=== PATIENT | male | born 1990 | race Caucasian/White ===

== ENCOUNTER 2017-12-25 19:47 | Inpatient (IN) | payer OTHER ==
[~2017-12-25] VITALS: Ht 177.8 cm; Wt 100.7 kg
--- NOTE | 2017-12-25 19:59 | NUR ---
BB AMBULANCE FROM [facility]; CP, FEVER X 1 DAY. NO SOB OR PAIN NOTED. VSS WITH TEMP 103. PT IS VENT/TRACH WITH RT MADE AWARE EN ROUTE. WILL CONTINUE TO MONITOR FOR ANY CHANGES. FAMILY AT BEDSIDE
--- NOTE | 2017-12-25 20:04 | NUR ---
LISA YOUNG AT BEDSIDE SANDRA
--- NOTE | 2017-12-25 20:19 | NUR ---
EKG AT BEDSIDE
[2017-12-25 20:23] LABS: BASOPHILS # (AUTO) 0.4 /CMM (0.0-0.2); EOSINOPHILS % (AUTO) 0.2 % (0.0-6.0); HEMATOCRIT 26 % (39-51); HEMOGLOBIN 8.8 g/dL (13.5-17.5); LYMPHOCYTES # (AUTO) 0.7 /CMM (0.8-4.8); MEAN CORPUSCULAR HGB CONC 34 g/dl (31.0-36.0); MEAN CORPUSCULAR VOLUME 91 fL (80-96); MONOCYTES # (AUTO) 0.6 /CMM (0.1-1.30); MONOCYTES % (AUTO) 6.3 % (2.0-12.0); NEUTROPHILS # (AUTO) 7.8 /CMM (1.8-8.9); NEUTROPHILS % (AUTO) 82.5 % (43.0-81.0); PLATELET COUNT (AUTO) 257 /CMM (150-450); RDW COEFFICIENT OF VARIATION 13.3 (11.5-15.0); RED BLOOD CELL COUNT(AUTO) 2.83 MIL/uL (4.5-6.0); WHITE BLOOD COUNT (AUTO) 9.5 K/uL (4.3-11.0)
[2017-12-25] MEDS ORDERED: IV NS 0.9% 1,000 ML BAG IV ONE (20:30)
[2017-12-25] MEDS ORDERED: ACETAMINOPHEN ES 500 MG TABLET GT ONE (20:30)
--- NOTE | 2017-12-25 20:34 | NUR ---
RT PT RECEIVED VIA TRANSPORT TEAM ON [facility] VENT. PT PLACED ON HOSPITAL VENT WITH NOTED SETTING GIVEN BY TRANSPORT RT. PT TOLERATING SETTING WELL. NO SOB OR REPS DISTRESS NOTED AT THIS TIME. SERVICE LINE BUS CLEANER DONE. AMBU BAG AT [facility]. TRACH PATENT AND SECURE. ALARMS SET AND AUDIBLE. VENT TO RED OUTLET. WILL CONTINUE TO MONITOR PT FOR ANY CHANGES. Addendum: 12/25/17 at 2036 by VERONICA BRANDON RT Amended: Links added.
[2017-12-25 20:35] LABS: INR 1.24 (0.85-1.15)
[2017-12-25] MEDS ORDERED: ACETAMINOPHEN ES 500 MG TABLET ONE (20:37)
[2017-12-25 20:40] LABS: ALANINE AMINOTRANSFERASE 90 U/L (12-78); ALBUMIN 1.5 g/dL (3.4-5.0); ALKALINE PHOSPHATASE 113 U/L (46-116); ASPARTATE AMINOTRANSFERASE 52 U/L (15-37); BILIRUBIN,DIRECT 0.1 mg/dL (0.0-0.2); BILIRUBIN,TOTAL 0.1 mg/dL (0.2-1.0); CALCIUM, SERUM 8.5 mg/dL (8.5-10.1); CARBON DIOXIDE 36 mmol/L (21-32); CHLORIDE 98 mmol/L (98-107); CREATININE 0.3 mg/dL (0.6-1.3); GLUCOSE 130 mg/dL (74-106); POTASSIUM 3.9 mmol/L (3.5-5.1); SODIUM SERUM 135 mmol/L (136-145); TOTAL PROTEIN, SERUM 6.7 g/dL (6.4-8.2); UREA NITROGEN, BLOOD 17 mg/dL (7-18)
[2017-12-25 20:46] LABS: TROPONIN I < 0.017 ng/mL (0.00-0.056)
--- NOTE | 2017-12-25 20:55 | NUR ---
BIN WORKER AT BEDSIDE
[2017-12-25 21:12] LABS: APPEARANCE,URINE Slightly Cloudy (CLEAR); BILIRUBIN,URINE Negative (NEGATIVE); BLOOD, URINE Small Ery/uL (NEGATIVE); COLOR,URINE Other (YELLOW); KETONES,URINE Negative (NEGATIVE); LEUKOCYTE ESTERASE ,URINE Small (NEGATIVE); NITRITE, URINE Negative (NEGATIVE); PH,URINE 8.5 (5.0-8.0); PROTEIN,URINE 100 mg/dl (NEGATIVE); UGLUCOSE Negative (NEGATIVE); UROBILINOGEN,URINE 0.2 EU/dL (0.2)
[2017-12-25 21:16] LABS: BACTERIA,URINE Many /HPF (None Seen); SQUAMOUS EPITHELIAL CELL,UR Few /HPF (None Seen); URINE AMORPHOUS URATE Moderate /HPF (None Seen); WBC,URINE TOO NUMEROUS TO COUN /HPF (0-3)
[2017-12-25] MEDS ORDERED: VANCOMYCIN 1 GM VIAL ONE (21:26)
[2017-12-25] MEDS ORDERED: CEFEPIME 1 GM VIAL ONE (21:26)
--- NOTE | 2017-12-25 21:26 | NUR ---
CALLED [facility] FOR PANEL CALL, DR KEEGAN CARROLL WAS PAGED.
[2017-12-25] MEDS ORDERED: VANCOMYCIN 1 GM in IV D5W 250 ML IV ONE (21:30)
[2017-12-25] MEDS ORDERED: CEFEPIME 1 GM in IV D5W 50 ML IV ONE (21:30)
--- NOTE | 2017-12-25 22:37 | NUR ---
PATIENT IS ASSIGNED TO TELE BED RM# [id number] IN THE TIAN
--- NOTE | 2017-12-25 22:43 | NUR ---
CALLING REPORT TO TIAN NURSE.
--- NOTE | 2017-12-25 22:45 | NUR ---
NURSE TO CALL BACK FOR REPORT.
[2017-12-25 22:58] VITALS: BP 113/69
--- NOTE | 2017-12-25 22:58 | NUR ---
REPORT GIVEN TO ROMULO PARR - TIAN.
[2017-12-25] MEDS ORDERED: ALBU2.5V13 NEB (23:02)
[2017-12-25] MEDS ORDERED: DOCU-141 GT (23:02)
[2017-12-25] MEDS ORDERED: MAGN400O21 PO (23:16)
[2017-12-25] MEDS ORDERED: MIRT15TA PO (23:16)
[2017-12-25] MEDS ORDERED: LACT1CAP61 PO (23:16)
[2017-12-25] MEDS ORDERED: MULT1TAB73 GT (23:16)
[2017-12-25] MEDS ORDERED: TRAM50TA2 GT (23:16)
[2017-12-25] MEDS ORDERED: GABA-532 PO (23:16)
[2017-12-25] MEDS ORDERED: HYDR-552 PO (23:16)
[2017-12-25] MEDS ORDERED: LEVE500T9 PO (23:16)
[2017-12-25] MEDS ORDERED: ACET-868 GT (23:16)
[2017-12-25] MEDS ORDERED: IBUP-1953 PO (23:16)
[2017-12-25 23:27] VITALS: BP 127/79
--- NOTE | 2017-12-25 23:49 | NUR ---
RN NOTE RECEIVED REPORT FROM [facility], PATIENT WAS TRANSFERED FROM ER VIA GURNEY, MOTHER IS BY BEDSIDE, MULTIPLE WOUNDS, PICTURES TAKEN AND PLACED IN THE CHART, NO RESPIRATORY DISTRESS NOTED, VITAL SIGNS TAKEN, TEMPERATURE, TYLENOL WAS GIVEN IN THE ER, COLD BATH PROVIDED, TOLERATED WELL, SINUS TACHY HR 106, PATIENT CAME WITH GILBERT CATHETER FROM THE FACILITY, GILBERT IS INTACT, ON MECHANICAL VENTILATOR, TOLERATES SETTING WELL, ALL SAFETY MEASURES TAKEN, CALL LIGHT WITHIN REACG, ALL BELONGINGS WITHIN REACH, BED IN THE LOWEST POSITION, WILL CONTINUE TO MONITOR PATIENT
[2017-12-26] VITALS (7 sets, daily range): BP systolic 104–113; BP diastolic 64–78
[2017-12-26] MEDS ORDERED: Z GUARD REMEDY 2 OZ OINT TP PRN
[2017-12-26] MEDS ORDERED: ONDANSETRON HCL/PF 4 MG/2 ML VIAL IVP PRN
[2017-12-26] MEDS ORDERED: IBUPROFEN 400 MG TABLET PO PRN
[2017-12-26] MEDS ORDERED: MORPHINE SULFATE INJ 2 MG/ML DISP.SYRIN IV PRN
[2017-12-26] MEDS: IV NS 0.9% 1,000 ML IV PRN ×2 (01:32→20:24)
--- NOTE | 2017-12-26 01:42 | NUR ---
RN NOTE PATIENT IS ALERT/ORIENTED X 3 SAID THAT HE USED TO EAT REGULAR DIET AND FIBERSOURCE GT- FEEDING AT THE [facility], CLARIFIED WITH KEEGAN CARROLL DNP AND KEEGAN CARROLL APPROVED TO PUT AN ORDER FOR REGULAR DIET AND FIBERSOURCE AT 65 ML/HR
[2017-12-26] MEDS: FIBERSOURCE HN 1,000 ML BOTTLE GT PRN ×2 (01:56→23:32)
[2017-12-26] MEDS ORDERED: FIBERSOURCE HN 1,000 ML BOTTLE GT PRN (02:00)
[2017-12-26] MEDS: IPRATROPIUM NEB FS 0.5 MG/2.5 ML AMPUL.NEB NEB SCH ×6 (04:21→23:25)
[2017-12-26] MEDS ORDERED: VANCOMYCIN 1 GM VIAL ONE (05:06)
[2017-12-26] MEDS ORDERED: MEROPENEM 1 G VIAL IV ONE (05:07)
[2017-12-26] MEDS: MEROPENEM 1 G in IV NS 0.9% 100 ML IV SCH ×3 (05:26→20:22)
[2017-12-26] MEDS ORDERED: VANCOMYCIN 1 GM in IV D5W 250 ML IV ONE (06:00)
--- NOTE | 2017-12-26 06:29 | NUR ---
RN NOTE PATIENT IS STABLE, NO RESPIRATORY DISTRESS NOTED, TOLERATED MECHANICAL VENTILATOR SETTING WELL, AFEBRILE, ALL SAFETY MEASURES TAKEN, MOTHER IS BY BEDSIDE
[2017-12-26 06:40] LABS: BASOPHILS % (AUTO) 0.3 % (0.0-2.0); EOSINOPHILS % (AUTO) 0.4 % (0.0-6.0); HEMATOCRIT 27 % (39-51); HEMOGLOBIN 8.7 g/dL (13.5-17.5); LYMPHOCYTES # (AUTO) 1.1 /CMM (0.8-4.8); LYMPHOCYTES % (AUTO) 9.7 % (20.0-44.0); MEAN CORPUSCULAR HGB CONC 33 g/dl (31.0-36.0); MEAN CORPUSCULAR VOLUME 94 fL (80-96); MONOCYTES # (AUTO) 1.1 /CMM (0.1-1.30); MONOCYTES % (AUTO) 9.6 % (2.0-12.0); NEUTROPHILS # (AUTO) 8.8 /CMM (1.8-8.9); PLATELET COUNT (AUTO) 223 /CMM (150-450); RDW COEFFICIENT OF VARIATION 14.3 (11.5-15.0); RED BLOOD CELL COUNT(AUTO) 2.83 MIL/uL (4.5-6.0); WHITE BLOOD COUNT (AUTO) 10.9 K/uL (4.3-11.0)
[2017-12-26] MEDS ORDERED: FEE PK DOSING 1 MIN EA MC ONE (07:05)
[2017-12-26 07:12] LABS: THYROID STIMULATING HORMONE 2.666 uIU/mL (0.358-3.74)
[2017-12-26 07:13] LABS: ALBUMIN 1.5 g/dL (3.4-5.0); BILIRUBIN,TOTAL 0.2 mg/dL (0.2-1.0); CALCIUM, SERUM 7.9 mg/dL (8.5-10.1); CREATININE 0.2 mg/dL (0.6-1.3); PHOSPHORUS 2.6 mg/dL (2.5-4.9); POTASSIUM 3.1 mmol/L (3.5-5.1); TOTAL PROTEIN, SERUM 6.4 g/dL (6.4-8.2)
[2017-12-26] MEDS: ALBUTEROL FS 2.5 MG/0.5 ML VIAL.NEB NEB SCH ×4 (07:47→19:26)
--- NOTE | 2017-12-26 07:47 | NUR ---
ECONOMICS DEPARTMENT CHAIR NOTE PATIENT IN BED , ALL NEEDS ATTENDED RT AT BEDSIDE , FAMILY AT BEDSIDE , WITH TRACH TO VENT SETTING ORDERED, AMBU BAG AT HOB AT ALL TIME, ALERT ORIENTED X3 , WITH G TUBE FEEDING ORDERED KEEP HOB ELEVATED AT ALL TIME ON ,IVF ORDERED RESPIRATION UNLABORED , WILL CONT TO MONITOR CLOSELY
[2017-12-26] MEDS: LEVETIRACETAM (250 MG) 250 MG TABLET PO SCH ×2 (08:44→20:22)
[2017-12-26] MEDS: GABAPENTIN 100 MG CAPSULE PO SCH ×3 (08:44→16:22)
[2017-12-26] MEDS: ACETAMINOPHEN 325 MG TABLET PO PRN ×2 (08:44→23:32)
[2017-12-26] MEDS: TRAMADOL HCL 50 MG TABLET PO SCH ×2 (08:47→16:22)
--- NOTE | 2017-12-26 09:00 | NUR ---
BONE CHAR KILN OPERATOR NOTE T 100.2 TYLENOL VIA G TUBE GIVEN, REFUND TO HAVE BREAKFAST WILL F\U , REFUSED TO HAVE COOLING MEASURE AT THIS TIME ,WILL CONT TO MONITOR
[2017-12-26] MEDS: Magnesium 1GM/D5W 100ML PREMIX 100 ML IV SCH ×4 (09:32→12:37)
--- NOTE | 2017-12-26 09:38 | NUR ---
DYE HOUSE HELPER NOTE SPOKE WITH DR CAM LEVY AT BEDSIDE ,AWARE RADHA T T100.2 AND MAG LEVEL 1.0 WITH NEW ORDER 4 G OF MAG GIVEN WILL F\U
--- NOTE | 2017-12-26 10:00 | NUR ---
BLACK TOP ROLLER NOTE REFUSED REPOSITION , OFFERED X2 AND EXPANDED OF BENEFITS OF REPOSITION ,STILL REFUSING WILL MONITOR CLOSELY
[2017-12-26] MEDS: POTASSIUM CHLORIDE 20 MEQ TAB.PRT.SR PO SCH ×2 (11:25→12:37)
--- NOTE | 2017-12-26 12:10 | NUR ---
J2EE DEVELOPER NOTE OFFERED APPLY ICE PACK FOR COOLING MEASURE STILL REFUSED , ALSO REFUSED REPOSITION , EXPLAINED OF IMPORTANCE OF REPOSITION , BUT STILL STRONGLY REFUSED ,WILL CONT TO ENCOURAGING Addendum: 12/26/17 at 1311 by LÁZARO VIERA RN STILL REFUSING REPOSITION IN BED ,OFFERED X3 AND EXPLAINED OF BENEFITS OR REPOSITION, MOTHER AT BEDSIDE STILL REFUSING STATED PATIENT VERY TIRED DID NOT SLEEP ALL NIGHT , PATIENT ON ISOLEX AIR LOSS BED ,WILL CONT TO MONITOR . ANGEL WOUND NURSE AWARE
--- NOTE | 2017-12-26 12:30 | NUR ---
MELTING FURNACE SKIMMER NOTE SPOKE WITH ANGEL WOUND NURSE STATED THAT WOUND NURSE RN WILL COME TO SEE PATIENT
--- NOTE | 2017-12-26 14:22 | NUR ---
SATURATOR OPERATOR NOTE SPOKE WITH MAGNOLIA BRENNAN RN PRODUCT SAFETY ASSOCIATE NOTIFUED THAT T 100.2 TYLENOL WAS H GIVEN , ALSO C\O CONSTIPATION ,AND OK TO PLACE DVT PUMP, WILL F\U AND MAG 1.0 MAG 4 GRAM WAS GIVEN BY ORDER DR LEVY
[2017-12-26] MEDS: VANCOMYCIN 0.75 GM in IV D5W 250 ML IV SCH ×2 (14:26→21:27)
[2017-12-26] MEDS ORDERED: BISACODYL SUPP (10 MG) 10 MG/SUPP.RECT SUPP.RECT RC ONE (14:30)
--- NOTE | 2017-12-26 15:21 | NUR ---
MOTOR TUNE UP SPECIALIST NOTE DULCOLAX SUP RECTALLY PLACED ORDERED KEEP CLEAN DRY , ALL NEEDS ATTENDED , WILL CONT TO MONITOR CLOSELY
[2017-12-26] MEDS: ACETAMINOPHEN 650 MG/20.3 ML UDC GT PRN (16:23)
[2017-12-26] MEDS: LACTOBACILLUS RHAMNOSUS GG 1 EACH CAP.SPRINK GT SCH (16:23)
--- NOTE | 2017-12-26 16:41 | NUR ---
MAIL TRUCK DRIVER NOTE T 100.2 TYLENOL VIA G TUBE GIVEN ,COOLING MEASURE PROVIDED ,WILL CONT TO MONITOR CLOSELY
[2017-12-26] MEDS ORDERED: DOCUSATE SODIUM 100 MG CAPSULE PO SCH (17:00)
[2017-12-26] MEDS: MIRTAZAPINE 15 MG TABLET PO SCH (17:43)
--- NOTE | 2017-12-26 17:58 | NUR ---
PHOTO TECH NOTE CALLED TO US TECH FOR ABDOMINAL US X2 ,LEFT A MESSAGE ABOUT ABDOMINAL US .PLACED ON NPO AT THIS TIME, WILL AWAIT FOR RETURN X CALL
--- NOTE | 2017-12-26 18:15 | NUR ---
MOTION PICTURE CAMERA LENS TECHNICIAN NOTE US TECH AT BEDSIDE, DOING ABDOMINAL US , WILL F\U
--- NOTE | 2017-12-26 18:52 | NUR ---
BARREL REPAIRER NOTE DVT PUMP APPLIED ORDERED, US OF ABDOMEN DONE, RESUMED G TUBE FEEDING
--- NOTE | 2017-12-26 19:00 | NUR ---
ENDOSCOPY SUPPORT SPECIALIST NOTE PENELOPE RN GUNNERY/ORDNANCE OFFICER ID SEEN PATIENT AWARE THAT T 100.O, BLOOD CX AND URINE CX TAKEN YESTERDAY WILL F\U
--- NOTE | 2017-12-26 19:30 | NUR ---
RN INITIAL NOTE RECEIVED PATIENT IN BED AWAKE, A/O X3 ABLE TO VERBALIZE ALL NEEDS, FAMILY AT BEDSIDE. TRACH MIDLINE AND INTACT, ON MECHANICAL VENTILATOR TO VENT SETTING ORDERED, AMBU BAG AT HOB AT ALL TIMES. GT PATENT AND INTACT WITH TUBE FEEDING ORDERED. WILL KEEP HOB ELEVATED AT ALL TIMES. IV PATENT AND INTACT, FLUSHED WITH NS, NOTED WITH GOOD BLOOD RETURN. CALL LIGHT LEFT WITHIN EASY REACH, BED IN LOWEST AND LOCKED POSITION. WILL CONTINUE TO CLOSELY MONITOR.
--- NOTE | 2017-12-26 20:00 | NUR ---
RN NOTES PATIENT REFUSES TO BE TURNED AND REPOSITIONED. EXPLAINED RISKS AND CONSEQUENCES TO PATIENT AND PATIENT'S MOTHER, BOTH VERBALIZE UNDERSTANDING, STILL REFUSE TO TURN AND REPOSITION. WILL CONTINUE TO MONITOR
[2017-12-27] VITALS: BP 111/72
[2017-12-27] MEDS: ACETAMINOPHEN 650 MG/20.3 ML UDC GT PRN ×2 (00:15→11:35)
[2017-12-27] MEDS: IPRATROPIUM NEB FS 0.5 MG/2.5 ML AMPUL.NEB NEB SCH ×6 (03:09→23:55)
[2017-12-27 04:00] VITALS: BP 116/76
[2017-12-27] MEDS: MEROPENEM 1 G in IV NS 0.9% 100 ML IV SCH ×3 (05:04→20:42)
[2017-12-27] MEDS ORDERED: MORPHINE SULFATE INJ 4 MG/ML DISP.SYRIN ONE (06:01)
[2017-12-27 06:36] LABS: BASOPHILS % (AUTO) 0.2 % (0.0-2.0); EOSINOPHILS % (AUTO) 2.9 % (0.0-6.0); HEMATOCRIT 27 % (39-51); HEMOGLOBIN 9.2 g/dL (13.5-17.5); MEAN CORPUSCULAR HGB CONC 34 g/dl (31.0-36.0); MEAN CORPUSCULAR VOLUME 91 fL (80-96); MONOCYTES # (AUTO) 0.5 /CMM (0.1-1.30); MONOCYTES % (AUTO) 5.2 % (2.0-12.0); NEUTROPHILS # (AUTO) 7.1 /CMM (1.8-8.9); NEUTROPHILS % (AUTO) 80.7 % (43.0-81.0); PLATELET COUNT (AUTO) 235 /CMM (150-450); RDW COEFFICIENT OF VARIATION 14.4 (11.5-15.0); RED BLOOD CELL COUNT(AUTO) 2.95 MIL/uL (4.5-6.0); WHITE BLOOD COUNT (AUTO) 8.8 K/uL (4.3-11.0)
[2017-12-27 06:58] LABS: CALCIUM, SERUM 8.3 mg/dL (8.5-10.1); CREATININE 0.3 mg/dL (0.6-1.3); POTASSIUM 2.9 mmol/L (3.5-5.1)
--- NOTE | 2017-12-27 07:00 | NUR ---
RN CLOSING NOTES PATIENT BATHED, WOUND CULTURE OBTAINED, TOLERATED WELL DESPITE VERBALIZING "HAVING DIFFICULTY BREATHING." SPO2 REMAINED >96% THROUGHOUT BED BATH AND WOUND CARE. WILL ENDORSE THE PATIENT TO THE AM SHIFT NURSE FOR KEREN
--- NOTE | 2017-12-27 07:35 | NUR ---
ANGLEDOZER OPERATOR NOTE: RECEIVED PATIENT IN BED, AWAKE, ALERT, AND ABLE TO MOUTH WORDS. VENT-TRACH DEPENDENT SATURATING 100%. DENIED ANY PAIN. PATIENT REFUSED TO BE TURNED AND EXPRESSED THAT HE CAN NOT BREATH, BUT SPO2 MONITOR SHOWED 100%. HOB ELEVATED. GT CLAMPED AT THIS TIME AND PER PM NURSE THE PATIENT REQUESTED TO HAVE THE GT FEEDING STOPPED AT 0600. AWAITING FOR THE WOUND CARE NURSE FOR EVALUATION. ON FORENSIC ACCOUNTANT, SR HR= 85. BED ALARM AND LOCKED AT ALL TIMES. CALL LIGHT WITHIN REACH. MOTHER PRESENT AT THE BEDSIDE.
[2017-12-27 08:00] VITALS: BP 114/72
[2017-12-27] MEDS: ALBUTEROL FS 2.5 MG/0.5 ML VIAL.NEB NEB SCH ×4 (08:12→20:06)
--- NOTE | 2017-12-27 08:13 | NUR ---
WOUND CARE CONSULT: PT PRESENTS WITH MULTIPLE WOUNDS PRESENT ON ADMISSION INCLUDING STAGE 4 ULCER TO SACRUM WITH PURULENT DRAINAGE, STAGE 4 ULCER TO RT CALF, UNSTAGEABLE ULCER TO LEFT CALF, DTI INTACT TO RT HEEL, SCARRING TO LEFT HEEL AND LEFT ELBOW, UNSTAGEABLE ULCER TO RT ELBOW, LEFT LOWER LEG DISTAL ULCER, &PURPLE INTACT SKIN TO RT ANTERIOR LOWER LEG. ALL SKIN PROTECTION AND WOUND CARE RECOMMENDATIONS MADE AND DISCUSSED WITH NURSING STAFF. PT ON NICHO ISOFLEX LOW AIRLOSS BED. SURGICAL CONSULT RECOMMENDED. WILL SEE PRN. CURRENT LEXA SCORE IS 10. MD IN AGREEMENT WITH PLAN OF CARE. Addendum: 12/27/17 at 0816 by ANGEL GLEASON WNDNU Amended: Links added.
[2017-12-27] MEDS ORDERED: HYDROGEL DRESSING 90 GM TUBE TP PRN (08:30)
[2017-12-27] MEDS: VANCOMYCIN 1 GM in IV D5W 250 ML IV SCH ×2 (08:52→16:33)
[2017-12-27] MEDS: LACTOBACILLUS RHAMNOSUS GG 1 EACH CAP.SPRINK GT SCH ×2 (08:53→16:33)
[2017-12-27] MEDS: DOCUSATE SODIUM LIQ 100 MG/10 ML UDC GT SCH ×2 (08:53→16:33)
[2017-12-27] MEDS: LEVETIRACETAM SOL (5 ML) 100 MG/ML UDC GT SCH ×2 (08:53→20:40)
[2017-12-27] MEDS: TRAMADOL HCL 50 MG TABLET GT SCH ×2 (08:54→16:34)
[2017-12-27] MEDS: GABAPENTIN 100 MG CAPSULE GT SCH ×3 (09:00→16:33)
[2017-12-27] MEDS ORDERED: HYDROGEL DRESSING 90 GM TUBE TP SCH (09:00)
[2017-12-27] MEDS ORDERED: DAKINS QUARTER STRENGTH (0.125%) 480 ML BOTTLE TOP SCH (09:00)
[2017-12-27] MEDS: Magnesium 1GM/D5W 100ML PREMIX 100 ML IV SCH ×4 (10:10→14:36)
[2017-12-27] MEDS: POTASSIUM CHLORIDE 20 MEQ POWDER PACKET GT SCH ×3 (11:51→13:44)
[2017-12-27 12:00] VITALS: BP 111/72
--- NOTE | 2017-12-27 12:30 | NUR ---
CENTRIFUGE SEPARATOR OPERATOR NOTE: RECHECKED PT'S TEMP= 99.7F. REFUSED COOLING MEASURES. CURRENTLY ON IV ANTIBIOTICS.
[2017-12-27] MEDS: CADEXOMER IODINE 40 GM TUBE TP SCH (13:44)
--- NOTE | 2017-12-27 15:45 | NUR ---
MENTAL HEALTH NURSE PRACTITIONER NOTE: CARMINA MERIDA INFORMED ABOUT THE URINE CULTURE RESULT AND THE PATIENT'S TEMP OF 100.5F. UNABLE TO ADMINISTER TYLENOL PRN DUE TO THE LAST ADMINISTRATION OF 4HR AGO. OFFERED COOLING MEASURES, BUT PATIENT REFUSED AND STATED "I FEEL OKAY, I DON'T FEEL THAT I HAVE A FEVER." PAINTING INSTRUCTOR W/ NO NEW ORDER. WILL CONTINUE TO MONITOR.
--- NOTE | 2017-12-27 15:55 | NUR ---
CAR WASH SUPERVISOR NOTE: CALLED AND PAGED MAGNOLIA MALIK NP RE: THE URINE CULTURE RESULT. AWAITING FOR CALL BACK.
[2017-12-27 16:00] VITALS: BP 102/67
--- NOTE | 2017-12-27 16:00 | NUR ---
TRIPLE AIR VALVE TESTER NOTE: PATIENT REFUUSED TO BE TURNED AND REPOSITIONED Q2HR AND IS AWARE OF IT. MAGNOLIA MALIK NP INFORMED ABOUT IT TOO.
--- NOTE | 2017-12-27 17:21 | NUR ---
PATIENT RECEIVED TRACH ON MECHANICAL VENTILATION. SP02 > 92%. SUCTION DONE, MODERATE THICK WHITE/YELLOW SECRETIONS NOTED. TRACH SECURED AND PATENT. CONTINUOUS PULSE OX AT BEDSIDE. ALARMS ON AND AUDIBLE. VENT PLUGGED INTO RED OUTLET. NO SOB NOTED. MONITORED CLOSELY T/O SHIFT. Addendum: 12/27/17 at 1721 by TEO CHADWICK RT Amended: Links added.
[2017-12-27] MEDS: MIRTAZAPINE 15 MG TABLET PO SCH (18:01)
--- NOTE | 2017-12-27 19:15 | NUR ---
HOSPITAL PLAN ADMINISTRATOR NOTE: PATIENT IS ON STABLE CONDITION. VENT-TRACH DEPENDENT SATURATING 100%. DENIED ANY PAIN AT THIS TIME. GT SITE INTACT AND PATENT. (R) WRIST IV LINE INFUSING W/ NS@75ML/HR. GT REMAINED ON CLAMPED AND WILL BE EVALUATED BY THE SPEECH THERAPIST BY TOMORROW. MAGNOLIA MALIK, CARMINA AWARE THAT THE MEAL INTAKE FOR BREAKFAST, LUNCH AND DINNER WAS 75-100%. NO EPISODE OF GAGGING. JED LOPEZ, SIGNED THE INFORMED CONSENT FOR THE WOUND DEBRIDEMENT. REPORT GIVEN TO PM SHIFT NURSE FOR CONTINUITY OF CARE.
[2017-12-27] MEDS: IV NS 0.9% 1,000 ML IV PRN (19:35)
[2017-12-27 20:00] VITALS: BP 99/65
[2017-12-27] MEDS: DAKINS QUARTER STRENGTH (0.125%) 480 ML BOTTLE TOP SCH (20:40)
[2017-12-27] MEDS: IBUPROFEN 400 MG TABLET GT PRN (20:40)
[2017-12-28] VITALS: BP 108/68
[2017-12-28] MEDS: VANCOMYCIN 1 GM in IV D5W 250 ML IV SCH ×3 (01:24→16:57)
[2017-12-28] MEDS: IPRATROPIUM NEB FS 0.5 MG/2.5 ML AMPUL.NEB NEB SCH ×5 (03:57→19:50)
[2017-12-28 04:00] VITALS: BP 114/74
[2017-12-28] MEDS: MEROPENEM 1 G in IV NS 0.9% 100 ML IV SCH ×2 (04:57→12:22)
[2017-12-28 06:27] LABS: BASOPHILS % (AUTO) 0.3 % (0.0-2.0); EOSINOPHILS % (AUTO) 3.3 % (0.0-6.0); HEMATOCRIT 24 % (39-51); HEMOGLOBIN 8.1 g/dL (13.5-17.5); LYMPHOCYTES # (AUTO) 1.7 /CMM (0.8-4.8); LYMPHOCYTES % (AUTO) 22.6 % (20.0-44.0); MEAN CORPUSCULAR HGB CONC 34 g/dl (31.0-36.0); MEAN CORPUSCULAR VOLUME 91 fL (80-96); MONOCYTES # (AUTO) 0.4 /CMM (0.1-1.30); MONOCYTES % (AUTO) 5.6 % (2.0-12.0); NEUTROPHILS # (AUTO) 5.3 /CMM (1.8-8.9); NEUTROPHILS % (AUTO) 68.2 % (43.0-81.0); PLATELET COUNT (AUTO) 241 /CMM (150-450); RED BLOOD CELL COUNT(AUTO) 2.64 MIL/uL (4.5-6.0); WHITE BLOOD COUNT (AUTO) 7.7 K/uL (4.3-11.0)
--- NOTE | 2017-12-28 06:32 | NUR ---
TELE-1/MANAGER HOSPITAL PT DECLINING AM CARE AND WOUND TREATMENT AT THIS TIME. WILL ENDORSE TO AM SHIFT.
[2017-12-28 06:36] LABS: CALCIUM, SERUM 7.9 mg/dL (8.5-10.1); CREATININE 0.3 mg/dL (0.6-1.3); MAGNESIUM 1.5 mg/dL (1.8-2.4); POTASSIUM 3.4 mmol/L (3.5-5.1)
--- NOTE | 2017-12-28 07:28 | NUR ---
RN NOTES RECEIVED PT FROM CERTIFIED PEST CONTROL TECHNICIAN, VENT/TRACH DEPENDENT, A&0X3, ABLE TO MOUTH OUT WORDS MAKE NEEDS KNOWN. SR ON THE TELE LINA HR 64. GILBERT DRAINING TO GRAVITY. RWRIST IV SITE INTACT WITH IVF AT 75ML/HR. MOM AT BEDSIDE. BED LOCKED AND IN LOWEST POSITION, CALL LIGHT WITHIN REACH, SIDE RAILS UPX3, WILL CONT TO LINA.
[2017-12-28] MEDS: ALBUTEROL FS 2.5 MG/0.5 ML VIAL.NEB NEB SCH ×4 (07:38→19:50)
[2017-12-28 08:00] VITALS: BP 125/87
[2017-12-28] MEDS: DOCUSATE SODIUM LIQ 100 MG/10 ML UDC GT SCH ×2 (08:08→16:58)
[2017-12-28] MEDS: GABAPENTIN 100 MG CAPSULE GT SCH ×3 (08:09→16:58)
[2017-12-28] MEDS: LACTOBACILLUS RHAMNOSUS GG 1 EACH CAP.SPRINK GT SCH ×2 (08:09→16:58)
[2017-12-28] MEDS: LEVETIRACETAM SOL (5 ML) 100 MG/ML UDC GT SCH ×2 (08:09→20:40)
[2017-12-28] MEDS: TRAMADOL HCL 50 MG TABLET GT SCH ×2 (08:12→16:57)
[2017-12-28] MEDS: DAKINS QUARTER STRENGTH (0.125%) 480 ML BOTTLE TOP SCH ×2 (08:12→20:41)
[2017-12-28] MEDS: CADEXOMER IODINE 40 GM TUBE TP SCH (08:13)
[2017-12-28] MEDS ORDERED: SILVER NITRATE APPLICATOR 1 EA BOX TP ONE (10:00)
[2017-12-28] MEDS ORDERED: LIDOCAINE 1%-EPI 1:100,000 20 ML VIAL TP ONE (10:00)
[2017-12-28] MEDS ORDERED: POTASSIUM CHLORIDE 20 MEQ POWDER PACKET GT ONE (11:00)
[2017-12-28] MEDS: Magnesium 1GM/D5W 100ML PREMIX 100 ML IV SCH ×2 (11:31→13:34)
[2017-12-28 12:00] VITALS: BP 110/75
[2017-12-28] MEDS: MORPHINE SULFATE INJ 4 MG/ML DISP.SYRIN IV PRN (15:54)
[2017-12-28 16:00] VITALS: BP 113/76
[2017-12-28] MEDS: MIRTAZAPINE 15 MG TABLET PO SCH (17:00)
--- NOTE | 2017-12-28 18:59 | NUR ---
RN NOTES PT REMAINED IN STABLE CONDITION THROUGHOUT THE SHIFT, ALL NEEDS MET. WILL ENDORSE TO ONCOMING SHIFT.
[2017-12-28 20:00] VITALS: BP 112/73
[2017-12-28] MEDS: ACETAMINOPHEN 650 MG/20.3 ML UDC GT PRN (20:40)
[2017-12-28] MEDS: IV NS 0.9% 1,000 ML IV PRN (20:40)
[2017-12-28] MEDS: COLISTIMETHATE SODIUM 75 MG in IV NS 0.9% 50 ML IV SCH (21:18)
[2017-12-29] VITALS: BP 113/73
[2017-12-29] MEDS: IPRATROPIUM NEB FS 0.5 MG/2.5 ML AMPUL.NEB NEB SCH ×7 (00:12→23:33)
[2017-12-29] MEDS: VANCOMYCIN 1 GM in IV D5W 250 ML IV SCH ×3 (01:22→19:01)
[2017-12-29] MEDS: ACETAMINOPHEN 650 MG/20.3 ML UDC GT PRN ×2 (02:39→21:05)
[2017-12-29 04:00] VITALS: BP 110/63
[2017-12-29] MEDS: MORPHINE SULFATE INJ 4 MG/ML DISP.SYRIN IV PRN ×5 (05:42→23:00)
[2017-12-29 06:28] LABS: CALCIUM, SERUM 8.5 mg/dL (8.5-10.1); CREATININE 0.2 mg/dL (0.6-1.3); MAGNESIUM 1.7 mg/dL (1.8-2.4); POTASSIUM 3.5 mmol/L (3.5-5.1)
--- NOTE | 2017-12-29 06:44 | NUR ---
TELE-1/BUSINESS ANALYST SALES OPERATIONS PT DECLINING AM CARE AND WOUND TREATMENT AT THIS TIME. WILL ENDORSE TO AM SHIFT.
--- NOTE | 2017-12-29 07:00 | NUR ---
RN INITIAL NOTES RECEIVED PT IN BED RESTING EYES CLOSED , VENT/TRACH DEPENDENT, A&0X3, ABLE TO MOUTH OUT WORDS MAKE NEEDS KNOWN. SR ON THE TELE LINA HR 74. GILBERT DRAINING TO GRAVITY YELLOW URINE . R WRIST 20 G IV SITE INTACT BLOOD RETURN HOWEVER IV MAY NEED TO BE REPLACED WITH IVF AT 75ML/HR. PATIENTS MOM AT BEDSIDE. BED LOCKED AND IN LOWEST POSITION, CALL LIGHT WITHIN REACH, SIDE RAILS UPX3, RN WILL CONT TO LINA.
[2017-12-29 08:00] VITALS: BP 119/74
[2017-12-29] MEDS: ALBUTEROL FS 2.5 MG/0.5 ML VIAL.NEB NEB SCH ×4 (08:08→19:42)
--- NOTE | 2017-12-29 08:16 | NUR ---
CUFF PARTIALLY DEFLATED TO ALLOW PT TO EAT. MOTHER AT BEDSIDE FEEDING PT. VENT ALARMS SET AND AUDIBLE. VENT PLUGGED INTO RED OUTLET. ROMULO SPEAR.
[2017-12-29] MEDS: COLISTIMETHATE SODIUM 75 MG in IV NS 0.9% 50 ML IV SCH ×2 (08:43→20:56)
[2017-12-29] MEDS: LACTOBACILLUS RHAMNOSUS GG 1 EACH CAP.SPRINK GT SCH ×2 (08:44→17:01)
[2017-12-29] MEDS: DOCUSATE SODIUM LIQ 100 MG/10 ML UDC GT SCH ×2 (08:44→17:00)
[2017-12-29] MEDS: LEVETIRACETAM SOL (5 ML) 100 MG/ML UDC GT SCH ×2 (08:44→20:07)
[2017-12-29] MEDS: TRAMADOL HCL 50 MG TABLET GT SCH ×2 (08:45→17:00)
[2017-12-29] MEDS: GABAPENTIN 100 MG CAPSULE GT SCH ×3 (08:45→17:01)
[2017-12-29] MEDS: DAKINS QUARTER STRENGTH (0.125%) 480 ML BOTTLE TOP SCH ×2 (08:45→20:59)
[2017-12-29] MEDS: CADEXOMER IODINE 40 GM TUBE TP SCH (08:46)
--- NOTE | 2017-12-29 10:30 | NUR ---
RN NOTE RN ATTEMPT 2 X FOR IV INSERTION WITHOUT SUCCESS, RN NOTIFIED CHARGE NURSE SOON WHO ALLSO ATTEMPTED 2X WITHOUT SUCCESS.
[2017-12-29] MEDS: Magnesium 1GM/D5W 100ML PREMIX 100 ML IV SCH ×2 (11:45→13:14)
[2017-12-29 12:00] VITALS: BP 105/73
--- NOTE | 2017-12-29 12:00 | NUR ---
RN NOTE INFUSION HELD DUE TO POSSIBILITY OF IV INFILTRATION, CHARGE NURSE NOTIFIED
[2017-12-29 14:04] LABS: ALBUMIN 1.5 g/dL (3.4-5.0); BILIRUBIN,DIRECT 0.1 mg/dL (0.0-0.2); BILIRUBIN,TOTAL 0.2 mg/dL (0.2-1.0); TOTAL PROTEIN, SERUM 6.6 g/dL (6.4-8.2)
[2017-12-29 16:00] VITALS: BP_SYST 109; BP_SYST 110; BP_DIAS 68; BP_DIAS 84
--- NOTE | 2017-12-29 16:45 | NUR ---
RN NOTE RN CONTACTED ASTRONAUT MISSION SPECIALIST MICHAEL TO ATTEMPT IV PLACEMENT- WITH THE VEIN FINDER MACHINE ASTRONAUT MISSION SPECIALIST UNSUCCESSFUL X 3 ATTEMPTS. PT REQUEST THAT ANOTHER ATTEMPT IS MADE TOMORROW. IV FLUIDS REMAIN OFF DUE TO POSSIBILITY OF INFILTRATION PATIENT AND FAMILY STILL INSIST ON RN GIVEN PRN PAIN MEDICATION VIA RIGHT WRIST 20 G IV
[2017-12-29] MEDS: MIRTAZAPINE 15 MG TABLET PO SCH (18:58)
[2017-12-29] MEDS: IV NS 0.9% 1,000 ML IV PRN (19:48)
--- NOTE | 2017-12-29 19:49 | NUR ---
RN CLOSING NOTES PT REMAINED IN STABLE CONDITION THROUGHOUT THE SHIFT, ALL NEEDS MET.PATIENT HAS HAD IV CONCERNS IN REGARDS TO THE NEED FOR A PICC LINE OR MIDLINE CHARGE NURSE NOTIFIED REQUEST PER RN. PATIENT AND FAMILY EDUCATED ON THE NEED/ POSSIBILITY PICC LINE , PATIENT REQUEST THE THIS IS PLACE TOMORROW. PATIENT IS ABLE TO MAKE NEEDS KNOWN GIRLFRIEND IS AT BEDSIDE CURRENTLY AND HAS NO COMPLAINTS , PATIENT IS CURRENTLY RECEIVING VANCOMYCIN. NEW IV NS HUNG ALONG WITH NEW TUBING. RN ENDORSED TO ONCOMING SHIFT OF PATIENT COMPLAINTS OF NECK PAIN AND REQUEST FOR PRN MORPHINE Q 4HRS. CONTINUATION OF CARE ENDORSE TO PM RN .
--- NOTE | 2017-12-29 19:55 | NUR ---
BILINGUAL RECEPTIONIST: RECEIVED VENT DEPENDENT TO TRACH PT, A/O X4 VIA MOUTHING OF WORDS. VENT SETTINGS ORDERED AND TOLERATING WELL WT NO ACUTE DISTRESS. NO C/O PAIN AT THIS TIME AND WILL ADMINISTER PAIN MED NEEDED. SR ON TELE MONITOR. AFEBRILE. CHARGE NURSE ABLE TO PLACE ADDITIONAL IV ACCESS ON LEFT FOREARM, NO NEED FOR PICC AT THIS TIME. RIGHT ARM SWELLING NOTED WILL OFFLOAD AT ALL TIMES. GT CLAMPED. F/C PATENT AND INTACT DRAINING YELLOW URINE TO GRAVITY. CONTACT PRECAUTIONS OBSERVED. HOB AT 35 DEGREES. SAFETY PRECAUTIONS NOTED. WILL CONTINUE TO MONITOR.
[2017-12-29 20:00] VITALS: BP 102/67
[2017-12-30] VITALS: BP_SYST 126; BP_SYST 99; BP_DIAS 47; BP_DIAS 68
--- NOTE | 2017-12-30 00:45 | NUR ---
CHANNEL MACHINE OPERATOR: PT REFUSED Q2H REPOSITIONING DESPITE EXPLANATION OF RISKS AND BENEFITS. HE SAID HE'S COMFORTABLE THE WAY HE IS. AT BEDSIDE MADE AWARE.
[2017-12-30] MEDS: VANCOMYCIN 1 GM in IV D5W 250 ML IV SCH ×2 (01:59→08:12)
[2017-12-30] MEDS: IPRATROPIUM NEB FS 0.5 MG/2.5 ML AMPUL.NEB NEB SCH ×6 (03:15→23:06)
[2017-12-30 04:00] VITALS: BP 108/66
[2017-12-30] MEDS: MORPHINE SULFATE INJ 4 MG/ML DISP.SYRIN IV PRN ×4 (05:25→18:38)
--- NOTE | 2017-12-30 06:00 | NUR ---
BABY FORMULA MIXER: VS WITHIN PATIENT'S BASELINE. PAIN MEDS GIVEN FOR NECK PAIN AND WT GOOD EFFECT. REMAINED NON-COMPLIANT WT Q2H REPOSITIONING AND REFUSED BED BATH. INFORMED AT BEDSIDE TO ENCOURAGE PT TO BE REPOSITIONED AND CLEANED SOON TO PREVENT FURTHER SKIN BREAKDOWN AND VERBALIZED UNDERSTANDING. SAFETY PRECAUTION NOTED AT ALL TIMES.
[2017-12-30 06:25] LABS: BASOPHILS % (AUTO) 0.1 % (0.0-2.0); HEMATOCRIT 26 % (39-51); HEMOGLOBIN 8.4 g/dL (13.5-17.5); LYMPHOCYTES # (AUTO) 1.7 /CMM (0.8-4.8); MEAN CORPUSCULAR HGB CONC 33 g/dl (31.0-36.0); MEAN CORPUSCULAR VOLUME 93 fL (80-96); MONOCYTES # (AUTO) 0.3 /CMM (0.1-1.30); NEUTROPHILS # (AUTO) 11.5 /CMM (1.8-8.9); NEUTROPHILS % (AUTO) 83.9 % (43.0-81.0); PLATELET COUNT (AUTO) 303 /CMM (150-450); RED BLOOD CELL COUNT(AUTO) 2.76 MIL/uL (4.5-6.0); WHITE BLOOD COUNT (AUTO) 13.7 K/uL (4.3-11.0)
[2017-12-30 06:41] LABS: CALCIUM, SERUM 7.8 mg/dL (8.5-10.1); CREATININE 0.2 mg/dL (0.6-1.3); MAGNESIUM 1.5 mg/dL (1.8-2.4)
[2017-12-30] MEDS: ALBUTEROL FS 2.5 MG/0.5 ML VIAL.NEB NEB SCH ×4 (07:29→19:43)
--- NOTE | 2017-12-30 07:30 | NUR ---
DAIRY FROZEN MANAGER INITIAL NOTES RECEIVED PATIENT AWAKE IN BED, A0X3, ABLE TO MOUTH WORDS AND MAKE NEEDS KNOWN, ON VENT SETTINGS ORDERED, TOLERATING WELL NO DISTRESS NOTED, 98% O2 SAT, ON TELE MONITORING SR 90s, FC TO GRAVITY, CLEAR YELLOW URINE NOTED, GT CLAMPED, FLUSHED AND PATENT, IV CLEAN AND PATENT INFUSING NS @ 75 ML/HR, PATIENT HAS SMALL FEVER OF 100.1 AND PAIN IN HIS NECK, WILL GIVE TYLENOL AND SCHEDULED PAIN MEDICATION FOR 0900, AT BEDSIDE, BED IN LOW AND LOCKED POSITION, CALL LIGHT WITHIN REACH, WILL CONTINUE TO MONITOR.
[2017-12-30] MEDS: ACETAMINOPHEN 650 MG/20.3 ML UDC GT PRN (07:33)
[2017-12-30 08:00] VITALS: BP 108/65
[2017-12-30] MEDS: DOCUSATE SODIUM LIQ 100 MG/10 ML UDC GT SCH ×2 (08:12→16:43)
[2017-12-30] MEDS: LACTOBACILLUS RHAMNOSUS GG 1 EACH CAP.SPRINK GT SCH ×2 (08:12→16:43)
[2017-12-30] MEDS: GABAPENTIN 100 MG CAPSULE GT SCH ×3 (08:12→16:43)
[2017-12-30] MEDS: LEVETIRACETAM SOL (5 ML) 100 MG/ML UDC GT SCH ×2 (08:12→20:46)
[2017-12-30] MEDS: TRAMADOL HCL 50 MG TABLET GT SCH ×2 (08:13→16:43)
[2017-12-30] MEDS: DAKINS QUARTER STRENGTH (0.125%) 480 ML BOTTLE TOP SCH ×2 (08:13→20:47)
[2017-12-30] MEDS: Magnesium 1GM/D5W 100ML PREMIX 100 ML IV SCH ×2 (09:08→11:05)
[2017-12-30] MEDS: COLISTIMETHATE SODIUM 75 MG in IV NS 0.9% 50 ML IV SCH ×2 (09:09→20:46)
[2017-12-30 12:00] VITALS: BP 111/71
[2017-12-30 16:00] VITALS: BP 98/56
[2017-12-30] MEDS: IV NS 0.9% 1,000 ML IV PRN (16:45)
[2017-12-30] MEDS: MIRTAZAPINE 15 MG TABLET PO SCH (17:06)
--- NOTE | 2017-12-30 18:46 | NUR ---
HAT BODY SORTER END NOTES PATIENT RESTING IN BED, NO SIGNS OF DISTRESS, ALL NEEDS ATTENDED TO, PAIN MEDICATIONS GIVEN NEEDED, PATIENT HAS REFUSED TURNING DESPITE SEVERAL ATTEMPTS IN TEACHING IN BOTH CROATIAN AND MONEGASQUE, PATIENT ALLOWED FOR BED BATH AND WOUND CARE OF ALL WOUNDS, CONTINUES TO REFUSE G-TUBE FEEDINGS, WHEELMAN HELENA AWARE, WILL ENDORSE TO SUPERVISOR POWDERED METAL FOR CONTINUITY OF CARE.
--- NOTE | 2017-12-30 19:34 | NUR ---
AIR EXPORT AGENT NOTES RECEIVED PT ON BED, A/0X3. ON [facility] VENT SETTING SATURATING WELL. ON TELE MONITOR SR 84. IV ACCESS ON LW NS @ 75CC/HR. HEAD OF BED ELEVATED. SIDE RAILS UP. CALL LIGHT WITHIN REACH. WILL CONTINUE TO MONITOR PT CLOSELY.
[2017-12-30 20:00] VITALS: BP 108/69
[2017-12-30] MEDS: LINEZOLID 600 MG TABLET PO SCH (20:46)
--- NOTE | 2017-12-30 22:21 | NUR ---
CELL OPERATOR NOTES PATIENT REFUSED TURNING EVERY 2 HOURS, STATING THAT HE IS COMFORTABLE WITH HIS POSITION. EXPLAINED THE BENEFITS OF REPOSITIONING . PATIENT MOTHER MADE AWARE THAT PATIENT IS REFUSING REPOSITIONING Q2H AND BED BATH. PATIENT REFUSED PICTURE TAKEN ON HIS SACRAL. PICTURE TAKEN ON THE EXTREMITIES.
[2017-12-31] VITALS (7 sets, daily range): BP systolic 103–133; BP diastolic 60–77
--- NOTE | 2017-12-31 02:58 | NUR ---
FACTORY MACHINE COMPUTER OPERATOR NOTES PATIENT STILL REFUSING REPOSITIONING Q2H. EXPLAINED THE BENEFITS OF REPOSITIONING.
[2017-12-31] MEDS: IPRATROPIUM NEB FS 0.5 MG/2.5 ML AMPUL.NEB NEB SCH ×5 (03:10→19:46)
[2017-12-31] MEDS: MORPHINE SULFATE INJ 4 MG/ML DISP.SYRIN IV PRN ×3 (04:12→20:28)
--- NOTE | 2017-12-31 06:18 | NUR ---
PIPE STRESS ENGINEER NOTES NO ACUTE CHANGES NOTED DURING THE SHIFT. PROVIDED COMFORT AND SAFETY. PATIENT REFUSED TO BE REPOSITION Q2H AND WOUND CARE. EXPLAINED THE RISK OF IT. WILL ENDORSE TO THE AM NURSE FOR KEREN.
[2017-12-31 06:38] LABS: BASOPHILS % (AUTO) 0.4 % (0.0-2.0); EOSINOPHILS % (AUTO) 1.3 % (0.0-6.0); HEMATOCRIT 26 % (39-51); HEMOGLOBIN 8.6 g/dL (13.5-17.5); LYMPHOCYTES # (AUTO) 1.6 /CMM (0.8-4.8); LYMPHOCYTES % (AUTO) 13.3 % (20.0-44.0); MEAN CORPUSCULAR HGB CONC 33 g/dl (31.0-36.0); MEAN CORPUSCULAR VOLUME 91 fL (80-96); MONOCYTES # (AUTO) 0.5 /CMM (0.1-1.30); MONOCYTES % (AUTO) 4.2 % (2.0-12.0); NEUTROPHILS # (AUTO) 9.8 /CMM (1.8-8.9); NEUTROPHILS % (AUTO) 80.8 % (43.0-81.0); PLATELET COUNT (AUTO) 456 /CMM (150-450); RDW COEFFICIENT OF VARIATION 13.8 (11.5-15.0); RED BLOOD CELL COUNT(AUTO) 2.83 MIL/uL (4.5-6.0); WHITE BLOOD COUNT (AUTO) 12.1 K/uL (4.3-11.0)
[2017-12-31 06:46] LABS: CALCIUM, SERUM 8.7 mg/dL (8.5-10.1); CREATININE 0.2 mg/dL (0.6-1.3); MAGNESIUM 1.5 mg/dL (1.8-2.4); POTASSIUM 3.5 mmol/L (3.5-5.1)
[2017-12-31] MEDS: ALBUTEROL FS 2.5 MG/0.5 ML VIAL.NEB NEB SCH ×4 (07:38→19:46)
--- NOTE | 2017-12-31 07:38 | NUR ---
CHILD CARE EDUCATION COORDINATOR NOTES RECEIVED PATIENT SLEEPING IN BED, ON VENT SETTINGS ORDERED, TOLERATING WELL NO DISTRESS NOTED, 98% O2 SAT, ON TELE MONITORING SR 60s, FC TO GRAVITY, CLEAR YELLOW URINE NOTED, GT CLAMPED, FLUSHED AND PATENT, IV CLEAN AND PATENT INFUSING NS @ 75 ML/HR, PATIENT 0900, BED IN LOW AND LOCKED POSITION, CALL LIGHT WITHIN REACH, WILL CONTINUE TO MONITOR.0WILL CONT TO MONITOR CLOSELY Addendum: 12/31/17 at 0754 by LÁZARO VIERA RN PATIENT WITH TRACH TO VENT SETTING ORDERED AMBU BAG AT HOB
[2017-12-31] MEDS: DOCUSATE SODIUM LIQ 100 MG/10 ML UDC GT SCH ×2 (08:57→16:41)
[2017-12-31] MEDS: TRAMADOL HCL 50 MG TABLET GT SCH ×2 (08:57→16:41)
[2017-12-31] MEDS: LEVETIRACETAM SOL (5 ML) 100 MG/ML UDC GT SCH ×2 (08:57→20:14)
[2017-12-31] MEDS: COLISTIMETHATE SODIUM 75 MG in IV NS 0.9% 50 ML IV SCH ×2 (08:58→20:14)
[2017-12-31] MEDS: LINEZOLID 600 MG TABLET PO SCH ×2 (08:59→20:14)
[2017-12-31] MEDS: LACTOBACILLUS RHAMNOSUS GG 1 EACH CAP.SPRINK GT SCH ×2 (08:59→16:41)
[2017-12-31] MEDS: DAKINS QUARTER STRENGTH (0.125%) 480 ML BOTTLE TOP SCH ×2 (08:59→20:15)
[2017-12-31] MEDS: GABAPENTIN 100 MG CAPSULE GT SCH ×3 (08:59→16:40)
--- NOTE | 2017-12-31 09:00 | NUR ---
GARBAGE DEPOT WORKER NOTE NOTED PATIENT IS DIAPHORETIC T 99.7 .KEEP CLEAN DRY , WILL MONITOR CLOSELY , REFUSED TO HAVE BREAKFAST EXPLAINED OF IMPORTANCE TO EAT STILL REFUGED
[2017-12-31] MEDS: IV NS 0.9% 1,000 ML IV PRN (09:08)
--- NOTE | 2017-12-31 10:32 | NUR ---
television tube inspector note patient refused to do reposition, offered x2 still refused , will cont to encourage
--- NOTE | 2017-12-31 11:18 | NUR ---
UNEMPLOYMENT CLAIMS ADJUDICATOR NOTE OFFERED TO START G TUBE FEEDING BUT PATIENT STRONGLY REFUSED, EXPLAINED OF BENEFITS IF G TUBE FEEDING STILL REFUSING DESPITE OF EXPLANATION, WILL INFORM DOCTOR
[2017-12-31] MEDS: Magnesium 1GM/D5W 100ML PREMIX 100 ML IV SCH ×2 (11:56→13:01)
--- NOTE | 2017-12-31 13:20 | NUR ---
CYLINDER VALVE REPAIRER NOTE REFUSE TO HAVE LUNCH DESPITE ALL EXPLANATION TO EAT , WILL CONT TO ENCOURAGING TO EAT
--- NOTE | 2017-12-31 15:19 | NUR ---
TELE RNNNOTE TRYED TO DO SACRAL TX BUT PATIENT UNABLE TO STAY ON SIDE , STATED THAT CANT BREATH , INCREASED 100 % OF 02 BUT STILL CANT HANDLE TO STAY ON SIDE FOR TX ,TX NOT COMPLETED WILL MONITOR CLOSELY RT CALLED BREATHING TX DONE
--- NOTE | 2017-12-31 16:27 | NUR ---
WAREHOUSE FOREMAN NOTE CALLED TO MAGNOLIA MALIK RN ACTUARY NOTIFIED THAT BP 103/64 HR 128 -130 ALSO NOTIFIED THAT PATIENT REFUSING TO HAVE REPOSITION Q 2HOUR AT RISK FOR FURTHER SKIN BREAKDOWN , AND G TUBE FEEDING ALSO REFUSING WELL PO FOOD , ALSO NOTIFIED THAT PATIENT UNABLE TO HANDLE TO STAY ON SIDE DURING SACRAL TX EASILY GET DESATURATED SAT 88-85%_ AND C\O CANT BREATH DESPITE 100% OF O2 WAS GIVEN ,ORDERED BOLUS 250 NS TIME ONE ,ORDER CARRIED OUT Addendum: 12/31/17 at 1654 by LÁZARO VIERA RN MAGNOLIA SEBASTIAN NP AWARE THAT PATIENT MAG TODAY WAS 1.5 AND ALBUMIN 1.5 PREALBUMIN 12.2 AWARE THAT EARLIER WAS DIAPHORETICS NO NEW ORDER AT THIS TIME, WILL CONT TO MONITOR CLOSELY
[2017-12-31] MEDS ORDERED: IV NS 0.9% 250 ML IV ONE (16:30)
--- NOTE | 2017-12-31 17:05 | NUR ---
REGULATORY AUDITOR NOTE AFTER BOLUS GIVEN 250 ML OF NS ,BP NOW 122/60 HR 105 ,WILL MONITOR CLOSELY
[2017-12-31] MEDS: MIRTAZAPINE 15 MG TABLET PO SCH (17:08)
--- NOTE | 2017-12-31 17:47 | NUR ---
POWER CRANE OPERATOR NOTE FREQUENT TRACH AND ORAL SUCTION F DONE , ALL NEEDS ATTENDED ,NOT IN ACUTE DISTRESS AT THIS TIME
--- NOTE | 2017-12-31 18:00 | NUR ---
ELECTION WATCHER NOTE PATIENT STILL REFUSING TO DO REPOSITION , STATED I AM A OK, EXPLAINED OF BENEFITS OR REPOSITION STILL REFUSE ,WILL CONT TO ENCOURAGE TO TURN PATIENT
--- NOTE | 2017-12-31 18:16 | NUR ---
WORSTED WINDER NOTE HAVING LUNCH , ABLE TO EAT 50% OF DIET , ALL NEEDS ATTENDED
--- NOTE | 2017-12-31 19:15 | NUR ---
LAND EXAMINER INITIAL NOTE RECEIVED PATIENT RESTING SUPINE IN BED WITH HOB ELEVATED, AOX3, ABLE TO MOUTH WORDS, TRACH TO MECHANICAL VENT ON SETTINGS ORDERED, CONTACT PRECAUTIONS OBSERVED, TELE SR 90, F/C DRAINING TO GRAVITY YELLOW URINE, GT CLAMPED PATIENT REFUSED FEEDING WHEN ASKED, REINFORCED NEED, NEEDS REINFORCEMENT, PT STATES ATE DINNER, SKIN IS CLEAN AND DRY, WOUNDS ARE COVERED, AND DRY. LEFT WRIST #22G WITH NS AT 75ML/HR. SAFETY MAINTAINED AT ALL TIMES BED IN LOW LOCKED POSITION, WILL CONTINUE TO MONITOR FOR ANY CHANGES IN CONDITION.
[2017-12-31] MEDS: ACETAMINOPHEN 650 MG/20.3 ML UDC GT PRN (22:07)
--- NOTE | 2017-12-31 22:12 | NUR ---
STOCK PULLER NOTE PT T 100.3 GIVEN TYLENOL 650MG VIA GT. WILL CONTINUE TO MONITOR.
--- NOTE | 2017-12-31 23:38 | NUR ---
PRODUCE WRAPPER NOTES CALL TO JAKUB HOWARD NP FOR PRN ORDER OF MOM DUE TO CONSTIPATION. NEW ORDERS ADDED.
[2017-12-31] MEDS: MAGNESIUM HYDROXIDE 30 ML UDC PO PRN (23:56)
[2017-12-31] MEDS: IBUPROFEN 400 MG TABLET GT PRN (23:57)
--- NOTE | 2017-12-31 23:58 | NUR ---
SOLE RUFFER NOTE PATIENT T 101.8 GIVEN PRN MOTRIN 400MG VIA GT, WILL CONTINUE TO MONITOR, COOLING MEASURES IN PLACE.
[2018-01-01] VITALS: BP 103/60
[2018-01-01] MEDS: IPRATROPIUM NEB FS 0.5 MG/2.5 ML AMPUL.NEB NEB SCH ×7 (00:18→23:36)
[2018-01-01] MEDS: MORPHINE SULFATE INJ 4 MG/ML DISP.SYRIN IV PRN ×5 (00:44→21:01)
[2018-01-01] MEDS: IV NS 0.9% 1,000 ML IV PRN ×2 (02:41→20:19)
[2018-01-01 04:00] VITALS: BP 107/70
--- NOTE | 2018-01-01 05:14 | NUR ---
PT SILVIA'D ON MECHANICAL VENT. TREATMENTS GIVEN T/O SHIFT AND NO ADVERSE REACTION NOTED. PT SUCTIONED T/O SHIFT. PT TRACH PATENT AND SECURE. AMBU BAG AT BEDSIDE. VENT PLUGGED INTO RED OUTLET. ALARMS ARE ON AND AUDIBLE. Addendum: 01/01/18 at 0515 by KEN WRIGHT RT Amended: Links added.
[2018-01-01 06:27] LABS: BASOPHILS % (AUTO) 0.5 % (0.0-2.0); EOSINOPHILS % (AUTO) 1.6 % (0.0-6.0); HEMATOCRIT 26 % (39-51); HEMOGLOBIN 8.7 g/dL (13.5-17.5); LYMPHOCYTES # (AUTO) 1.8 /CMM (0.8-4.8); LYMPHOCYTES % (AUTO) 18.9 % (20.0-44.0); MEAN CORPUSCULAR HGB CONC 34 g/dl (31.0-36.0); MEAN CORPUSCULAR VOLUME 91 fL (80-96); MONOCYTES # (AUTO) 0.6 /CMM (0.1-1.30); MONOCYTES % (AUTO) 6.8 % (2.0-12.0); NEUTROPHILS # (AUTO) 6.9 /CMM (1.8-8.9); NEUTROPHILS % (AUTO) 72.2 % (43.0-81.0); PLATELET COUNT (AUTO) 482 /CMM (150-450); RDW COEFFICIENT OF VARIATION 13.9 (11.5-15.0); RED BLOOD CELL COUNT(AUTO) 2.84 MIL/uL (4.5-6.0); WHITE BLOOD COUNT (AUTO) 9.5 K/uL (4.3-11.0)
[2018-01-01 06:37] LABS: CREATININE 0.2 mg/dL (0.6-1.3); MAGNESIUM 1.6 mg/dL (1.8-2.4); POTASSIUM 3.4 mmol/L (3.5-5.1)
--- NOTE | 2018-01-01 06:56 | NUR ---
NEWSPAPER MANAGER CLOSING NOTE PATIENT IS RESTING COMFORTABLY IN BED, IN NO ACUTE DISTRESS, WILL ENDORSE TO AM NURSE FOR CONTINUITY OF CARE.
--- NOTE | 2018-01-01 07:00 | NUR ---
RN NOTE RECEIVED PATIENT ON BED, AOX3, ABLE TO MOUTH WORDS,VENT/ TRACH DEPENDENT , TOLERATING CURRENT VENT SETTING WELL, NO DISTRESS NOTED, ON TELE SR, HR IN 80'S , CONTACT PRECAUTIONS OBSERVED, F/C DRAINING TO GRAVITY WITH YELLOW URINE, GT CLAMPED , PT REFUSED TF AT THIS TIME, SKIN IS CLEAN AND DRY, WOUNDS ARE COVERED, AND DRY. L WRIST IV SITE G 22 AND R WRIST IV SITE G 20 CDI, NS AT 75ML/HR RUNNING VIA L WRIST IV SITED, SAFETY MAINTAINED AT ALL TIMES, BED LOCKED AND IN L WRIST POSITION , WILL CONTINUE TO MONITOR PT CLSOELY.
[2018-01-01] MEDS: ALBUTEROL FS 2.5 MG/0.5 ML VIAL.NEB NEB SCH ×4 (07:15→20:46)
[2018-01-01 08:00] VITALS: BP 128/81
[2018-01-01] MEDS: LEVETIRACETAM SOL (5 ML) 100 MG/ML UDC GT SCH ×2 (08:57→20:18)
[2018-01-01] MEDS: TRAMADOL HCL 50 MG TABLET GT SCH ×2 (08:57→17:15)
[2018-01-01] MEDS: COLISTIMETHATE SODIUM 75 MG in IV NS 0.9% 50 ML IV SCH ×2 (08:57→20:19)
[2018-01-01] MEDS: LINEZOLID 600 MG TABLET PO SCH ×2 (08:58→20:18)
[2018-01-01] MEDS: GABAPENTIN 100 MG CAPSULE GT SCH ×3 (08:58→17:14)
[2018-01-01] MEDS: LACTOBACILLUS RHAMNOSUS GG 1 EACH CAP.SPRINK GT SCH ×2 (08:58→17:14)
[2018-01-01] MEDS: DOCUSATE SODIUM LIQ 100 MG/10 ML UDC GT SCH ×2 (08:58→17:15)
[2018-01-01] MEDS: IBUPROFEN 400 MG TABLET GT PRN (08:58)
[2018-01-01] MEDS: DAKINS QUARTER STRENGTH (0.125%) 480 ML BOTTLE TOP SCH ×2 (08:59→20:19)
--- NOTE | 2018-01-01 10:00 | NUR ---
RN NOTES PT REFUSED BREAKFAST AND REFUSED TO HAVE TF STARTED, PT EDUCATED REGARDING HOW IMPORTANT IT IS TO FOLLOW THE PLAN OF CARE AND THE RISKS OF NOT HAVING ENOUGH INTAKE , BUT PT STILL REFUSED TO EAT . PT ALSO REFUSED TO BE TURNE SIDE TO SIDE , PT STATED WANTS TO STAY ON HIS BACK AT ALL TIMES .
[2018-01-01] MEDS: Magnesium 1GM/D5W 100ML PREMIX 100 ML IV SCH ×2 (10:16→11:37)
[2018-01-01] MEDS: MAGNESIUM HYDROXIDE 30 ML UDC PO PRN (10:16)
[2018-01-01] MEDS ORDERED: POTASSIUM CHLORIDE 20 MEQ POWDER PACKET NG SCH (10:30)
[2018-01-01 12:00] VITALS: BP 105/70
[2018-01-01 16:00] VITALS: BP_SYST 92; BP_SYST 98; BP_DIAS 58; BP_DIAS 59
[2018-01-01] MEDS: MIRTAZAPINE 15 MG TABLET PO SCH (17:14)
--- NOTE | 2018-01-01 17:42 | NUR ---
NO VENT CHANGES MADE. Addendum: 01/01/18 at 1742 by BLADIMIR GREWAL RT Amended: Links added.
--- NOTE | 2018-01-01 18:23 | NUR ---
RN NOTES FACE SHEET FACED TO [facility] FOR PSCHY EVAL.
--- NOTE | 2018-01-01 18:38 | NUR ---
RN NOTES SUPPORTIVE FAMILY AT THE BEDSIDE , PT REMAINS THE SAME, TOLERATING CURRENT VENT SETTING WELL, STILL REFUSING TO TURN, SR UPx3, CALL LIGHT WITHIN EASY REACH, WILL ENDOSE TO TUBE BACKER NURSE FOR KEREN
--- NOTE | 2018-01-01 19:35 | NUR ---
HAMMER ADJUSTER INITIAL NOTE REPORT WAS RECEIVED. PT IS IN BED RESTING, ABLE TO MOUTH WORDS ON VENT/TRACH. ON TELE MONITOR SHOWING SR 88. G-TUBE IS CLAMPED. PT IS REFUSING FEEDING, ON A REGULAR DIET. IV ACCESS IS INTACT AND PATENT WITH NS AT 74 ML/HR. GILBERT CATH IS INTACT AND DRAINING. ENDORSED TO ME THAT PT HAS BEEN REFUSING REPOSITIONING AND WOUND CARE, WILL ATTEMPT AGAIN DURING MY SHIFT. BED IS IN LOW AND LOCKED POSITION, CALL LIGHT WITHIN REACH. WILL CONTINUE TO MONITOR PT
[2018-01-01 20:00] VITALS: BP_SYST 115; BP_SYST 97; BP_DIAS 54; BP_DIAS 72
[2018-01-01] MEDS: METRONIDAZOLE 500 MG TABLET PO SCH (20:18)
[2018-01-01] MEDS: ACETAMINOPHEN 650 MG/20.3 ML UDC GT PRN (20:54)
[2018-01-02] VITALS: BP_SYST 111; BP_SYST 90; BP_DIAS 51; BP_DIAS 64
--- NOTE | 2018-01-02 00:04 | NUR ---
DESIGN ENGINEERING SPECIALIST NOTE PT IN STABLE CONDITION, CONTINUE TO REFUSE REPOSITIONING, AND WOUND CARE. ENDORSED TO CHESTER ZHANG KEREN.
[2018-01-02] MEDS: MORPHINE SULFATE INJ 4 MG/ML DISP.SYRIN IV PRN ×5 (02:05→21:50)
[2018-01-02] MEDS: IPRATROPIUM NEB FS 0.5 MG/2.5 ML AMPUL.NEB NEB SCH ×6 (03:43→23:40)
[2018-01-02 04:00] VITALS: BP 105/64
[2018-01-02] MEDS: METRONIDAZOLE 500 MG TABLET PO SCH ×3 (05:16→20:02)
--- NOTE | 2018-01-02 06:25 | NUR ---
LAND SURVEYOR NOTE PATIENT STABLE. CONTINUES TO REFUSE WOUND CARE. ADMINISTERED 2MG MORPHINE IV FOR 8/10 PAIN. WILL ENDORSE TO DAY SHIFT FOR KEREN.
[2018-01-02 07:04] LABS: CALCIUM, SERUM 8.7 mg/dL (8.5-10.1); CREATININE 0.3 mg/dL (0.6-1.3); MAGNESIUM 1.7 mg/dL (1.8-2.4); POTASSIUM 3.8 mmol/L (3.5-5.1)
--- NOTE | 2018-01-02 07:05 | NUR ---
RN NOTE RECEIVED PT ON BED, A/Ox3, MOUTH WORDS , ABLE TO MAKE NEEDS KNOWN, VENT/ TRACH DEPENDENT, ON TELE SR HR IN 90'S , GILBERT DRAINING TO GRAVITY , GT CLAMPED AT THIS TIME, PT REFUSES TF , ON REGULAR DIET , L WRIST IV SITE G 22 AND R WRIST IV SITE G 20 CDI, IVF NS AT 75CC/HR RUNNING VIA L WRIST IV , SR UP x3, BED LOCKED AND IN LOWEST POSITION , CALL LIGHT WITHIN REACH. WILL CONTINUE TO MONITOR PT.
[2018-01-02] MEDS: ALBUTEROL FS 2.5 MG/0.5 ML VIAL.NEB NEB SCH ×4 (07:40→19:17)
[2018-01-02 07:49] LABS: BASOPHILS % (AUTO) 0.4 % (0.0-2.0); HEMATOCRIT 25 % (39-51); HEMOGLOBIN 8.4 g/dL (13.5-17.5); LYMPHOCYTES % (AUTO) 9.8 % (20.0-44.0); MEAN CORPUSCULAR HGB CONC 33 g/dl (31.0-36.0); MEAN CORPUSCULAR VOLUME 92 fL (80-96); MONOCYTES # (AUTO) 0.6 /CMM (0.1-1.30); MONOCYTES % (AUTO) 5.3 % (2.0-12.0); NEUTROPHILS # (AUTO) 8.7 /CMM (1.8-8.9); NEUTROPHILS % (AUTO) 82.5 % (43.0-81.0); PLATELET COUNT (AUTO) 479 /CMM (150-450); RDW COEFFICIENT OF VARIATION 13.8 (11.5-15.0); RED BLOOD CELL COUNT(AUTO) 2.74 MIL/uL (4.5-6.0); WHITE BLOOD COUNT (AUTO) 10.5 K/uL (4.3-11.0)
[2018-01-02 08:00] VITALS: BP 111/75
[2018-01-02] MEDS: LINEZOLID 600 MG TABLET PO SCH ×2 (08:40→20:02)
[2018-01-02] MEDS: LACTOBACILLUS RHAMNOSUS GG 1 EACH CAP.SPRINK GT SCH ×2 (08:40→17:04)
[2018-01-02] MEDS: TRAMADOL HCL 50 MG TABLET GT SCH ×2 (08:40→17:04)
[2018-01-02] MEDS: DOCUSATE SODIUM LIQ 100 MG/10 ML UDC GT SCH ×2 (08:40→17:04)
[2018-01-02] MEDS: GABAPENTIN 100 MG CAPSULE GT SCH ×3 (08:40→17:04)
[2018-01-02] MEDS: LEVETIRACETAM SOL (5 ML) 100 MG/ML UDC GT SCH ×2 (08:40→20:02)
[2018-01-02] MEDS: IV NS 0.9% 1,000 ML IV PRN (09:37)
[2018-01-02] MEDS: DAKINS QUARTER STRENGTH (0.125%) 480 ML BOTTLE TOP SCH ×2 (09:38→20:11)
[2018-01-02] MEDS: COLISTIMETHATE SODIUM 75 MG in IV NS 0.9% 50 ML IV SCH ×2 (11:33→20:02)
[2018-01-02] MEDS: Magnesium 1GM/D5W 100ML PREMIX 100 ML IV SCH ×2 (11:33→12:52)
[2018-01-02 12:00] VITALS: BP 122/79
--- NOTE | 2018-01-02 12:00 | NUR ---
RN NOTES PT REFUSED TO TURNED, SUPPORTIVE FAMILY AT THE BEDSIDE, CONTINUE TO MONITOR .
[2018-01-02 16:00] VITALS: BP 104/58
[2018-01-02] MEDS: MIRTAZAPINE 15 MG TABLET PO SCH (17:04)
--- NOTE | 2018-01-02 18:34 | NUR ---
RN NOTES VSS STABLE, TOLERATING CURRENT VENT SETTING WELL ,NS AT 75CC.HR RUNNING VIA L WRIST IV SITE , SR UP x3, CALL LIGHT WITHIN EASY REACH, BED LOCKED AND IN LOWEST POSITION , WILL ENDORSE TO TECH ED TEACHER NURSE FOR KEREN.
[2018-01-02 20:00] VITALS: BP 97/54
[2018-01-02] MEDS: ACETAMINOPHEN 650 MG/20.3 ML UDC GT PRN (20:02)
[2018-01-02] MEDS ORDERED: MORPHINE SULFATE INJ 4 MG/ML DISP.SYRIN ONE (21:40)
--- NOTE | 2018-01-02 23:13 | NUR ---
SOFTWARE SYSTEMS ARCHITECT NOTES GAVE REPORT AND PATIENT TO MARK RN
[2018-01-02] MEDS: MAGNESIUM HYDROXIDE 30 ML UDC PO PRN (23:25)
--- NOTE | 2018-01-02 23:39 | NUR ---
DEGREASING SOLUTION RECLAIMER NOTES RECEIVED PT IN BED LERT, AWAKE, RESPONSIVE. TRACH PATENT , NO RESPIRATORY DISTRESS N9TED. VENT DEPENDENT DENIES ANY PAIN OR DISCOMFORT T THIS TIME IV SITE LT WRIST,INTACT, PATENT. CALL LIGHT WITHIN REACH. KEPT CLEANI AND COMFORTABLE .ATTENDED ALL NEEDS, WILL CONTINUE TO MONITOR ACCORDINGLY.
[2018-01-03] VITALS: BP 98/64
[2018-01-03] MEDS: IV NS 0.9% 1,000 ML IV PRN (01:46)
[2018-01-03] MEDS: ACETAMINOPHEN 325 MG TABLET PO PRN (03:30)
[2018-01-03] MEDS: IPRATROPIUM NEB FS 0.5 MG/2.5 ML AMPUL.NEB NEB SCH ×4 (03:40→16:30)
[2018-01-03 04:00] VITALS: BP 130/63
--- NOTE | 2018-01-03 04:00 | NUR ---
ACADEMIC INTERN NOTE PT DID NOT HAVE BMX4 DAYS MOM 30ML GIVEN , NOT EFFECTIVE, PT REQUESTING SUPPOSITORY, PAGED DR GAN, AWAITING TO CALL BACK. WILL CONTINUE TO MONITOR.
[2018-01-03 04:06] VITALS: BP 130/63
[2018-01-03] MEDS ORDERED: MORPHINE SULFATE INJ 4 MG/ML DISP.SYRIN ONE (04:59)
[2018-01-03] MEDS: MORPHINE SULFATE INJ 4 MG/ML DISP.SYRIN IV PRN (05:04)
[2018-01-03] MEDS: METRONIDAZOLE 500 MG TABLET PO SCH ×2 (06:02→12:39)
--- NOTE | 2018-01-03 06:07 | NUR ---
TOWER DIRECTOR NOTE DR GAN CALLED BACK WITH NEW ORDER FOR BISACODYL 10MG SUPP PRN ORDER NOTED AND CARRIED OUT. MEDICATION ADMINISTERED ORDERED.WILL CONTINUE TO MONITOR.
[2018-01-03] MEDS ORDERED: BISACODYL SUPP (10 MG) 10 MG/SUPP.RECT SUPP.RECT RC PRN (06:30)
--- NOTE | 2018-01-03 06:55 | NUR ---
SHINGLE TRIMMER CLOSING NOTES PT IN BED ALERT, AWAKE, VERBALLY RESPONSIVE, VENT DEPENDENT. TRACH PATENT, NO RESPIRATORY DISTRESS NOTED. GT IN PLACE, 2 ML RESIDUAL NOTED. DENIES ANY PAIN OR DISCOMFORT AT THIS TIME. F/C IN PLACE DRAINING YELLOW COLOR URINE. KEPT CLEAN AND COMFORTABLE, ATTENDED ALL NEEDS. WILL ENDORSE TO DAY SHIFT FOR CONTINUITY OF CARE.
[2018-01-03] MEDS: ALBUTEROL FS 2.5 MG/0.5 ML VIAL.NEB NEB SCH ×3 (07:35→16:30)
--- NOTE | 2018-01-03 07:50 | NUR ---
RN NOTE RECEIVED PATIENT IN BED AWAKE WATCHING TV. HE IS ABLE TO MOUTH WORDS, CURRENTLY ON VENT/TRACH WITH APPROPRIATE SETTINGS. ON RESTAURANT SUPERVISOR ON SR HR OF 96. GT SITE INTACT AND PATENT WITH NO RESIDUALS NOTED. PATIENT ABLE TO TOLERATED REGULAR FOOD. IV ACCESS IS INTACT AND PATENT WITH NO S/SX OF INFILTRATION NOTED. F/C INTACT AND PATENT WITH ADEQUATE FLOW OF URINE. BED IS IN LOW AND LOCKED POSITION, PLACED CALL LIGHT WITHIN REACH. WILL CONTINUE TO MONITOR WITH CONTINUITY OF CARE.
[2018-01-03 08:00] VITALS: BP_SYST 102; BP_SYST 117; BP_DIAS 56; BP_DIAS 58
[2018-01-03] MEDS: LACTOBACILLUS RHAMNOSUS GG 1 EACH CAP.SPRINK GT SCH (08:09)
[2018-01-03] MEDS: COLISTIMETHATE SODIUM 75 MG in IV NS 0.9% 50 ML IV SCH (08:09)
[2018-01-03] MEDS: ACETAMINOPHEN 650 MG/20.3 ML UDC GT PRN (08:09)
[2018-01-03] MEDS: LEVETIRACETAM SOL (5 ML) 100 MG/ML UDC GT SCH (08:09)
[2018-01-03] MEDS: GABAPENTIN 100 MG CAPSULE GT SCH ×2 (08:10→12:39)
[2018-01-03] MEDS: LINEZOLID 600 MG TABLET PO SCH (08:10)
[2018-01-03] MEDS: TRAMADOL HCL 50 MG TABLET GT SCH (08:10)
[2018-01-03] MEDS: DOCUSATE SODIUM LIQ 100 MG/10 ML UDC GT SCH (08:10)
[2018-01-03] MEDS: DAKINS QUARTER STRENGTH (0.125%) 480 ML BOTTLE TOP SCH (08:13)
[2018-01-03 09:32] LABS: CALCIUM, SERUM 7.3 mg/dL (8.5-10.1); CREATININE 0.3 mg/dL (0.6-1.3); MAGNESIUM 1.7 mg/dL (1.8-2.4); POTASSIUM 3.4 mmol/L (3.5-5.1)
[2018-01-03] MEDS: FENTANYL PF 100MCG/2ML AMPUL IV PRN ×2 (10:28→16:16)
[2018-01-03 12:00] VITALS: BP 90/56
--- NOTE | 2018-01-03 14:11 | NUR ---
RN NOTE PATIENT WILL BE DISCHARGE TO [facility] VIA AMBULANCE AT 1600. DR KEEGAN CARROLL INSERTED A MIDLINE ON PATIENT TO CONTINUE IV ANTIBIOTIC THERAPY AT THE FACILITY. REPORT WAS GIVEN TO VINCE AT [facility].
[2018-01-03 16:00] VITALS: BP 108/70
--- NOTE | 2018-01-03 16:20 | NUR ---
RN NOTE 27 YEAR OLD MALE DISCHARGED TO [facility] IN STABLE CONDITION. COMPLIANT WITH MEDICATIONS, COOPERATIVE WITH TREATMENT PLANS. MEDICAL TREATMENT PLANS DEFERRED FOR CONTINUAL MONITORING. LEFT UPPER ARM MIDLINE WAS INSERTED AND IN INTACT AND PATENT. REMOVED RIGHT HAND IV SITE WITH NO S/SX OF BLEEDING, CATHETER INTACT. EDUCATED PATIENT ABOUT AFTER CARE PLAN AND COPIES PROVIDED. RETURNED PERSONAL BELONGINGS TO PATIENT AND SIGNIFICANT OTHER. MEDICATIONS WAS RECONCILED, REPORT GIVEN TO VINCE/SAMIR AT THE [facility]. PATIENT SIGNIFICANT OTHER SIGNED DISCHARGE PAPERWORK. WOUND PICTURES TAKEN AND DOCUMENTED IN CHART. PATIENT LEFT THE UNIT AT 1620 VIA AMBULANCE.
--- NOTE | 2018-01-03 16:33 | NUR ---
RT NOTE PATIENT DISCHARGED, NO TX GIVEN. NO SOB NOTED T/O SHIFT. TRACH SECURED AND PATENT AT ALL TIMES. MONITORED CLOSELY.
--- NOTE | 2018-01-03 16:37 | NUR ---
PATIENT RECEIVED TRACHED ON MECHANICAL VENTILATION. AMBU BAG @ HOB. SUCTION DONE T/O SHIFT, MODERATE THICK WHITE YELLOW SECRETIONS NOTED. ALARMS ON AND AUDIBLE. VENT PLUGGED INTO RED OUTLET. NO SOB NOTED T/O SHIFT. MONITORED CLOSELY. PATIENT DISCHARGED @ 1630. Addendum: 01/03/18 at 1639 by TEO CHADWICK RT Amended: Links added.
[2018-01-04] MEDS ORDERED: ONDANSETRON HCL/PF 4 MG/2 ML VIAL ONE (09:10)
[2018-01-19] MEDS ORDERED: LIDO30AD10 TP (11:23)
[2018-01-23] MEDS ORDERED: OXYC5CAP18 PO (13:20)
[2018-01-23] MEDS ORDERED: VANC750F2 IV (13:20)
[2018-03-27] MEDS ORDERED: IPRA3AMP23 IH ×2 (11:44)
== END 2018-01-03 16:56 | DRG 710 ==
LOC: ER 19:56 → TELE1 22:52
PROVIDERS: ADMIT Nurse Practitioner Acute Care; ATTEND Nurse Practitioner Acute Care
DX: A41.9 Sepsis, unspecified organism (principal); J18.9 Pneumonia, unspecified organism; G82.50 Quadriplegia, unspecified; E43 Unspecified severe protein-calorie malnutrition; L89.154 Pressure ulcer of sacral region, stage 4; L89.014 Pressure ulcer of right elbow, stage 4; L89.314 Pressure ulcer of right buttock, stage 4; L89.894 Pressure ulcer of other site, stage 4; Z99.11 Dependence on respirator [ventilator] status; J96.11 Chronic respiratory failure with hypoxia; F32.2 Major depressive disorder, single episode, severe without psychotic features; Z93.0 Tracheostomy status; R13.10 Dysphagia, unspecified; N39.0 Urinary tract infection, site not specified; D63.8 Anemia in other chronic diseases classified elsewhere; F32.9 Major depressive disorder, single episode, unspecified; G40.909 Epilepsy, unspecified, not intractable, without status epilepticus; W34.00XS Accidental discharge from unspecified firearms or gun, sequela; Z93.1 Gastrostomy status; E87.1 Hypo-osmolality and hyponatremia; K59.00 Constipation, unspecified; N49.2 Inflammatory disorders of scrotum; E83.42 Hypomagnesemia; E87.6 Hypokalemia; B95.62 Methicillin resistant Staphylococcus aureus infection as the cause of diseases classified elsewhere; B96.1 Klebsiella pneumoniae [K. pneumoniae] as the cause of diseases classified elsewhere; B96.5 Pseudomonas (aeruginosa) (mallei) (pseudomallei) as the cause of diseases classified elsewhere; B96.89 Other specified bacterial agents as the cause of diseases classified elsewhere; K76.0 Fatty (change of) liver, not elsewhere classified; G89.29 Other chronic pain
CPT/HCPCS: 31720; 36415; 71045-TC; 76700-TC; 76870-TC; 80048-TC; 80053-TC; 80061-TC; 80076-TC; 80202-TC; 81000-TC; 83605-TC; 83735-TC; 84100-TC; 84134-TC; 84443-TC; 84484-TC; 85025-TC; 85730-TC; 87040-TC; 87070-TC; 87081-TC; 87086-TC; 87186-TC; 92526; 92611-TC; 94002-TC; 94003-TC; 94760-TC; 99082-TC; A4216; A4606; A4623; A6248; A6253; A6402; A6403; A7526; J0692; J0770; J1953; J2185; J2270; J2405; J3010; J3370; J3475; J3490; J7030; J7040; J7050; J7060; Z7610

== ENCOUNTER 2018-01-15 21:15 | Inpatient (IN) | payer OTHER ==
[~2018-01-15] VITALS: Ht 177.8 cm; Wt 69.4 kg
[~2018-01-15 21:15] MED LIST: ACET-868 GT; ALBU2.5V13 NEB; DOCU-141 GT; GABA-532 PO; HYDR-552 PO; IBUP-1953 PO; LACT1CAP61 PO; LEVE500T9 PO; MAGN400O21 PO; MIRT15TA PO; MULT1TAB73 GT; TRAM50TA2 GT
--- NOTE | 2018-01-15 21:30 | NUR ---
PT BBPA FROM SNF D/T "LOW H&H; 6.3 & 21.2"" . PT IS AAOX3. PT IS TRACHED AND VENTED. VENT SETTING ARE FOLLOWS: AC 14, 500, 40%, PEEP 5. PT NOTED TO HAVE IV ACCESS ON VAISHNAVI AND PATENT. G-TUBE IN PLACE. SKIN BREAKDOWNS NOTED ON THE ISABEL, BUTTOCKS/SACRAL AREA, AND BILATERAL FEET. RESP EVEN AND UNLABORED. SKIN WARM AND DRY TO TOUCH. NO S/S OF DISTRESS NOTED IN PT. PT SAFETY AND COMFORT MEASURES IN PLACE. AWAITING MD FOR EVAL.
--- NOTE | 2018-01-15 21:40 | NUR ---
PT REC'D TRACHED [place] 8 VIA [facility] VENT SETTINGS GIVEN FROM TRANSPORT RT. NO RESP DISTRESS NOTED. PT REFUSED SX. VENT PLUGGED INTO RED OUTLET. ALARMS ARE SET AND AUDIBLE. AMBU BAG BEDSIDE. WILL CONTINUE TO MONITOR. Addendum: 01/15/18 at 2219 by PUNEET GROVES RT Amended: Links added.
[2018-01-15 21:50] LABS: BASOPHILS # (AUTO) 0.1 /CMM (0.0-0.2); BASOPHILS % (AUTO) 0.4 % (0.0-2.0); EOSINOPHILS % (AUTO) 1.9 % (0.0-6.0); HEMATOCRIT 22 % (39-51); HEMOGLOBIN 7.3 g/dL (13.5-17.5); LYMPHOCYTES # (AUTO) 1.2 /CMM (0.8-4.8); LYMPHOCYTES % (AUTO) 8.5 % (20.0-44.0); MEAN CORPUSCULAR HGB CONC 33 g/dl (31.0-36.0); MEAN CORPUSCULAR VOLUME 88 fL (80-96); MONOCYTES # (AUTO) 0.7 /CMM (0.1-1.30); NEUTROPHILS # (AUTO) 12.3 /CMM (1.8-8.9); NEUTROPHILS % (AUTO) 84.2 % (43.0-81.0); PLATELET COUNT (AUTO) 439 /CMM (150-450); RDW COEFFICIENT OF VARIATION 14.6 (11.5-15.0); RED BLOOD CELL COUNT(AUTO) 2.49 MIL/uL (4.5-6.0); WHITE BLOOD COUNT (AUTO) 14.6 K/uL (4.3-11.0)
[2018-01-15] MEDS ORDERED: IV NS 0.9% 1,000 ML BAG IV ONE ×2 (22:00)
[2018-01-15] MEDS ORDERED: ONDANSETRON HCL/PF 4 MG/2 ML VIAL ONE (22:08)
[2018-01-15] MEDS ORDERED: MORPHINE SULFATE INJ 4 MG/ML DISP.SYRIN ONE (22:08)
[2018-01-15 22:09] LABS: INR 1.14 (0.87-1.13)
[2018-01-15 22:22] LABS: CALCIUM, SERUM 8.4 mg/dL (8.5-10.1); CREATININE 0.4 mg/dL (0.6-1.3); POTASSIUM 4.1 mmol/L (3.5-5.1)
[2018-01-15 22:28] LABS: BILIRUBIN,DIRECT 0.1 mg/dL (0.0-0.2); BILIRUBIN,TOTAL 0.2 mg/dL (0.2-1.0); TOTAL PROTEIN, SERUM 6.5 g/dL (6.4-8.2)
[2018-01-15 22:30] LABS: ALBUMIN 1.4 g/dL (3.4-5.0)
[2018-01-15] MEDS ORDERED: MORPHINE SULFATE INJ 2 MG/ML DISP.SYRIN IV ONE (22:30)
[2018-01-15] MEDS ORDERED: ONDANSETRON HCL/PF 4 MG/2 ML VIAL IV ONE (22:30)
[2018-01-16] VITALS (8 sets, daily range): BP systolic 83–118; BP diastolic 48–73
--- NOTE | 2018-01-16 00:50 | NUR ---
REPORT GIVEN TO TIAN WALTER FOR KEREN
--- NOTE | 2018-01-16 00:56 | NUR ---
Patient is resting comfortably in bed with eyes closed. Easily aroused. VSS
[2018-01-16] MEDS ORDERED: CEFEPIME 2 GM in IV D5W 100 ML IV SCH (01:00)
[2018-01-16] MEDS ORDERED: MAG HYDROX/AL HYDROX/SIMETH 30 ML UDC PO PRN (01:00)
[2018-01-16] MEDS ORDERED: ONDANSETRON HCL/PF 4 MG/2 ML VIAL IVP PRN (01:00)
[2018-01-16] MEDS ORDERED: ZOLPIDEM TARTRATE 5 MG TABLET PO PRN (01:00)
--- NOTE | 2018-01-16 01:07 | NUR ---
TIAN 103
[2018-01-16] MEDS ORDERED: VANCOMYCIN 1 GM in IV NS 0.9% 250 ML IV ONE (02:00)
--- NOTE | 2018-01-16 02:00 | NUR ---
RN TIAN ADMISSION NOTES, RECEIVED 27 YEAR OLD MALE FROM ER DEPARTMENT, ON MECHANICAL VENTILATOR, NO SOB/ACUTE DISTRESS AT THIS TIME, ABLE TO MOUHT WORDS AND LET NEEDS KNOWN, UNDER THE MEDICAL CARE OF DR GONZALEZ, WITH ADMITTING DX OF PNA, ANEMIA, H/O EPILEPSIA,GT IN PLACE, PARAPLEGIC, SACRAL WOUND AND BLE WOUNDS, VAISHNAVI MIDLINE INTACT AND PATENT, WILL ADMINISTER MEDICATION ORDER AND CONTINUE MONITORING CLOSELY.
[2018-01-16] MEDS ORDERED: VANCOMYCIN 1 GM VIAL ONE (02:50)
[2018-01-16] MEDS ORDERED: CEFEPIME 1 GM VIAL ONE (02:54)
[2018-01-16] MEDS: IV NS 0.9% 1,000 ML IV PRN ×2 (03:08→13:30)
[2018-01-16] MEDS: HYDROCODONE/APAP 5/325MG 1 EACH TABLET PO PRN ×4 (03:13→20:12)
[2018-01-16 03:14] LABS: APPEARANCE,URINE CLEAR (CLEAR); BILIRUBIN,URINE NEGATIVE (NEGATIVE); BLOOD, URINE NEGATIVE Ery/uL (NEGATIVE); COLOR,URINE OTHER (YELLOW); KETONES,URINE NEGATIVE (NEGATIVE); LEUKOCYTE ESTERASE ,URINE 1+ (NEGATIVE); NITRITE, URINE POSITIVE (NEGATIVE); PROTEIN,URINE NEGATIVE (NEGATIVE); UGLUCOSE NEGATIVE (NEGATIVE); UROBILINOGEN,URINE 0.2 EU/dL (0.2)
[2018-01-16 03:41] LABS: CALCIUM OXALATE CRYSTALS,UR Few /HPF (None Seen); RBC,URINE NONE SEEN /HPF (0-2); SQUAMOUS EPITHELIAL CELL,UR Rare /HPF (None Seen); WBC,URINE 0-2 /HPF (0-3)
[2018-01-16 03:42] LABS: BACTERIA,URINE Few /HPF (None Seen)
[2018-01-16] MEDS: PANTOPRAZOLE 40 MG VIAL IV SCH ×2 (04:31→08:18)
[2018-01-16] MEDS: ACETAMINOPHEN 325 MG TABLET PO PRN ×2 (05:19→21:01)
--- NOTE | 2018-01-16 06:40 | NUR ---
RN CLOSING NOTES, PATIENT SLEEPING IN BED, BUT EASILY AROUSABLE, ON MECHANICAL VENTILATOR, NO SOB/ACUTE DISTRESS NOTED AT THIS TIME, AND NO SIGNIFICANT CHANGE OF CONDITION DURING THIS SHIFT, ALL NEEDS PROVIDED, DRY AND CLEAN, ABD WELL REPOSITIONED, CALL LIGHT W/I REACH, WILL ENDORSE CONTINUITY OF CARE TO ONCOMING NURSE.
--- NOTE | 2018-01-16 07:10 | NUR ---
RN INITIAL NOTES: Rec'd pt asleep on bed, easily arousable, mouths words, c/o severe shoulder/neck pain 10/10, A/O x3. On MV via trach, sating at 100%. On telemonitor, SR w/ HR 64. Has VAISHNAVI midline, PL, patent & intact w/ NS x 125 cc/hr infusing well. Has FC patent & intact draining to yellowish urine output. Has GT, clamped at this time. Provided comfort & safety measures. Bed kept low & in locked pos. Call light placed w/in reach. Will continue to monitor and attend pt needs.
--- NOTE | 2018-01-16 07:43 | NUR ---
Received male garcia pt on mechanical vent. Pt garcia is secure. Vent is plugged into a red outlet, alarms are set and audible, and BVM is at bedside. Addendum: 01/16/18 at 0745 by MADAN HA RT Amended: Links added.
--- NOTE | 2018-01-16 08:00 | NUR ---
RN NOTES: Pt refused to be turned & repositioned. Risk & benefits explained but still strongly refused despite PRN medications given prior to doing ADLs.
[2018-01-16] MEDS: Z GUARD REMEDY 2 OZ OINT TP PRN (08:18)
[2018-01-16] MEDS ORDERED: FEE PK DOSING 1 MIN EA MC ONE (10:12)
[2018-01-16] MEDS: CEFEPIME 2 GM in IV D5W 100 ML IV SCH ×2 (10:12→18:06)
--- NOTE | 2018-01-16 10:30 | NUR ---
RN NOTES: Notified CARMINA Vega re: wound consult. Per GEOTHERMAL POWERPLANT MECHANIC, she will put the orders. GEOTHERMAL POWERPLANT MECHANIC aware re: pt's refusal to be turned.
[2018-01-16] MEDS: VANCOMYCIN 1 GM in IV D5W 250 ML IV SCH ×2 (10:48→18:45)
[2018-01-16] MEDS: ENSURE ENLIVE CHOC 237 ML CAN PO SCH ×2 (12:00→16:05)
--- NOTE | 2018-01-16 13:00 | NUR ---
RN NOTES: Pt seen & examined by CARMINA Abdi w/ orders made & carried out.
[2018-01-16] MEDS: HYDROGEL DRESSING 90 GM TUBE TP SCH (14:59)
--- NOTE | 2018-01-16 15:35 | NUR ---
Patient is trach/vent dependent, he resides at [facility] [phone]. Totally dependent with adl's. Current plan is to dc back to SNF/[facility] once discharge. Addendum: 01/16/18 at 1536 by TAMELA ARELLANO RN Amended: Links added.
[2018-01-16] MEDS: ACETYLCYSTEINE 10% SOLN 400 MG/4 ML VIAL NEB SCH ×2 (15:45→23:30)
[2018-01-16] MEDS: GABAPENTIN 100 MG CAPSULE PO SCH (16:02)
[2018-01-16] MEDS: TRAMADOL HCL 50 MG TABLET PO SCH (16:02)
[2018-01-16] MEDS: DOCUSATE SODIUM 100 MG CAPSULE PO SCH (16:03)
--- NOTE | 2018-01-16 16:30 | NUR ---
RN NOTES: Offered bed bath & wound care as well as putting KCI mattress. Pt strongly refused despite of pain medication given. Mother at bedside. Risk & benefits explained.
[2018-01-16] MEDS: MIRTAZAPINE 15 MG TABLET PO SCH (18:06)
[2018-01-16] MEDS: FENTANYL PF 100MCG/2ML AMPUL IV PRN (18:07)
--- NOTE | 2018-01-16 19:00 | NUR ---
RN CLOSING NOTES: No acute changes noted w/in shift. Pt still c/o pain despite of pain medications given. Pt tolerated MV setting via trach, no SOB. Sputum specimen collected as ordered. On telemonitor, remains SR. VAISHNAVI midline, PL, kept patent & intact w/ NS x 125 cc/hr infusing well. FC kept patent & intact draining to yellowish urine output. GT flushing well for meds. Pt refused to have wound care and bed bath. Mother is aware. Pt kept well rested. Bed kept low & in locked pos. Call light placed w/in reach. Endorsed to PM RN for KEREN.
--- NOTE | 2018-01-16 19:20 | NUR ---
TIAN RN OPENING NOTES RECEIVED REPORT FROM DAYNA Chavarria RN. PATIENT A/A/O X3, ABLE TO MAKE NEEDS KNOWN BY MOUTHING WORDS. BREATHING EVEN & UNLABORED W/ TRACH INTACT & VENT SETTINGS AC 14, TV 500, FIO2 40%, PEEP 5. DENIES SOB OR DIFFICULTY BREATHING. ON TELE W/ SINUS RHYTHM, HR 92. LEFT UPPER ARM MIDLINE INTACT & PATENT W/ DRESSING CDI & IVF NS @ 125 ML/HR. G-TUBE FLUSHING WELL, CLAMPED @ THIS TIME & USED FOR MEDS ONLY. FOELY CATH DRAINING YELLOW URINE. C/O GENERALIZED PAIN OF 7 OUT OF 10 PAIN SCALE. PAIN MED TO BE GIVEN. SAFETY MEASURES MAINTAINED W/ SIDE RAILS UP, BED LOCKED & IN LOWEST POSITION & CALL LIGHT WITHIN REACH. WILL CONTINUE TO MONITOR. FAMILY @ BEDSIDE.
[2018-01-16] MEDS: LEVETIRACETAM SOL (5 ML) 100 MG/ML UDC PO SCH (20:59)
--- NOTE | 2018-01-16 21:30 | NUR ---
TIAN RN NOTES PATIENT C/O BEING IN A LOT OF PAIN DESPITE SEVERAL PAIN MEDS GIVEN & REQUESTING FOR MORPHINE. PER PATIENT, MORPHINE WORKS FOR HIM. MOTHER ALSO INSISTS. EPIC PAINTER MAINTENANCE PAGED & SPOKE TO SREE GUERRERO NP & RECEIVED NEW ORDER FOR MORPHINE 2MG IV ONCE. NEW ORDER CARRIED OUT.
[2018-01-16] MEDS ORDERED: MORPHINE SULFATE INJ 4 MG/ML DISP.SYRIN IV ONE (22:00)
[2018-01-17] VITALS (7 sets, daily range): BP systolic 111–145; BP diastolic 53–73
--- NOTE | 2018-01-17 01:16 | NUR ---
TIAN RN NOTES PATIENT CONTINUES TO REFUSE PATIENT CARE AND TURNING & REPOSITIONING D/T PAIN. WILL OFFER AGAIN.
[2018-01-17] MEDS: CEFEPIME 2 GM in IV D5W 100 ML IV SCH ×3 (02:33→18:15)
[2018-01-17] MEDS: IV NS 0.9% 1,000 ML IV PRN ×2 (02:33→15:29)
[2018-01-17] MEDS: HYDROGEL DRESSING 90 GM TUBE TP SCH ×2 (02:41→15:29)
[2018-01-17] MEDS: VANCOMYCIN 1 GM in IV D5W 250 ML IV SCH ×2 (03:42→11:00)
--- NOTE | 2018-01-17 06:42 | NUR ---
TIAN RN NOTES PATIENT KEPT REFUSING TO BE TURNED & REPOSITIONED THROUGHOUT SHIFT D/T PAIN. BATH ALSO OFFERED X2 AND CONTINUED TO REFUSE. Addendum: 01/17/18 at 0648 by ILENE HATCH RN UNABLE TO PUT KCL MATTRESS BECAUSE OF PATIENT'S ONGOING REFUSAL. RISKS & BENEFITS EXPLAINED.
[2018-01-17 06:46] LABS: BASOPHILS % (AUTO) 0.4 % (0.0-2.0); EOSINOPHILS % (AUTO) 2.6 % (0.0-6.0); HEMATOCRIT 22 % (39-51); HEMOGLOBIN 7.3 g/dL (13.5-17.5); LYMPHOCYTES # (AUTO) 1.2 /CMM (0.8-4.8); LYMPHOCYTES % (AUTO) 9.3 % (20.0-44.0); MEAN CORPUSCULAR HGB CONC 34 g/dl (31.0-36.0); MEAN CORPUSCULAR VOLUME 88 fL (80-96); MONOCYTES # (AUTO) 0.6 /CMM (0.1-1.30); MONOCYTES % (AUTO) 4.5 % (2.0-12.0); NEUTROPHILS # (AUTO) 10.7 /CMM (1.8-8.9); NEUTROPHILS % (AUTO) 83.2 % (43.0-81.0); PLATELET COUNT (AUTO) 444 /CMM (150-450); RDW COEFFICIENT OF VARIATION 14.5 (11.5-15.0); RED BLOOD CELL COUNT(AUTO) 2.49 MIL/uL (4.5-6.0); WHITE BLOOD COUNT (AUTO) 12.9 K/uL (4.3-11.0)
--- NOTE | 2018-01-17 07:10 | NUR ---
RN INITIAL NOTES: Rec'd pt asleep on bed, easily arousable, mouths words, c/o severe shoulder/neck pain 10/10, A/O x3. On MV via trach, sating at 100%. On telemonitor, SR. Has VAISHNAVI midline, PL, patent & intact w/ NS x 125 cc/hr infusing well. Has FC patent & intact draining to yellowish urine output. Has GT, clamped at this time for meds only. Provided comfort & safety measures. Bed kept low & in locked pos. Call light placed w/in reach. Will continue to monitor and attend pt needs.
[2018-01-17 07:15] LABS: BILIRUBIN,TOTAL 0.2 mg/dL (0.2-1.0); CALCIUM, SERUM 8.4 mg/dL (8.5-10.1); CREATININE 0.4 mg/dL (0.6-1.3); MAGNESIUM 1.7 mg/dL (1.8-2.4); POTASSIUM 3.4 mmol/L (3.5-5.1); PREALBUMIN 15.3 MG/DL (18.0-35.7); TOTAL PROTEIN, SERUM 6.4 g/dL (6.4-8.2)
--- NOTE | 2018-01-17 07:48 | NUR ---
WOUND CARE CONSULT WOUND CARE RECEIVED CONSULT FOR MULTIPLE WOUNDS. WOUND CARE WILL DEFER CONSULT AND ALL TREATMENT PLANS TO SURGICAL TEAM WHO ARE CURRENTLY FOLLOWING. PATIENT WITH LEXA AT 8, ALL PRESSURE ULCER PREVENTION MEASURES NOTED TO BE IN PLACE AT THIS TIME.
[2018-01-17 07:53] LABS: ALBUMIN 1.4 g/dL (3.4-5.0)
[2018-01-17] MEDS: ACETYLCYSTEINE 10% SOLN 400 MG/4 ML VIAL NEB SCH ×3 (08:32→23:53)
[2018-01-17] MEDS: LEVETIRACETAM SOL (5 ML) 100 MG/ML UDC PO SCH ×2 (08:38→20:20)
[2018-01-17] MEDS: MULTIVITAMINS,THERAGRAN 1 UDTAB TABLET PO SCH (08:38)
[2018-01-17] MEDS: LACTOBACILLUS RHAMNOSUS GG 1 EACH CAP.SPRINK PO SCH (08:38)
[2018-01-17] MEDS: PANTOPRAZOLE 40 MG VIAL IV SCH (08:39)
[2018-01-17] MEDS: DOCUSATE SODIUM 100 MG CAPSULE PO SCH ×2 (08:39→17:21)
[2018-01-17] MEDS: TRAMADOL HCL 50 MG TABLET PO SCH ×2 (08:39→17:20)
[2018-01-17] MEDS: GABAPENTIN 100 MG CAPSULE PO SCH ×3 (08:39→17:19)
[2018-01-17] MEDS: Z GUARD REMEDY 2 OZ OINT TP PRN (08:40)
[2018-01-17] MEDS: ENSURE ENLIVE CHOC 237 ML CAN PO SCH ×3 (08:41→17:22)
[2018-01-17] MEDS: FENTANYL PF 100MCG/2ML AMPUL IV PRN ×3 (10:37→20:23)
--- NOTE | 2018-01-17 11:00 | NUR ---
RN NOTES: Pt was seen & examined by Dr. Ryan (wound MD), did BLE wound debridement at bedside. Consent secured prior to procedure, signed by pt's mother at bedside.
[2018-01-17] MEDS ORDERED: POTASSIUM CHLORIDE 20 MEQ TAB.PRT.SR PO ONE (12:00)
[2018-01-17] MEDS: Magnesium 1GM/D5W 100ML PREMIX 100 ML IV SCH ×2 (12:13→13:12)
[2018-01-17] MEDS: HYDROCODONE/APAP 5/325MG 1 EACH TABLET PO PRN ×3 (12:13→23:07)
[2018-01-17] MEDS: MIRTAZAPINE 15 MG TABLET PO SCH (17:19)
--- NOTE | 2018-01-17 18:44 | NUR ---
RN CLOSING NOTES: No acute changes noted w/in shift. Pt still c/o pain despite of pain medications given. Pt tolerated MV setting via trach, no SOB. On telemonitor, remains SR. VAISHNAVI midline, PL, kept patent & intact w/ NS x 125 cc/hr infusing well. FC kept patent & intact draining to yellowish urine output. GT flushing well for meds. Mother is at bedside. Pt kept well rested. Needs attended. Bed kept low & in locked pos. Call light placed w/in reach. Endorsed to PM RN for KEREN.
[2018-01-17] MEDS: VANCOMYCIN HCL 0.75 GM in IV D5W 250 ML IV SCH (20:22)
[2018-01-17] MEDS ORDERED: VANCOMYCIN 1 GM in IV D5W 250 ML IV SCH (21:00)
[2018-01-18] VITALS (7 sets, daily range): BP systolic 110–131; BP diastolic 58–76
[2018-01-18] MEDS: FENTANYL PF 100MCG/2ML AMPUL IV PRN ×5 (01:55→22:50)
[2018-01-18] MEDS: ACETAMINOPHEN 325 MG TABLET PO PRN (02:00)
[2018-01-18] MEDS: IV NS 0.9% 1,000 ML IV PRN ×2 (02:04→14:12)
[2018-01-18] MEDS ORDERED: ACETYLCYSTEINE 10% SOLN 400 MG/4 ML VIAL NEB SCH (02:30)
--- NOTE | 2018-01-18 02:35 | NUR ---
RN NOTE UPON ASSESSMENT PATIENT COMPLAINED OF CHEST DISCOMFORT/PRESSURE THAT DOES NOT RADIATE, SO2 94%, ON MECHANICAL VENTILATOR, VITAL SIGNS 143/78, PULSE 93, RESPIRATIONS 21, SO2 94%, TEMPERATURE 98.7F, IMMEDIATELY NOTIFIED DOCTOR RODNEY MARQUEZ, NEW ORDER OF CHEST X-RAY, TROPONIN I, BREATHING TREATMENT GIVEN AND CARRIED OUT, MOTHER IS BY BEDSIDE, PATIENT IS AWAKE, ALERT/ORIENTED, CHARGE NURSE IS AWARE
[2018-01-18 02:58] LABS: BASOPHILS # (AUTO) 0.1 /CMM (0.0-0.2); BASOPHILS % (AUTO) 0.8 % (0.0-2.0); EOSINOPHILS % (AUTO) 3.2 % (0.0-6.0); HEMATOCRIT 22 % (39-51); HEMOGLOBIN 7.4 g/dL (13.5-17.5); LYMPHOCYTES # (AUTO) 1.4 /CMM (0.8-4.8); LYMPHOCYTES % (AUTO) 11.3 % (20.0-44.0); MEAN CORPUSCULAR HGB CONC 34 g/dl (31.0-36.0); MEAN CORPUSCULAR VOLUME 87 fL (80-96); MONOCYTES # (AUTO) 0.5 /CMM (0.1-1.30); MONOCYTES % (AUTO) 4.2 % (2.0-12.0); NEUTROPHILS # (AUTO) 10.4 /CMM (1.8-8.9); NEUTROPHILS % (AUTO) 80.5 % (43.0-81.0); PLATELET COUNT (AUTO) 502 /CMM (150-450); RDW COEFFICIENT OF VARIATION 13.7 (11.5-15.0); RED BLOOD CELL COUNT(AUTO) 2.47 MIL/uL (4.5-6.0); WHITE BLOOD COUNT (AUTO) 12.8 K/uL (4.3-11.0)
[2018-01-18 03:21] LABS: CALCIUM, SERUM 8.2 mg/dL (8.5-10.1); CREATININE 0.3 mg/dL (0.6-1.3); MAGNESIUM 1.9 mg/dL (1.8-2.4); PHOSPHORUS 4.1 mg/dL (2.5-4.9); POTASSIUM 3.5 mmol/L (3.5-5.1)
[2018-01-18] MEDS: HYDROGEL DRESSING 90 GM TUBE TP SCH ×2 (03:44→14:13)
[2018-01-18] MEDS: CEFEPIME 2 GM in IV D5W 100 ML IV SCH ×3 (03:44→18:21)
[2018-01-18] MEDS: ACETYLCYSTEINE 10% SOLN 400 MG/4 ML VIAL NEB SCH ×3 (07:52→23:24)
[2018-01-18] MEDS: ENSURE ENLIVE CHOC 237 ML CAN PO SCH ×3 (08:00→17:12)
[2018-01-18] MEDS: VANCOMYCIN HCL 0.75 GM in IV D5W 250 ML IV SCH ×2 (08:25→21:07)
[2018-01-18] MEDS: MULTIVITAMINS,THERAGRAN 1 UDTAB TABLET PO SCH (08:25)
[2018-01-18] MEDS: DOCUSATE SODIUM 100 MG CAPSULE PO SCH ×2 (08:25→17:10)
[2018-01-18] MEDS: PANTOPRAZOLE 40 MG VIAL IV SCH (08:25)
[2018-01-18] MEDS: LACTOBACILLUS RHAMNOSUS GG 1 EACH CAP.SPRINK PO SCH (08:25)
[2018-01-18] MEDS: GABAPENTIN 100 MG CAPSULE PO SCH ×3 (08:25→17:10)
[2018-01-18] MEDS: LEVETIRACETAM SOL (5 ML) 100 MG/ML UDC PO SCH ×2 (08:29→21:08)
[2018-01-18] MEDS: TRAMADOL HCL 50 MG TABLET PO SCH ×2 (08:29→17:10)
[2018-01-18] MEDS: SOD FERRIC GLUC 125 MG in IV NS 0.9% 100 ML IV SCH (15:27)
[2018-01-18] MEDS: MIRTAZAPINE 15 MG TABLET PO SCH (17:11)
[2018-01-18 18:47] LABS: OCCULT BLOOD STOOL NEGATIVE (NEGATIVE)
--- NOTE | 2018-01-18 20:00 | NUR ---
RN INITIAL NOTES: Rec'd pt awake on bed, mouths words. Mother at bedside. On MV via trach, sating at 100%. On telemonitor, SR. Has VAISHNAVI midline, PL, patent & intact w/ NS x 125 cc/hr infusing well. Has FC patent & intact draining to yellowish urine output. Has GT, clamped at this time for meds only. Provided comfort & safety measures. Bed kept low & in locked pos. Call light placed w/in reach. Will continue to monitor and attend pt needs.
[2018-01-18] MEDS: LIDOCAINE 5% (PATCH) 1 EA PATCH TP SCH (21:07)
[2018-01-18] MEDS: HYDROCODONE/APAP 5/325MG 1 EACH TABLET PO PRN (21:08)
[2018-01-19] VITALS: BP 108/52
[2018-01-19] MEDS: IV NS 0.9% 1,000 ML IV PRN ×2 (02:51→17:03)
[2018-01-19] MEDS: HYDROGEL DRESSING 90 GM TUBE TP SCH ×2 (02:52→14:46)
[2018-01-19] MEDS: CEFEPIME 2 GM in IV D5W 100 ML IV SCH ×3 (02:52→20:26)
[2018-01-19 04:00] VITALS: BP 132/69
--- NOTE | 2018-01-19 06:05 | NUR ---
RN CLOSING NOTES: No acute changes noted w/in shift. Pt tolerated MV setting via trach, no SOB. On telemonitor, remains SR. VAISHNAVI midline, PL, kept patent & intact w/ NS x 125 cc/hr infusing well. FC kept patent & intact draining to yellowish urine output. GT flushing well for meds. Mother is at bedside. Pt kept well rested. Needs attended. Bed kept low & in locked pos. Call light placed w/in reach. Endorsed to AM RN for KEREN.
[2018-01-19] MEDS: ACETYLCYSTEINE 10% SOLN 400 MG/4 ML VIAL NEB SCH ×3 (07:19→23:30)
--- NOTE | 2018-01-19 07:30 | NUR ---
RN INITIAL NOTES: Received in bed. eyes closed. no distress noted. o2 sat 100% via trache. mom at bedside. will continue to monitor.
[2018-01-19 08:00] VITALS: BP 129/72
[2018-01-19 08:04] VITALS: BP 129/72
[2018-01-19 08:29] LABS: CALCIUM, SERUM 8.8 mg/dL (8.5-10.1); CREATININE 0.4 mg/dL (0.6-1.3); MAGNESIUM 1.9 mg/dL (1.8-2.4); PHOSPHORUS 3.5 mg/dL (2.5-4.9); POTASSIUM 3.4 mmol/L (3.5-5.1)
[2018-01-19 08:39] LABS: BASOPHILS % (AUTO) 0.1 % (0.0-2.0); EOSINOPHILS % (AUTO) 3.3 % (0.0-6.0); HEMATOCRIT 22 % (39-51); HEMOGLOBIN 7.5 g/dL (13.5-17.5); LYMPHOCYTES # (AUTO) 1.5 /CMM (0.8-4.8); LYMPHOCYTES % (AUTO) 14.2 % (20.0-44.0); MEAN CORPUSCULAR HGB CONC 35 g/dl (31.0-36.0); MEAN CORPUSCULAR VOLUME 87 fL (80-96); MONOCYTES # (AUTO) 0.6 /CMM (0.1-1.30); MONOCYTES % (AUTO) 5.4 % (2.0-12.0); NEUTROPHILS # (AUTO) 8.1 /CMM (1.8-8.9); PLATELET COUNT (AUTO) 548 /CMM (150-450); RDW COEFFICIENT OF VARIATION 13.7 (11.5-15.0); RED BLOOD CELL COUNT(AUTO) 2.49 MIL/uL (4.5-6.0); WHITE BLOOD COUNT (AUTO) 10.5 K/uL (4.3-11.0)
[2018-01-19] MEDS: ENSURE ENLIVE CHOC 237 ML CAN PO SCH ×3 (09:29→16:55)
[2018-01-19] MEDS: PANTOPRAZOLE 40 MG VIAL IV SCH (09:29)
[2018-01-19] MEDS: DOCUSATE SODIUM 100 MG CAPSULE PO SCH ×2 (09:29→16:54)
[2018-01-19] MEDS: TRAMADOL HCL 50 MG TABLET PO SCH ×2 (09:30→16:55)
[2018-01-19] MEDS: MULTIVITAMINS,THERAGRAN 1 UDTAB TABLET PO SCH (09:30)
[2018-01-19] MEDS: VANCOMYCIN HCL 0.75 GM in IV D5W 250 ML IV SCH (09:30)
[2018-01-19] MEDS: LEVETIRACETAM SOL (5 ML) 100 MG/ML UDC PO SCH ×2 (09:30→20:26)
[2018-01-19] MEDS: LACTOBACILLUS RHAMNOSUS GG 1 EACH CAP.SPRINK PO SCH (09:30)
[2018-01-19] MEDS: GABAPENTIN 100 MG CAPSULE PO SCH ×3 (09:30→16:54)
[2018-01-19] MEDS ORDERED: POTASSIUM CHLORIDE 20 MEQ TAB.PRT.SR PO SCH (10:30)
[2018-01-19] MEDS ORDERED: LIDO30AD10 TP (11:23)
[2018-01-19 12:00] VITALS: BP 131/69
--- NOTE | 2018-01-19 12:30 | NUR ---
RN NOTES: Pt skipped breakfast. encouraged to eat lunch. GT clamped and used for meds only. [place] cath draining well. No resp distress noted. mom at bedside. bed low and locked. call light within reached. will cont to monitor.
[2018-01-19] MEDS: FENTANYL PF 100MCG/2ML AMPUL IV PRN ×2 (13:53→17:59)
[2018-01-19] MEDS: SOD FERRIC GLUC 125 MG in IV NS 0.9% 100 ML IV SCH (14:45)
[2018-01-19] MEDS: HYDROCODONE/APAP 5/325MG 1 EACH TABLET PO PRN ×2 (15:49→21:30)
[2018-01-19] MEDS: MIRTAZAPINE 15 MG TABLET PO SCH (16:58)
--- NOTE | 2018-01-19 17:43 | NUR ---
RT NOTE Received trach pt on mechanical vent. Pt trach is secure. Vent is plugged into a red outlet, alarms are set and audible, and BVM is at bedside.
--- NOTE | 2018-01-19 18:30 | NUR ---
RN CLOSING NOTES: Sacral and R elbow wound dressing changed. pt crying with dressing changes due to pain. Mom stated that pt had been having bilateral shoulder pains and nothing had been done yet. Pain medications not effective. Informed night RN to f/u with MD for c/o merrill shoulder pain.
[2018-01-19 20:00] VITALS: BP 126/70
[2018-01-19] MEDS: LIDOCAINE 5% (PATCH) 1 EA PATCH TP SCH (20:26)
[2018-01-19] MEDS ORDERED: HYDROMORPHONE INJ 2 MG/ML DISP.SYRIN IV ONE (20:30)
[2018-01-20] VITALS: BP_SYST 115; BP_SYST 126; BP_DIAS 61; BP_DIAS 70
[2018-01-20] MEDS: FENTANYL PF 100MCG/2ML AMPUL IV PRN ×6 (01:22→23:30)
[2018-01-20] MEDS: HYDROGEL DRESSING 90 GM TUBE TP SCH ×2 (01:24→14:03)
[2018-01-20] MEDS: IV NS 0.9% 1,000 ML IV PRN ×3 (01:30→19:09)
[2018-01-20] MEDS: CEFEPIME 2 GM in IV D5W 100 ML IV SCH ×3 (02:02→19:05)
[2018-01-20] MEDS: HYDROCODONE/APAP 5/325MG 1 EACH TABLET PO PRN ×5 (02:29→20:47)
[2018-01-20 04:00] VITALS: BP 126/70
[2018-01-20 06:29] LABS: BASOPHILS % (AUTO) 0.4 % (0.0-2.0); EOSINOPHILS % (AUTO) 2.9 % (0.0-6.0); HEMATOCRIT 23 % (39-51); HEMOGLOBIN 7.7 g/dL (13.5-17.5); LYMPHOCYTES # (AUTO) 1.5 /CMM (0.8-4.8); LYMPHOCYTES % (AUTO) 12.6 % (20.0-44.0); MEAN CORPUSCULAR HGB CONC 33 g/dl (31.0-36.0); MEAN CORPUSCULAR VOLUME 88 fL (80-96); MONOCYTES # (AUTO) 0.5 /CMM (0.1-1.30); MONOCYTES % (AUTO) 4.2 % (2.0-12.0); NEUTROPHILS # (AUTO) 9.4 /CMM (1.8-8.9); NEUTROPHILS % (AUTO) 79.9 % (43.0-81.0); PLATELET COUNT (AUTO) 557 /CMM (150-450); RDW COEFFICIENT OF VARIATION 14.3 (11.5-15.0); RED BLOOD CELL COUNT(AUTO) 2.63 MIL/uL (4.5-6.0); WHITE BLOOD COUNT (AUTO) 11.8 K/uL (4.3-11.0)
--- NOTE | 2018-01-20 06:29 | NUR ---
RN CLOSING NOTES: No acute changes noted w/in shift. Pt tolerated MV setting via trach, no SOB. On telemonitor, remains SR. VAISHNAVI midline, PL, kept patent & intact w/ NS x 125 cc/hr infusing well. FC kept patent & intact draining to yellowish urine output. GT flushing well for meds. Mother is at bedside. Pt c/o for pain. pain meds given as ordered. Needs attended. Bed kept low & in locked pos. Call light placed w/in reach. Endorsed to AM RN for KEREN.
[2018-01-20 06:32] LABS: CALCIUM, SERUM 8.7 mg/dL (8.5-10.1); CREATININE 0.4 mg/dL (0.6-1.3); MAGNESIUM 1.8 mg/dL (1.8-2.4); PHOSPHORUS 3.6 mg/dL (2.5-4.9); POTASSIUM 3.6 mmol/L (3.5-5.1)
--- NOTE | 2018-01-20 07:30 | NUR ---
RN NOTE RECEIVED PATIENT IN BED. ALERT AND ORIENTED X 2-3, HE IS ABLE TO MOUTH HIS WORDS. ON VENT/TRACH SETTING ORDERED AND SATURATING WELL. NO DISTRESS NOTED AT THIS TIME. ON SENIOR GAME ADVISOR SINUS RYTHYM HR OF 76. LEFT UPPER MIDLINE SITE INTACT AND PATENT. HEAD OF BED ELEVATED FOR COMFORT. F/C INTACT AND PATENT WITH ADEQUATE FLOW OF URINE. GT SITE INTACT AND PATENT AND CLAMPED AT THIS TIME, NO TUBE FEEDING RUNNING, IT IS USED FOR MEDICATIONS ONLY. PROVIDED COMFORT AND SAFETY MEASURES. BED LOW AND LOCKED POSITION. PLACED CALL LIGHT WITHIN REACH. WILL CONTINUE TO MONITOR AND ATTEND PATIENTS NEEDS.
[2018-01-20] MEDS: ACETYLCYSTEINE 10% SOLN 400 MG/4 ML VIAL NEB SCH ×2 (07:42→16:06)
[2018-01-20] MEDS: ACETAMINOPHEN 325 MG TABLET PO PRN (07:45)
--- NOTE | 2018-01-20 07:47 | NUR ---
RT PATIENT REC'D TRACHED ON [facility] VENT WITH NOTED SETTINGS PABLO WELL. VENT ALARMS CHECKED + AUDIBLE. CUFF PRESSURE CHECKED INVESTIGATOR FRAUD. PATIENT AIRWAY WAS SUCTIONED WITH SMALL AMT OF PALE SEMITHICK SECRETIONS. PATIENT AWAKE + ALERT AND IN NO DISTRESS OR SOB AT THIS TIME. AMBU BAG AT HOB. CONT CURRENT PLAN OF RESP CARE. Addendum: 01/20/18 at 0749 by MRYA FELTON RT Amended: Links added.
[2018-01-20 08:00] VITALS: BP 134/72
[2018-01-20] MEDS: TRAMADOL HCL 50 MG TABLET PO SCH ×2 (08:45→17:02)
[2018-01-20] MEDS: LACTOBACILLUS RHAMNOSUS GG 1 EACH CAP.SPRINK PO SCH (08:46)
[2018-01-20] MEDS: GABAPENTIN 100 MG CAPSULE PO SCH ×3 (08:46→17:02)
[2018-01-20] MEDS: LEVETIRACETAM SOL (5 ML) 100 MG/ML UDC PO SCH ×2 (08:46→20:47)
[2018-01-20] MEDS: MULTIVITAMINS,THERAGRAN 1 UDTAB TABLET PO SCH (08:46)
[2018-01-20] MEDS: PANTOPRAZOLE 40 MG VIAL IV SCH (08:46)
[2018-01-20] MEDS: DOCUSATE SODIUM 100 MG CAPSULE PO SCH ×2 (08:46→17:02)
[2018-01-20] MEDS: ENSURE ENLIVE CHOC 237 ML CAN PO SCH ×3 (08:47→17:05)
[2018-01-20 12:00] VITALS: BP 138/79
--- NOTE | 2018-01-20 13:20 | NUR ---
RN NOTE TOOK PATIENT TO CT SCAN WITH RT AND TRANSPORTER, PATIENT REMAINED STABLE, PATIENT REFUSED TO BE REPOSITIONED EXPLAINED RISK AND BENEFITS, PATIENT STATED TO COME BACK.
--- NOTE | 2018-01-20 14:00 | NUR ---
RN NOTE PATIENT REFUSED TO HAVE WOUND DRESSINGS CHANGED ORDERED. PATIENT STATED HE IS IN TOO MUCH PAIN AND TO COME BACK IN IN 2 HOURS.
[2018-01-20] MEDS: SOD FERRIC GLUC 125 MG in IV NS 0.9% 100 ML IV SCH (15:12)
[2018-01-20 16:00] VITALS: BP 136/75
--- NOTE | 2018-01-20 16:00 | NUR ---
RN NOTE PATIENT REFUSED TO HAVE WOUND DRESSINGS CHANGED. OFFERED PATIENT 3 TIMES AT BEDSIDE WITH MOTHER'S PRESENCE AND PATIENT STILL REFUSED. PATIENT AND MOTHER STATED WILL PREFER TO HAVE DRESSINGS CHANGES AT NIGHT. EXPLAINED RISKS AND BENEFITS OF HAVING DRESSINGS CHANGED EVERY SHIFT AND STILL REFUSED. ALL PRN PAIN MEDICATION GIVEN DURING SHIFT. WILL ENDORSE TO NEXT SHIFT OF REFUSAL.
[2018-01-20] MEDS: MIRTAZAPINE 15 MG TABLET PO SCH (17:01)
--- NOTE | 2018-01-20 19:02 | NUR ---
RN NOTE PATIENT REMAINED STABLE THROUGHOUT SHIFT. NO ACUTE CHANGES OR DISTRESS NOTED. WILL ENDORSE TO NEXT SHIFT TO CONTINUE CONTINUITY OF CARE
[2018-01-20 20:00] VITALS: BP 126/68
[2018-01-20] MEDS: LIDOCAINE 5% (PATCH) 1 EA PATCH TP SCH (20:48)
[2018-01-20] MEDS ORDERED: VANCOMYCIN 1,500 MG in IV D5W 250 ML IV ONE (21:00)
[2018-01-20] MEDS ORDERED: VANCOMYCIN 1 GM VIAL ONE (21:13)
[2018-01-21] VITALS: BP 113/71
--- NOTE | 2018-01-21 02:00 | NUR ---
RN NOTES PT REFUSED BATH AND DRESSING CHANGE. PT EDUCATED ON THE IMPORTANCE OF DRESSING CHANGE.
[2018-01-21] MEDS: HYDROGEL DRESSING 90 GM TUBE TP SCH ×2 (02:15→13:41)
[2018-01-21] MEDS: CEFEPIME 2 GM in IV D5W 100 ML IV SCH ×3 (02:15→22:38)
[2018-01-21] MEDS: HYDROCODONE/APAP 5/325MG 1 EACH TABLET PO PRN ×3 (02:16→13:29)
[2018-01-21 04:00] VITALS: BP 112/75
[2018-01-21] MEDS: FENTANYL PF 100MCG/2ML AMPUL IV PRN ×4 (06:01→20:08)
[2018-01-21 06:36] LABS: BASOPHILS % (AUTO) 0.3 % (0.0-2.0); EOSINOPHILS % (AUTO) 3.8 % (0.0-6.0); HEMATOCRIT 23 % (39-51); HEMOGLOBIN 7.4 g/dL (13.5-17.5); LYMPHOCYTES # (AUTO) 1.4 /CMM (0.8-4.8); MEAN CORPUSCULAR HGB CONC 33 g/dl (31.0-36.0); MEAN CORPUSCULAR VOLUME 88 fL (80-96); MONOCYTES # (AUTO) 0.4 /CMM (0.1-1.30); MONOCYTES % (AUTO) 4.3 % (2.0-12.0); NEUTROPHILS # (AUTO) 7.6 /CMM (1.8-8.9); NEUTROPHILS % (AUTO) 77.6 % (43.0-81.0); PLATELET COUNT (AUTO) 549 /CMM (150-450); RDW COEFFICIENT OF VARIATION 14.9 (11.5-15.0); WHITE BLOOD COUNT (AUTO) 9.8 K/uL (4.3-11.0)
[2018-01-21 06:45] LABS: CALCIUM, SERUM 8.5 mg/dL (8.5-10.1); CREATININE 0.3 mg/dL (0.6-1.3); MAGNESIUM 1.7 mg/dL (1.8-2.4); PHOSPHORUS 3.5 mg/dL (2.5-4.9)
[2018-01-21 06:52] LABS: POTASSIUM 3.4 mmol/L (3.5-5.1)
[2018-01-21] MEDS: ACETYLCYSTEINE 10% SOLN 400 MG/4 ML VIAL NEB SCH ×3 (07:28→23:30)
--- NOTE | 2018-01-21 07:36 | NUR ---
RT PATIENT REC'D TRACHED ON [facility] VENT WITH NOTED SETTINGS PABLO WELL. VENT ALARMS CHECKED + AUDIBLE. CUFF PRESSURE CHECKED TRIBAL JUDGE. PATIENT AIRWAY WAS SUCTIONED WITH SMALL AMT OF PALE SEMITHICK SECRETIONS. PATIENT AWAKE + ALERT AND IN NO DISTRESS OR SOB AT THIS TIME. AMBU BAG AT HOB. CONT CURRENT PLAN OF RESP CARE. Addendum: 01/21/18 at 1805 by MYRA FELTON RT Amended: Links added.
--- NOTE | 2018-01-21 07:45 | NUR ---
RN NOTE RECEIVED PATIENT IN BED. ALERT AND ORIENTED X 3, HE IS ABLE TO MOUTH HIS WORDS. ON VENT/TRACH SETTING ORDERED AND SATURATING WELL. NO DISTRESS NOTED AT THIS TIME. ON BANKING ANALYST SINUS RHYTHM HR OF 63. LEFT UPPER MIDLINE SITE INTACT AND PATENT. HEAD OF BED ELEVATED FOR COMFORT. F/C INTACT AND PATENT WITH ADEQUATE FLOW OF URINE. GT SITE INTACT AND PATENT AND CLAMPED AT THIS TIME, IT IS USED FOR MEDICATIONS ONLY. PROVIDED COMFORT AND SAFETY MEASURES. BED LOW AND LOCKED POSITION. PLACED CALL LIGHT WITHIN REACH. WILL CONTINUE TO MONITOR AND ATTEND PATIENTS NEEDS.
[2018-01-21] MEDS: IV NS 0.9% 1,000 ML IV PRN ×2 (07:52→20:10)
[2018-01-21 08:00] VITALS: BP 149/79
[2018-01-21] MEDS: TRAMADOL HCL 50 MG TABLET PO SCH ×2 (08:34→16:58)
[2018-01-21] MEDS: LACTOBACILLUS RHAMNOSUS GG 1 EACH CAP.SPRINK PO SCH (08:34)
[2018-01-21] MEDS: LEVETIRACETAM SOL (5 ML) 100 MG/ML UDC PO SCH ×2 (08:34→21:44)
[2018-01-21] MEDS: GABAPENTIN 100 MG CAPSULE PO SCH ×3 (08:35→16:58)
[2018-01-21] MEDS: MULTIVITAMINS,THERAGRAN 1 UDTAB TABLET PO SCH (08:35)
[2018-01-21] MEDS: DOCUSATE SODIUM 100 MG CAPSULE PO SCH ×2 (08:35→16:58)
[2018-01-21] MEDS: ENSURE ENLIVE CHOC 237 ML CAN PO SCH ×3 (08:35→17:00)
[2018-01-21] MEDS: PANTOPRAZOLE 40 MG VIAL IV SCH (08:35)
[2018-01-21 12:00] VITALS: BP 112/67
[2018-01-21] MEDS: Magnesium 1GM/D5W 100ML PREMIX 100 ML IV SCH ×2 (12:08→13:07)
[2018-01-21] MEDS ORDERED: POTASSIUM CHLORIDE 20 MEQ TAB.PRT.SR PO ONE (12:30)
[2018-01-21] MEDS ORDERED: VANCOMYCIN 0.75 GM in IV D5W 250 ML IV SCH (13:00)
[2018-01-21] MEDS: ENOXAPARIN SODIUM 40 MG/0.4 ML DISP.SYRIN SQ SCH (13:26)
[2018-01-21] MEDS: VANCOMYCIN 0.75 GM in IV D5W 250 ML IV SCH (13:34)
[2018-01-21] MEDS: SOD FERRIC GLUC 125 MG in IV NS 0.9% 100 ML IV SCH (15:12)
[2018-01-21 16:00] VITALS: BP 107/63
[2018-01-21] MEDS: oxyCODONE IR immediate release 5 MG PO PRN ×2 (16:58→23:43)
[2018-01-21] MEDS: MIRTAZAPINE 15 MG TABLET PO SCH (16:58)
--- NOTE | 2018-01-21 19:17 | NUR ---
RN NOTE PATIENT REMAINED STABLE THROUGHOUT SHIFT. PATIENT ALLOWED TO BE REPOSITIONED , AND CLEANED THROUGHOUT SHIFT AND COMPLIANT WITH WOUND DRESSING CHANGES. NO ACUTE CHANGES OR DISTRESS NOTED. WILL ENDORSE TO NEXT SHIFT TO CONTINUE CONTINUITY OF CARE
[2018-01-21 20:00] VITALS: BP 125/71
--- NOTE | 2018-01-21 20:00 | NUR ---
RN INITIAL NOTE RECEIVED PATIENT IN BED. ALERT AND ORIENTED X 3, HE IS ABLE TO MOUTH HIS WORDS. ON VENT/TRACH SETTING ORDERED AND SATURATING WELL. NO DISTRESS NOTED AT THIS TIME. ON TWITCHELL OPERATOR SINUS RHYTHM HR OF 63. LEFT UPPER MIDLINE SITE INTACT AND PATENT. HEAD OF BED ELEVATED FOR COMFORT. F/C INTACT AND PATENT WITH ADEQUATE FLOW OF URINE. GT SITE INTACT AND PATENT AND CLAMPED AT THIS TIME, IT IS USED FOR MEDICATIONS ONLY. PROVIDED COMFORT AND SAFETY MEASURES. BED LOW AND LOCKED POSITION. PLACED CALL LIGHT WITHIN REACH.
[2018-01-21] MEDS: LIDOCAINE 5% (PATCH) 1 EA PATCH TP SCH (20:12)
[2018-01-22] VITALS: BP_SYST 125; BP_SYST 135; BP_DIAS 71
[2018-01-22] MEDS: FENTANYL PF 100MCG/2ML AMPUL IV PRN ×5 (01:04→22:32)
[2018-01-22] MEDS: VANCOMYCIN 0.75 GM in IV D5W 250 ML IV SCH ×2 (01:04→14:22)
[2018-01-22] MEDS: HYDROGEL DRESSING 90 GM TUBE TP SCH ×2 (01:15→14:23)
[2018-01-22 04:00] VITALS: BP 137/76
[2018-01-22] MEDS: CEFEPIME 2 GM in IV D5W 100 ML IV SCH ×3 (05:43→20:04)
[2018-01-22] MEDS: IV NS 0.9% 1,000 ML IV PRN ×2 (05:52→22:35)
[2018-01-22 06:44] LABS: BASOPHILS % (AUTO) 0.3 % (0.0-2.0); EOSINOPHILS % (AUTO) 2.1 % (0.0-6.0); HEMATOCRIT 24 % (39-51); HEMOGLOBIN 8.3 g/dL (13.5-17.5); LYMPHOCYTES # (AUTO) 1.4 /CMM (0.8-4.8); LYMPHOCYTES % (AUTO) 11.1 % (20.0-44.0); MEAN CORPUSCULAR HGB CONC 34 g/dl (31.0-36.0); MEAN CORPUSCULAR VOLUME 88 fL (80-96); MONOCYTES # (AUTO) 0.5 /CMM (0.1-1.30); MONOCYTES % (AUTO) 3.9 % (2.0-12.0); NEUTROPHILS # (AUTO) 10.7 /CMM (1.8-8.9); NEUTROPHILS % (AUTO) 82.6 % (43.0-81.0); PLATELET COUNT (AUTO) 527 /CMM (150-450); RDW COEFFICIENT OF VARIATION 14.9 (11.5-15.0); RED BLOOD CELL COUNT(AUTO) 2.76 MIL/uL (4.5-6.0)
--- NOTE | 2018-01-22 06:58 | NUR ---
RN CLOSING NOTES PT REMAINED STABLE OVER NIGHT. PT REFUSED DRESSING CHANGE. REFUSED TO HAVE PICTURES TAKEN OF HIS WOUND. PT ASKED FOR PAIM MEDS Q2, ALL MEDS GIVEN IN A TIMELY MANNER. WILL ENDORSE TO AM RN.
[2018-01-22] MEDS: ACETYLCYSTEINE 10% SOLN 400 MG/4 ML VIAL NEB SCH ×3 (07:02→23:34)
--- NOTE | 2018-01-22 07:02 | NUR ---
RT PATIENT REC'D TRACHED ON [facility] VENT WITH NOTED SETTINGS PABLO WELL. VENT ALARMS CHECKED + AUDIBLE. CUFF PRESSURE CHECKED SHOP SERVICE TECHNICIAN. PATIENT AIRWAY WAS SUCTIONED WITH SMALL AMT OF PALE SEMITHICK SECRETIONS. PATIENT AWAKE + ALERT AND IN NO DISTRESS OR SOB AT THIS TIME. AMBU BAG AT HOB. CONT CURRENT PLAN OF RESP CARE. Addendum: 01/22/18 at 1210 by MYRA FELTON RT Amended: Links added.
[2018-01-22 07:05] LABS: CALCIUM, SERUM 8.7 mg/dL (8.5-10.1); CREATININE 0.4 mg/dL (0.6-1.3); MAGNESIUM 1.9 mg/dL (1.8-2.4); PHOSPHORUS 3.2 mg/dL (2.5-4.9); POTASSIUM 3.3 mmol/L (3.5-5.1)
--- NOTE | 2018-01-22 07:42 | NUR ---
DIRECTOR OF CAPITAL GIVING INITIAL NOTE RN RECEIVED PATIENT IN BED.EYES CLOSED NO DISTRESS NOTED AT THIS TIME , ON VENT/TRACH SETTING ORDERED AND SATURATING WELL. PT REMAINS ON ASSISTANT PROFESSOR OF MATHEMATICS SINUS RHYTHM HR WNL. LEFT UPPER MIDLINE SITE INTACT AND PATENT. HEAD OF BED ELEVATED FOR COMFORT. F/C INTACT AND PATENT WITH ADEQUATE FLOW OF URINE. GT SITE INTACT AND PATENT. CLAMPED AT THIS TIME, MEDICATIONS ONLY. BED LOW AND LOCKED POSITION SAFETY MEASURE IN PLACE. CALL LIGHT WITHIN REACH. RN WILL CONTINUE TO MONITOR THROUGHOUT THE DAY
[2018-01-22 08:00] VITALS: BP 127/72
[2018-01-22] MEDS: ENSURE ENLIVE CHOC 237 ML CAN PO SCH ×3 (08:00→17:00)
[2018-01-22] MEDS: PANTOPRAZOLE 40 MG VIAL IV SCH (08:13)
[2018-01-22] MEDS: GABAPENTIN 100 MG CAPSULE PO SCH ×3 (08:13→16:21)
[2018-01-22] MEDS: MULTIVITAMINS,THERAGRAN 1 UDTAB TABLET PO SCH (08:13)
[2018-01-22] MEDS: TRAMADOL HCL 50 MG TABLET PO SCH ×2 (08:13→16:22)
[2018-01-22] MEDS: LACTOBACILLUS RHAMNOSUS GG 1 EACH CAP.SPRINK PO SCH (08:13)
[2018-01-22] MEDS: LEVETIRACETAM SOL (5 ML) 100 MG/ML UDC PO SCH ×2 (08:14→20:03)
[2018-01-22] MEDS: DOCUSATE SODIUM 100 MG CAPSULE PO SCH ×2 (08:14→16:22)
[2018-01-22] MEDS: ENOXAPARIN SODIUM 40 MG/0.4 ML DISP.SYRIN SQ SCH (08:25)
[2018-01-22] MEDS ORDERED: POTASSIUM CHLORIDE 20 MEQ TAB.PRT.SR PO ONE (10:30)
[2018-01-22 12:00] VITALS: BP 131/71
[2018-01-22 16:00] VITALS: BP 131/80
[2018-01-22] MEDS: oxyCODONE IR immediate release 5 MG PO PRN (16:21)
--- NOTE | 2018-01-22 16:33 | NUR ---
RN NOTE PATIENT MOTHER UPDATED ON THE PLAN OF CARE FOR THE PATIENT , PATIENT HAS BEEN REFUSING CARE SUCH BATHING , DRESSING CHANGE , AND REPOSITIONING DUE TO PAIN IN NECK AND SHOULDER ONLY RELIEVED VIA PAIN MEDICATION. PATIENT CONSENT OBTAINED FOR DEBRIDEMENT OF WOUND HOWEVER PATIENT REFUSED UNTIL HE RECEIVED HIS PAIN MEDICATION MD AND KIMBERLI RN NOTIFIED RN TO ADMINISTER SCHEDULED ALONG WITH PRN PAIN MEDICATION VIA G-TUBE RN WILL CONTINUE TO MONITOR THE PATIENT RESPIRATORY AND PAIN STATUS POST PAIN MEDICATION MANAGEMENT.
[2018-01-22] MEDS: MIRTAZAPINE 15 MG TABLET PO SCH (18:20)
[2018-01-22] MEDS: SOD FERRIC GLUC 125 MG in IV NS 0.9% 100 ML IV SCH (18:21)
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
--- NOTE | 2018-01-22 19:07 | NUR ---
PATIENT REC'D TRACHED ON [facility] VENT WITH NOTED SETTINGS PABLO WELL. VENT ALARMS CHECKED + AUDIBLE. CUFF PRESSURE CHECKED EMPLOYEE RELATIONS MANAGER. PATIENT AIRWAY WAS SUCTIONED WITH SMALL AMT OF PALE SEMITHICK SECRETIONS. PATIENT AWAKE + ALERT AND IN NO DISTRESS OR SOB AT THIS TIME. AMBU BAG AT HOB. CONT CURRENT PLAN OF RESP CARE. Addendum: 01/23/18 at 0556 by ORALIA AVILA RT Amended: Links added.
--- NOTE | 2018-01-22 19:30 | NUR ---
RN OPENING NOTES: RECEIVED PATIENT ON BED AWAKE, TRACH TO MECH VENT, NOT IN APPARENT DISTRESS. ALERT AND ORIENTED ABLE TO MOUTH WORDS. WITH COMPLAINTS OF SEVERE PAIN OVER NECK AND SHOULDERS RIGHT MORE THAN THE LEFT. PATIENT COMPLAINING OF " SEEING SPOTS" AFTER EATING AND ASSOCIATES THIS WITH HIS PAIN. PAIN MANAGEMENT ORDERED. EDUCATED PATIENT RE PAIN MED SCHEDULE. REFUSED TO BE REPOSITIONED AT THIS TIME AND CLAIMS HE "WAS JUST MOVED". TO RE OFFER AFTER PAIN MANAGEMENT. GT INTACT FLUSHED WELL. IV ACCESS ON VAISHNAVI MIDLINE. IVF ORDERED. FC INTACT TO A CLSOED SYSTEM VIA GRAVITY. SAFETY MEASURES ENSURED AT ALL TIMES. PATIENT;S MOTHER AT BEDSIDE. CONTINUOUSLY MONITORED.
[2018-01-22 20:00] VITALS: BP 118/67
[2018-01-22] MEDS: LIDOCAINE 5% (PATCH) 1 EA PATCH TP SCH (20:03)
[2018-01-22] MEDS: HYDROCODONE/APAP 5/325MG 1 EACH TABLET PO PRN (20:03)
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
[2018-01-23] VITALS: BP 120/66
[2018-01-23] MEDS: VANCOMYCIN 0.75 GM in IV D5W 250 ML IV SCH ×2 (01:21→14:00)
[2018-01-23] MEDS: oxyCODONE IR immediate release 5 MG PO PRN ×3 (02:06→19:27)
[2018-01-23] MEDS: HYDROGEL DRESSING 90 GM TUBE TP SCH ×2 (02:06→13:19)
[2018-01-23] MEDS: FENTANYL PF 100MCG/2ML AMPUL IV PRN ×4 (03:15→22:45)
[2018-01-23 04:00] VITALS: BP 107/62
[2018-01-23] MEDS: CEFEPIME 2 GM in IV D5W 100 ML IV SCH ×3 (04:03→20:31)
[2018-01-23] MEDS: ACETAMINOPHEN 325 MG TABLET PO PRN ×2 (04:57→20:31)
--- NOTE | 2018-01-23 05:00 | NUR ---
RN CLOSING NOTES: PATIENT REMAINED IN BED TRACH TO [facility] VENT. AM CARE REFUSED BUT AGREED TO REPOSITIONING BUT AFTER REPOSITIONING AND TRACH CARE PATIENT COMPLAINING OF SHORTNESS OF BREATH. NOTED TO DESATURATE DESPITE SUCTIONING. ORALIA GRIFFITH MADE AWARE. PATIENT WITH FREQUENT REQUEST FOR PAIN MEDS. COMPLAINING OF PAIN AGAIN, NOT DUE FOR FENTANYL OR OXY IR AND MADE AWARE HE CAN HAVE NORCO; REQUESTED TYLENOL AT THIS TIME. EDUCATED PATIENT TYLENOL IS FOR MILD PAIN. AMENABLE TO MED. AFTER INTERVENTION PATIENT REMAINED CALM AND SATURATING WNL NOW.
--- NOTE | 2018-01-23 06:36 | NUR ---
RN CLOSING NOTES: PATIENT REMAINED IN BED NOT IN DISTRESS. TRACH TO [facility] VENT SATURATING WELL. REMAINED SR ON THE MONITOR. AM LABS ORDERED. PENDING RESULTS. IV ACCESS REMAINED INTACT. FC INTACT, UO DRAINED AND DOCUMENTED. SAFETY MEASURES ENSURED. FAMILY MEMBER REMAINED AT BEDSIDE. TO MONITOR FOR PAIN; PATIENT REMAINED REFUSING REPOSITIONING AND REFUSED DRESSING CHANGE "THE DOCTORS CAME IN AND CHANGED MY DRESSINGS, YOU DONT HAVE TO CHANGE IT. EXPLAINED TO PATIENT NECESSITY TO ASSESS WOUNDS. PATIENT REFUSING. CONTINUOUSLY MONITORED. TO ENDORSE TO AM SHIFT RN.
[2018-01-23 06:55] LABS: CALCIUM, SERUM 8.4 mg/dL (8.5-10.1); CREATININE 0.3 mg/dL (0.6-1.3); POTASSIUM 3.5 mmol/L (3.5-5.1)
[2018-01-23] MEDS: ACETYLCYSTEINE 10% SOLN 400 MG/4 ML VIAL NEB SCH ×3 (07:48→23:22)
[2018-01-23 08:00] VITALS: BP 92/50
[2018-01-23] MEDS: IV NS 0.9% 1,000 ML IV PRN ×2 (08:15→18:19)
[2018-01-23] MEDS: ENSURE ENLIVE CHOC 237 ML CAN PO SCH ×3 (08:15→17:00)
[2018-01-23] MEDS: PANTOPRAZOLE 40 MG VIAL IV SCH (08:15)
[2018-01-23] MEDS: LACTOBACILLUS RHAMNOSUS GG 1 EACH CAP.SPRINK PO SCH (08:16)
[2018-01-23] MEDS: DOCUSATE SODIUM 100 MG CAPSULE PO SCH (08:16)
[2018-01-23] MEDS: TRAMADOL HCL 50 MG TABLET PO SCH ×2 (08:17→17:54)
[2018-01-23] MEDS: LEVETIRACETAM SOL (5 ML) 100 MG/ML UDC PO SCH ×2 (08:17→20:38)
[2018-01-23] MEDS: GABAPENTIN 100 MG CAPSULE PO SCH ×3 (08:17→17:54)
[2018-01-23] MEDS: MULTIVITAMINS,THERAGRAN 1 UDTAB TABLET PO SCH (08:17)
[2018-01-23] MEDS: ENOXAPARIN SODIUM 40 MG/0.4 ML DISP.SYRIN SQ SCH (08:18)
[2018-01-23 12:00] VITALS: BP 131/80
[2018-01-23] MEDS ORDERED: OXYC5CAP18 PO (13:20)
[2018-01-23] MEDS ORDERED: VANC750F2 IV (13:20)
[2018-01-23 13:25] LABS: BASOPHILS # (AUTO) 0.1 /CMM (0.0-0.2); BASOPHILS % (AUTO) 0.9 % (0.0-2.0); EOSINOPHILS % (AUTO) 2.4 % (0.0-6.0); HEMATOCRIT 23 % (39-51); HEMOGLOBIN 7.5 g/dL (13.5-17.5); LYMPHOCYTES # (AUTO) 1.3 /CMM (0.8-4.8); LYMPHOCYTES % (AUTO) 12.5 % (20.0-44.0); MEAN CORPUSCULAR HGB CONC 33 g/dl (31.0-36.0); MEAN CORPUSCULAR VOLUME 89 fL (80-96); MONOCYTES # (AUTO) 0.5 /CMM (0.1-1.30); MONOCYTES % (AUTO) 4.9 % (2.0-12.0); NEUTROPHILS # (AUTO) 8.2 /CMM (1.8-8.9); NEUTROPHILS % (AUTO) 79.3 % (43.0-81.0); PLATELET COUNT (AUTO) 516 /CMM (150-450); RDW COEFFICIENT OF VARIATION 15.1 (11.5-15.0); RED BLOOD CELL COUNT(AUTO) 2.59 MIL/uL (4.5-6.0); WHITE BLOOD COUNT (AUTO) 10.3 K/uL (4.3-11.0)
[2018-01-23 16:00] VITALS: BP 150/91
[2018-01-23] MEDS: MIRTAZAPINE 15 MG TABLET PO SCH (17:54)
[2018-01-23] MEDS: DOCUSATE SODIUM LIQ 100 MG/10 ML UDC NG SCH (17:55)
[2018-01-23] MEDS: MAGNESIUM HYDROXIDE 30 ML UDC PO PRN (18:05)
[2018-01-23] MEDS: LIDOCAINE 5% (PATCH) 1 EA PATCH TP SCH (19:30)
[2018-01-23 20:00] VITALS: BP 117/67
--- NOTE | 2018-01-23 20:00 | NUR ---
RN NOTE PATIENT IS ALERT/ORIENTED X 4, REFUSED REPOSITIONING AND REFUSED DRESSING CHANGE. EXPLAINED TO PATIENT NECESSITY TO ASSESS WOUNDS. PATIENT STILL REFUSED, WILL CONTINUE TO OFFER .
--- NOTE | 2018-01-23 20:51 | NUR ---
RN NOTE PAIN IN BOTH SHOULDERS 07/04, NOTIFIED ANU Blanco VIA PHONE, NEW ORDER OF MEDICATION GIVEN AND CARRIED OUT, WILL CONTINUE TO MONITOR PATIENT
[2018-01-23] MEDS ORDERED: HYDROMORPHONE INJ 2 MG/ML DISP.SYRIN IV ONE (21:00)
[2018-01-24] VITALS: BP 115/68
[2018-01-24] MEDS: VANCOMYCIN 1 GM in IV NS 0.9% 250 ML IV SCH ×2 (01:50→12:35)
[2018-01-24] MEDS: HYDROGEL DRESSING 90 GM TUBE TP SCH ×2 (01:51→15:14)
[2018-01-24] MEDS: HYDROCODONE/APAP 5/325MG 1 EACH TABLET PO PRN ×6 (01:54→23:45)
[2018-01-24] MEDS: IV NS 0.9% 1,000 ML IV PRN ×2 (02:05→11:29)
[2018-01-24] MEDS: FENTANYL PF 100MCG/2ML AMPUL IV PRN ×5 (02:51→20:18)
[2018-01-24] MEDS: oxyCODONE IR immediate release 5 MG PO PRN ×2 (03:49→17:47)
[2018-01-24 04:00] VITALS: BP 115/57
[2018-01-24] MEDS: MAGNESIUM HYDROXIDE 30 ML UDC PO PRN ×2 (04:26→21:27)
[2018-01-24] MEDS: CEFEPIME 2 GM in IV D5W 100 ML IV SCH ×3 (04:26→21:21)
[2018-01-24] MEDS: ACETAMINOPHEN 325 MG TABLET PO PRN (05:17)
--- NOTE | 2018-01-24 06:18 | NUR ---
RN CLOSING NOTES: NO RESPIRATORY DISTRESS NOTED, MECHANICAL VENTILATOR TOLERATES WELL. SR ON THE MONITOR. AM LABS COLLECTED, PENDING RESULTS. IV ACCESS REMAINED INTACT. FC INTACT, DRAINS URINE WELL. ALL SAFETY MEASURES TAKEN. MOTHER REMAINED AT BEDSIDE WITH THE PATIENT. T PATIENT REMAINED REFUSING SKIN ASSESSMENTS, BED BATH "I WOULD LIKE TO DO IT LATER NOT AT NIGHT, I DONT WANT TO BE TOUCHED. EXPLAINED TO PATIENT RISKS AND BENEFITS. PATIENT STILL REFUSING. CONTINUOUSLY MONITORED. WILL ENDORSE TO AM SHIFT RN.
[2018-01-24 07:17] LABS: CALCIUM, SERUM 8.6 mg/dL (8.5-10.1); CREATININE 0.3 mg/dL (0.6-1.3); POTASSIUM 3.5 mmol/L (3.5-5.1)
[2018-01-24] MEDS: ACETYLCYSTEINE 10% SOLN 400 MG/4 ML VIAL NEB SCH ×3 (07:35→23:25)
--- NOTE | 2018-01-24 07:45 | NUR ---
RN INITIAL NOTES: Received in bed, alert, awake and oriented. Mech vent in place. Wants stronger pain medication stated both shoulders hurt and pain medicine is not effective. VAISHNAVI Midline with IVF infusing. Breath sounds clear. GT clamped. generalized edema. generalized skin tattoos. bed low and locked. call light within reached. will continue to monitor.
[2018-01-24 08:00] VITALS: BP 108/63
[2018-01-24] MEDS: ENSURE ENLIVE CHOC 237 ML CAN PO SCH ×3 (08:27→17:00)
[2018-01-24] MEDS: GABAPENTIN 100 MG CAPSULE PO SCH ×3 (08:28→17:42)
[2018-01-24] MEDS: PANTOPRAZOLE 40 MG VIAL IV SCH (08:28)
[2018-01-24] MEDS: LACTOBACILLUS RHAMNOSUS GG 1 EACH CAP.SPRINK PO SCH (08:28)
[2018-01-24] MEDS: DOCUSATE SODIUM LIQ 100 MG/10 ML UDC NG SCH ×2 (08:28→17:43)
[2018-01-24] MEDS: LEVETIRACETAM SOL (5 ML) 100 MG/ML UDC PO SCH ×2 (08:28→21:27)
[2018-01-24] MEDS: MULTIVITAMINS,THERAGRAN 1 UDTAB TABLET PO SCH (08:28)
[2018-01-24] MEDS: ENOXAPARIN SODIUM 40 MG/0.4 ML DISP.SYRIN SQ SCH (08:30)
--- NOTE | 2018-01-24 08:53 | NUR ---
RN NOTES: Prepared all 9 am meds including [place] pain med but accidentally spilled. Restarted all GT meds including pain medicine [place].
[2018-01-24] MEDS: TRAMADOL HCL 50 MG TABLET PO SCH ×2 (09:00→17:44)
[2018-01-24 12:00] VITALS: BP 125/75
--- NOTE | 2018-01-24 12:00 | NUR ---
RN NOTES: OFFERED TO ASSIST WITH FEEDING BUT REFUSED. OFFERED TO CHANGE WOUND DRESSING BUT REFUSED. REFUSED TO BE REPOSITIONED. MEDICATED FOR PAIN REQUESTED ORDERED. WILL CONT TO MONITOR.
[2018-01-24] MEDS ORDERED: CEFE2FRO IV (15:36)
[2018-01-24] MEDS ORDERED: VANC1PLA11 IV (15:36)
[2018-01-24 16:00] VITALS: BP 117/71
--- NOTE | 2018-01-24 16:00 | NUR ---
RN NOTES: OFFERED TO HAVE WOUND DRESSING CHANGE BUT REFUSED. EDUCATED PT IF DRESSING CHANGE NOT DONE, POSSIBLE WOUND INFECTION MAY HAPPEN. PT STATED WILL NOTIFY RN WHEN READY. WILL CONT TO MONITOR.
--- NOTE | 2018-01-24 18:00 | NUR ---
RN CLOSING NOTES: NOTIFIED PT OF [facility]SF[facility] TO [facility] AND PT REFUSING. NOTIFIED ELECTRICAL INSTRUMENT TECHNICIAN AND CN. ATTEMPTED TO GIVE REPORT TO RN IN [facility] BUT STATED THAT PT IS NOT APPROVED TO THEIR FACILITY YET. NOTIFIED CM AND CN AND ORDER FOR TRANSFER WAS PUT ON HOLD. NOTIFIED PT. PT IS HAPPY. NOTIFIED NIGHT RN OF PT REFUSAL TO HAVE WOUND DRESSING CHANGED.
[2018-01-24 20:00] VITALS: BP 132/52
--- NOTE | 2018-01-24 20:00 | NUR ---
RN INITIAL NOTES Received bedside report. pt in bed, alert,oriented, awake. Mech vent in place, vent settings are tolerating well. Wants stronger pain medication stated both shoulders hurt and pain medicine is not effective. VAISHNAVI Midline in place, intact, patient. Breath sounds clear throughout. F/C in place. GT clamped. generalized edema. generalized skin tattoos. bed low and locked. call light within reached. will continue to monitor.
[2018-01-24] MEDS ORDERED: MIRTAZAPINE 15 MG TABLET PO SCH (22:00)
[2018-01-25] VITALS: BP 127/72
[2018-01-25] MEDS: VANCOMYCIN 1 GM in IV NS 0.9% 250 ML IV SCH ×2 (01:18→14:50)
--- NOTE | 2018-01-25 02:00 | NUR ---
RN NOTES PATIENT IN BED AND REFUSES WOUND TREATMENT AT THIS TIME. WILL TRY LATER.
[2018-01-25] MEDS: FENTANYL PF 100MCG/2ML AMPUL IV PRN ×4 (02:11→16:26)
[2018-01-25] MEDS: HYDROGEL DRESSING 90 GM TUBE TP SCH ×2 (02:19→13:32)
[2018-01-25 04:00] VITALS: BP 127/76
[2018-01-25] MEDS: CEFEPIME 2 GM in IV D5W 100 ML IV SCH ×2 (06:07→13:25)
[2018-01-25 06:28] LABS: BASOPHILS % (AUTO) 0.4 % (0.0-2.0); EOSINOPHILS % (AUTO) 2.2 % (0.0-6.0); HEMATOCRIT 24 % (39-51); HEMOGLOBIN 8.1 g/dL (13.5-17.5); LYMPHOCYTES # (AUTO) 1.4 /CMM (0.8-4.8); LYMPHOCYTES % (AUTO) 11.9 % (20.0-44.0); MEAN CORPUSCULAR HGB CONC 33 g/dl (31.0-36.0); MEAN CORPUSCULAR VOLUME 88 fL (80-96); MONOCYTES # (AUTO) 0.6 /CMM (0.1-1.30); MONOCYTES % (AUTO) 5.2 % (2.0-12.0); NEUTROPHILS # (AUTO) 9.6 /CMM (1.8-8.9); NEUTROPHILS % (AUTO) 80.3 % (43.0-81.0); PLATELET COUNT (AUTO) 484 /CMM (150-450); RDW COEFFICIENT OF VARIATION 15.3 (11.5-15.0); RED BLOOD CELL COUNT(AUTO) 2.77 MIL/uL (4.5-6.0); WHITE BLOOD COUNT (AUTO) 11.9 K/uL (4.3-11.0)
--- NOTE | 2018-01-25 06:30 | NUR ---
RN NOTES: PATIENT WAS OFFERED TO HAVE WOUND DRESSING CHANGE BUT REFUSED. PT IS EDUCATED IF DRESSING CHANGE NOT DONE, POSSIBLE WOUND INFECTION MAY HAPPEN. PT STATED THAT HE WILL NOTIFY RN WHEN READY. NO ACUTE CHANGES NOTED AT THIS TIME. PT COMPLAIN OF PAIN AND ASKED FOR MORE MEDICATION. CARE WILL BE ENDORSE TO AM NURSE.
[2018-01-25 06:37] LABS: CALCIUM, SERUM 9.1 mg/dL (8.5-10.1); CREATININE 0.3 mg/dL (0.6-1.3); POTASSIUM 3.6 mmol/L (3.5-5.1)
[2018-01-25] MEDS: ACETYLCYSTEINE 10% SOLN 400 MG/4 ML VIAL NEB SCH ×2 (07:27→14:47)
--- NOTE | 2018-01-25 07:45 | NUR ---
RN NOTE RECEIVED PATIENT IN BED. ALERT AND ORIENTED X 3, HE IS ABLE TO MOUTH HIS WORDS. ON VENT/TRACH SETTING ORDERED AND SATURATING WELL. NO DISTRESS NOTED AT THIS TIME. ON COUPON REDEMPTION CLERK SINUS RHYTHM HR OF 74. LEFT UPPER MIDLINE SITE INTACT AND PATENT. HEAD OF BED ELEVATED FOR COMFORT. F/C INTACT AND PATENT WITH ADEQUATE FLOW OF URINE. GT SITE INTACT AND PATENT AND CLAMPED AT THIS TIME, IT IS USED FOR MEDICATIONS ONLY. PROVIDED COMFORT AND SAFETY MEASURES. BED LOW AND LOCKED POSITION. PLACED CALL LIGHT WITHIN REACH. WILL CONTINUE TO MONITOR
[2018-01-25 08:00] VITALS: BP 135/78
[2018-01-25] MEDS ORDERED: LIDOCAINE 5% (PATCH) 1 EA PATCH TP SCH ×2 (08:00→09:00)
[2018-01-25] MEDS: LEVETIRACETAM SOL (5 ML) 100 MG/ML UDC PO SCH (08:27)
[2018-01-25] MEDS: LACTOBACILLUS RHAMNOSUS GG 1 EACH CAP.SPRINK PO SCH (08:27)
[2018-01-25] MEDS: DOCUSATE SODIUM LIQ 100 MG/10 ML UDC NG SCH ×2 (08:27→16:24)
[2018-01-25] MEDS: PANTOPRAZOLE 40 MG VIAL IV SCH (08:27)
[2018-01-25] MEDS: GABAPENTIN 100 MG CAPSULE PO SCH ×3 (08:28→16:24)
[2018-01-25] MEDS: MULTIVITAMINS,THERAGRAN 1 UDTAB TABLET PO SCH (08:28)
[2018-01-25] MEDS: TRAMADOL HCL 50 MG TABLET PO SCH ×2 (08:28→16:25)
[2018-01-25] MEDS: HYDROCODONE/APAP 5/325MG 1 EACH TABLET PO PRN (08:28)
[2018-01-25] MEDS: ENSURE ENLIVE CHOC 237 ML CAN PO SCH ×3 (08:28→16:26)
[2018-01-25] MEDS: ENOXAPARIN SODIUM 40 MG/0.4 ML DISP.SYRIN SQ SCH (08:29)
[2018-01-25] MEDS ORDERED: ESCITALOPRAM OXALATE (10 MG) 10 MG TABLET PO SCH (09:00)
[2018-01-25 12:00] VITALS: BP 120/69
[2018-01-25] MEDS: oxyCODONE IR immediate release 5 MG PO PRN ×2 (13:22→19:15)
--- NOTE | 2018-01-25 15:09 | NUR ---
PT REFUSED INLINE BREATHING TX. Addendum: 01/25/18 at 1510 by BLADIMIR GREWAL RT Amended: Links added.
[2018-01-25 16:00] VITALS: BP 137/83
--- NOTE | 2018-01-25 17:50 | NUR ---
RN NOTE CALLED [facility] SPOKE TO SAMIR SEBASTIAN REPORT GIVEN AND ETA OF CONSULTING SYSTEMS ENGINEER FOR PATIENTS DISCHARGE
--- NOTE | 2018-01-25 19:20 | NUR ---
RN NOTE 27 YEAR OLD MALE DISCHARGED TO HOME IN STABLE CONDITION, COMPLIANT WITH MEDICATIONS, COOPERATIVE WITH TREATMENT PLANS. MEDICAL TREATMENTS PLANS DEFERRED FOR CONTINUAL MONITORING. EDUCATED PATIENT AND DAUGHTER ABOUT AFTER CARE AND COPIES PROVIDED. RETURNED PERSONAL BELONGINGS TO PATIENTS DAUGHTER. MEDICATION RECONCILED. RE[facility] TO [facility] FOR CONTINUITY OF CARE. LEFT UPPER MIDLINE INTACT AND PATENT AND WILL CONTINUE ABX AT [facility]. WOUND PICTURES TAKEN AND DOCUMENTED IN CHART. PATIENT LEFT THE UNIT AT 1930 VIA AMBULANCE
[2018-03-27] MEDS ORDERED: IPRA3AMP23 IH ×2 (11:44)
== END 2018-01-25 19:20 | DRG 710 ==
LOC: ER 21:16 → TELE-TD 01-16 01:12 → TELE1 01-18 10:55
PROVIDERS: ADMIT Internal Medicine; ATTEND Nurse Practitioner Acute Care
PROC: 05H633Z Insertion of Infusion Device into Left Subclavian Vein, Percutaneous Approach (ICD-10-PCS; 2018-01-16)
PROC: 0KBT0ZZ Excision of Left Lower Leg Muscle, Open Approach (ICD-10-PCS; 2018-01-16)
PROC: B547ZZA Ultrasonography of Left Subclavian Vein, Guidance (ICD-10-PCS; 2018-01-16)
PROC: 5A1955Z Respiratory Ventilation, Greater than 96 Consecutive Hours (ICD-10-PCS; principal; 2018-01-17)
PROC: 0QBG0ZZ Excision of Right Tibia, Open Approach (ICD-10-PCS; principal; 2018-01-17)
PROC: 0QB10ZZ Excision of Sacrum, Open Approach (ICD-10-PCS; 2018-01-22)
DX: A41.9 Sepsis, unspecified organism (principal); J15.6 Pneumonia due to other Gram-negative bacteria; G82.50 Quadriplegia, unspecified; E43 Unspecified severe protein-calorie malnutrition; J15.9 Unspecified bacterial pneumonia; L89.024 Pressure ulcer of left elbow, stage 4; L89.894 Pressure ulcer of other site, stage 4; L89.154 Pressure ulcer of sacral region, stage 4; K92.2 Gastrointestinal hemorrhage, unspecified; J96.11 Chronic respiratory failure with hypoxia; Z93.0 Tracheostomy status; D64.9 Anemia, unspecified; G40.909 Epilepsy, unspecified, not intractable, without status epilepticus; N39.0 Urinary tract infection, site not specified; Z99.11 Dependence on respirator [ventilator] status; R13.10 Dysphagia, unspecified; Z93.1 Gastrostomy status; W34.00XS Accidental discharge from unspecified firearms or gun, sequela; Z87.440 Personal history of urinary (tract) infections; Z81.8 Family history of other mental and behavioral disorders; Z79.899 Other long term (current) drug therapy; F32.9 Major depressive disorder, single episode, unspecified; M86.9 Osteomyelitis, unspecified; F41.9 Anxiety disorder, unspecified; T14.8XXS Other injury of unspecified body region, sequela; G89.29 Other chronic pain; D68.59 Other primary thrombophilia; F43.21 Adjustment disorder with depressed mood; B95.2 Enterococcus as the cause of diseases classified elsewhere; Y95 Nosocomial condition; Z91.19 Patient's noncompliance with other medical treatment and regimen
CPT/HCPCS: 31720; 36415; 71045-TC; 72125-TC; 73030-TC; 80048-TC; 80053-TC; 80061-TC; 80076-TC; 80202-TC; 81000-TC; 82272-TC; 83540-TC; 83605-TC; 83690-TC; 83735-TC; 84100-TC; 84134-TC; 84484-TC; 85025-TC; 85730-TC; 87040-TC; 87070-TC; 87081-TC; 87086-TC; 87186-TC; 94002-TC; 94003-TC; 94760-TC; 99082-TC; A4606; A4623; A6248; A6253; A6402; A6403; C9113; J0692; J1170; J1650; J1953; J2270; J2405; J2916; J3010; J3370; J3475; J3490; J7030; J7050; J7060; Z7610

== ENCOUNTER 2018-01-29 16:22 | Emergency (ER) | payer OTHER ==
[~2018-01-29] VITALS: Ht 165.1 cm; Wt 63.5 kg
[~2018-01-29 16:22] MED LIST changes: +CEFE2FRO IV; +LIDO30AD10 TP; +OXYC5CAP18 PO; +VANC1PLA11 IV
--- NOTE | 2018-01-29 16:30 | NUR ---
SIA FROM [facility] FOR CHRONIC NECK AND BACK PAIN. ON VENT WITH THE FOLLOWING SETTINGS: AC=16; IV=800; PEEP=5 AND FIO2=40%. RR IS EVEN AND UNLABORED WITH NAD NOTED. SKIN IS WARM AND DRY. AWAITING MD FOR EVAL.
--- NOTE | 2018-01-29 16:40 | NUR ---
DR SALAZAR AT BS FOR EVAL.
--- NOTE | 2018-01-29 16:50 | NUR ---
DR NADER GUAN
--- NOTE | 2018-01-29 17:09 | NUR ---
DR SALAZAR MADE AWARE THAT BP IS LOW 78/44, DR SALAZAR STATES THAT "IT CAN BE MANAGE IN THE FACILITY".
[2018-01-29 17:12] VITALS: BP 111/65
--- NOTE | 2018-01-29 17:14 | NUR ---
RT NOTE PT PLACED ON VENT PER MD ORDER. SETTINGS ENDORSED BY TRANSPORT RT AC 16 500 40% +5. PT HAS PORTEX [address] CUFF INFLATED BY COTTON BALER. ALARMS SET PER PROTOCOL AND AUDIBLE. VENT PLUGGED IN TO RED OUTLET. AMBU BAG AT BED SIDE. NO DISTRESS NOTED AT MOMENT. WILL CONTINUE TO MONITOR. Addendum: 01/29/18 at 1716 by MANJU HERRON RT Amended: Links added.
--- NOTE | 2018-01-29 17:50 | NUR ---
DR SALAZAR TALKING TO THE FAMILY AT BS
--- NOTE | 2018-01-29 18:07 | NUR ---
DR DOE'S OFFICE IS CALLED AGAIN FOR DR SALAZAR , KOREY BLANDON OPTICAL INSTRUMENT ASSEMBLY SUPERVISOR MANAGER METROLOGY
--- NOTE | 2018-01-29 18:20 | NUR ---
DR SALAZAR MADE AWARE THAT THE FACILITY WILL NOT ACCEPT THE PATIENT D/T LOW BP=87/50.
--- NOTE | 2018-01-29 18:32 | NUR ---
[facility] REFUSING PATIENT 2/2 LOW BP, EVEN THOUGH PATIENT IS DNR AND QUADRIPLEGIC AND LOB BP IS A BASELINE FOR THE PATIENT. ORALIA SQUIRES FROM [facility] REFUSED TO ACCEPT THE PATIENT AFTER DR SALAZAR SPOKE TO HIM ON A PHONE.
[2018-01-29] MEDS: IV NS 0.9% 500 ML BAG IV ONE (18:47)
--- NOTE | 2018-01-29 18:48 | NUR ---
SPOKE TO NURSING PHARMACY INNOVATION ASSISTANT AND REQUESTED A TELE BED FOR THIS PT.
[2018-01-29] MEDS ORDERED: AMIN30LI2 GT (18:55)
[2018-01-29] MEDS ORDERED: OXYC5TAB3 GT (18:55)
[2018-01-29] MEDS ORDERED: LIDO30AD10 TP (18:55)
[2018-01-29] MEDS ORDERED: LEVE100S GT (18:55)
[2018-01-29] MEDS ORDERED: ZINC220C8 GT (18:55)
--- NOTE | 2018-01-29 19:01 | NUR ---
RECEIVED REPORT FROM ROMULO HAMILTON FOR KEREN.
--- NOTE | 2018-01-29 19:10 | NUR ---
PT APPEARS COMFORTABLE. PT CONNECTED TO VENT WITH PRESCRIBED SETTINGS AX 16 FI02 40% TV 500 PEEP 5. FAMILY AT BEDSIDE.
--- NOTE | 2018-01-29 19:15 | NUR ---
SPOKE TO CASSANDRA LUCIO VIOLENT CRIMES DETECTIVE. PER JESSICA TRUJILLO CASTING WHEEL OPERATOR AT [facility] IS OK TO ACCEPT PATIENT BACK.
--- NOTE | 2018-01-29 19:19 | NUR ---
DR. SALAZAR SPEAKING TO PT FAMILY REGARDING POC.
--- NOTE | 2018-01-29 20:06 | NUR ---
REPORT GIVEN TO [facility] EMT FOR KEREN. PT APPEARS COMFORTABLE. FAMILY AWARE PT WILL BE TRANSFERRED BACK TO FACILITY. MIDLINE INTACT AND PATENT. NO S/S INFECTION OF INFILTRAITON NOTED,
[2018-01-29 20:09] VITALS: BP 95/63
[2018-03-27] MEDS ORDERED: IPRA3AMP23 IH ×2 (11:44)
== END 2018-01-29 20:10 | disposition home or self-care (01) ==
LOC: ER 16:25
DX: G82.50 Quadriplegia, unspecified (principal); M79.1 Myalgia; G40.909 Epilepsy, unspecified, not intractable, without status epilepticus; F32.9 Major depressive disorder, single episode, unspecified; Z99.11 Dependence on respirator [ventilator] status
CPT/HCPCS: A4606; J7040; Z7610

== ENCOUNTER 2018-03-27 10:38 | Inpatient (IN) | payer OTHER ==
[~2018-03-27] VITALS: Ht 177.8 cm; Wt 69.9 kg
[2018-03-27] VITALS (7 sets, daily range): BP systolic 85–110; BP diastolic 49–78
[~2018-03-27 10:38] MED LIST changes: -ALBU2.5V13 NEB; +AMIN30LI2 GT; -CEFE2FRO IV; -IBUP-1953 PO; +LEVE100S GT; -LEVE500T9 PO; -OXYC5CAP18 PO; +OXYC5TAB3 GT; -VANC1PLA11 IV; +ZINC220C8 GT
[2018-03-27] MEDS ORDERED: PANTOPRAZOLE 80 MG in IV NS 0.9% 100 ML IV ONE (11:00)
[2018-03-27] MEDS ORDERED: IV NS 0.9% 1,000 ML BAG IV ONE (11:00)
[2018-03-27 11:08] LABS: BASOPHILS % (AUTO) 0.4 % (0.0-2.0); EOSINOPHILS % (AUTO) 0.8 % (0.0-6.0); HEMATOCRIT 21 % (39-51); HEMOGLOBIN 7.4 g/dL (13.5-17.5); LYMPHOCYTES # (AUTO) 0.9 /CMM (0.8-4.8); LYMPHOCYTES % (AUTO) 7.5 % (20.0-44.0); MEAN CORPUSCULAR HEMOGLOBIN 30 PG (26.0-33.0); MEAN CORPUSCULAR HGB CONC 34 g/dl (31.0-36.0); MEAN CORPUSCULAR VOLUME 87 fL (80-96); MONOCYTES # (AUTO) 0.6 /CMM (0.1-1.30); MONOCYTES % (AUTO) 4.9 % (2.0-12.0); NEUTROPHILS # (AUTO) 10.4 /CMM (1.8-8.9); NEUTROPHILS % (AUTO) 86.4 % (43.0-81.0); PLATELET COUNT (AUTO) 430 /CMM (150-450); RDW COEFFICIENT OF VARIATION 14.4 (11.5-15.0); RED BLOOD CELL COUNT(AUTO) 2.45 MIL/uL (4.5-6.0)
[2018-03-27 11:12] LABS: APPEARANCE,URINE Cloudy (CLEAR); BILIRUBIN,URINE Negative (NEGATIVE); BLOOD, URINE Moderate Ery/uL (NEGATIVE); COLOR,URINE Yellow (YELLOW); KETONES,URINE Negative (NEGATIVE); LEUKOCYTE ESTERASE ,URINE Moderate (NEGATIVE); NITRITE, URINE Positive (NEGATIVE); PROTEIN,URINE 100 mg/dl (NEGATIVE); UGLUCOSE Negative (NEGATIVE); UROBILINOGEN,URINE 0.2 EU/dL (0.2)
[2018-03-27 11:17] LABS: CALCIUM, SERUM 8.6 mg/dL (8.5-10.1); CARBON DIOXIDE 32 mmol/L (21-32); CHLORIDE 100 mmol/L (98-107); CREATININE 0.4 mg/dL (0.6-1.3); GLUCOSE 127 mg/dL (74-106); POTASSIUM 3.7 mmol/L (3.5-5.1); SODIUM SERUM 136 mmol/L (136-145); UREA NITROGEN, BLOOD 14 mg/dL (7-18)
[2018-03-27 11:20] LABS: BACTERIA,URINE Moderate /HPF (None Seen); SQUAMOUS EPITHELIAL CELL,UR Rare /HPF (None Seen); WBC,URINE 21-50 /HPF (0-3)
[2018-03-27 11:24] LABS: INR 1.12 (0.85-1.15)
[2018-03-27 11:25] LABS: TROPONIN I < 0.017 ng/mL (0.00-0.056)
[2018-03-27 11:29] LABS: ALANINE AMINOTRANSFERASE 47 U/L (12-78); ALBUMIN 1.5 g/dL (3.4-5.0); ALKALINE PHOSPHATASE 139 U/L (46-116); ASPARTATE AMINOTRANSFERASE 24 U/L (15-37); BILIRUBIN,DIRECT 0.1 mg/dL (0.0-0.2); BILIRUBIN,TOTAL 0.2 mg/dL (0.2-1.0); TOTAL PROTEIN, SERUM 6.7 g/dL (6.4-8.2)
[2018-03-27] MEDS ORDERED: FERR220S6 GT (11:44)
[2018-03-27] MEDS ORDERED: CRAN425C6 GT (11:44)
[2018-03-27] MEDS ORDERED: RIVA10TA GT (11:44)
[2018-03-27] MEDS ORDERED: ASCO500T9 PO (11:44)
[2018-03-27] MEDS ORDERED: [UNRECOGNIZED DRUG - OTHER] PO (11:44)
[2018-03-27] MEDS ORDERED: GABA-534 GT (11:44)
[2018-03-27] MEDS ORDERED: HYDR-552 PO (11:44)
[2018-03-27] MEDS ORDERED: CRAN3875 GT (11:44)
[2018-03-27] MEDS ORDERED: IPRA3AMP IH ×2 (11:44)
[2018-03-27] MEDS ORDERED: VANCOMYCIN 1 GM in IV D5W 250 ML IV ONE (12:00)
[2018-03-27] MEDS ORDERED: MEROPENEM 1,000 MG in IV NS 0.9% 100 ML IV ONE (12:00)
[2018-03-27] MEDS ORDERED: FEE PK DOSING 1 MIN EA MC ONE (13:27)
[2018-03-27] MEDS: IV NS 0.9% 1,000 ML IV PRN (13:30)
[2018-03-27] MEDS ORDERED: MAG HYDROX/AL HYDROX/SIMETH 30 ML UDC PO PRN (13:30)
[2018-03-27] MEDS ORDERED: ACETAMINOPHEN 325 MG TABLET PO PRN (13:30)
[2018-03-27] MEDS ORDERED: HYDROCODONE/APAP 10/325MG 1 EA TABLET PO PRN (13:30)
[2018-03-27] MEDS ORDERED: MAGNESIUM HYDROXIDE 30 ML UDC PO PRN ×2 (13:30)
[2018-03-27] MEDS ORDERED: ZOLPIDEM TARTRATE 5 MG TABLET GT PRN (13:30)
[2018-03-27] MEDS ORDERED: ONDANSETRON HCL/PF 4 MG/2 ML VIAL IVP PRN (13:30)
[2018-03-27] MEDS ORDERED: HYDROCODONE/APAP 10/325MG 1 EA TABLET GT PRN (13:50)
[2018-03-27] MEDS: GABAPENTIN 100 MG CAPSULE GT SCH ×2 (14:15→17:03)
[2018-03-27] MEDS: MORPHINE SULFATE INJ 4 MG/ML DISP.SYRIN IV PRN ×2 (14:15→21:40)
[2018-03-27] MEDS ORDERED: GABAPENTIN 100 MG CAPSULE GT SCH (17:00)
[2018-03-27] MEDS: HYDROCODONE/APAP 5/325MG 1 EACH TABLET GT SCH (17:02)
[2018-03-27] MEDS: FERROUS SULFATE UDC 300 MG/5 ML UDC GT SCH (17:02)
[2018-03-27] MEDS: DOCUSATE SODIUM LIQ 100 MG/10 ML UDC GT SCH (17:02)
[2018-03-27] MEDS: LEVETIRACETAM SOL (5 ML) 100 MG/ML UDC GT SCH (17:02)
[2018-03-27] MEDS ORDERED: IV NS 0.9% 2,000 ML IV ONE (20:00)
[2018-03-27] MEDS ORDERED: IV NS 0.9% 1,000 ML IV PRN (20:30)
[2018-03-27] MEDS: VANCOMYCIN 1 GM in IV D5W 250 ML IV SCH (20:47)
[2018-03-27] MEDS: MEROPENEM 500 MG in IV NS 0.9% 50 ML IV SCH (20:47)
[2018-03-27] MEDS: GABAPENTIN 300 MG CAPSULE GT SCH (21:34)
[2018-03-27] MEDS: MIRTAZAPINE 15 MG TABLET GT SCH (21:34)
[2018-03-27] MEDS ORDERED: RIVAROXABAN 10 MG TABLET GT SCH (22:00)
[2018-03-28] VITALS (19 sets, daily range): BP systolic 95–126; BP diastolic 47–72
[2018-03-28] MEDS: HYDROCODONE/APAP 5/325MG 1 EACH TABLET GT SCH ×6 (00:31→23:32)
[2018-03-28] MEDS: ACETAMINOPHEN 650 MG/20.3 ML UDC GT PRN ×3 (00:37→23:29)
[2018-03-28] MEDS: MEROPENEM 500 MG in IV NS 0.9% 50 ML IV SCH ×3 (04:36→20:51)
[2018-03-28] MEDS: VANCOMYCIN 1 GM in IV D5W 250 ML IV SCH ×3 (04:36→23:31)
[2018-03-28] MEDS: MORPHINE SULFATE INJ 4 MG/ML DISP.SYRIN IV PRN ×4 (04:36→23:58)
[2018-03-28] MEDS: IV NS 0.9% 1,000 ML IV PRN (04:50)
[2018-03-28 06:49] LABS: CALCIUM, SERUM 8.4 mg/dL (8.5-10.1); CREATININE 0.3 mg/dL (0.6-1.3); PHOSPHORUS 3.4 mg/dL (2.5-4.9); POTASSIUM 3.4 mmol/L (3.5-5.1)
[2018-03-28 07:13] LABS: BASOPHILS % (AUTO) 0.4 % (0.0-2.0); EOSINOPHILS % (AUTO) 2.8 % (0.0-6.0); LYMPHOCYTES # (AUTO) 1.1 /CMM (0.8-4.8); LYMPHOCYTES % (AUTO) 14.4 % (20.0-44.0); MEAN CORPUSCULAR HEMOGLOBIN 29 PG (26.0-33.0); MEAN CORPUSCULAR HGB CONC 33 g/dl (31.0-36.0); MEAN CORPUSCULAR VOLUME 90 fL (80-96); MONOCYTES # (AUTO) 0.6 /CMM (0.1-1.30); MONOCYTES % (AUTO) 7.9 % (2.0-12.0); NEUTROPHILS # (AUTO) 5.5 /CMM (1.8-8.9); NEUTROPHILS % (AUTO) 74.5 % (43.0-81.0); PLATELET COUNT (AUTO) 317 /CMM (150-450); RDW COEFFICIENT OF VARIATION 15.3 (11.5-15.0); WHITE BLOOD COUNT (AUTO) 7.4 K/uL (4.3-11.0)
[2018-03-28 07:22] LABS: RED BLOOD CELL COUNT(AUTO) 1.98 MIL/uL (4.5-6.0)
[2018-03-28 07:24] LABS: HEMATOCRIT 18 % (39-51); HEMOGLOBIN 5.8 g/dL (13.5-17.5)
[2018-03-28 08:13] LABS: EOSINOPHILS % (MANUAL) 2 % (0-4); LYMPHOCYTES % (MANUAL) 11 % (16-48); MONOCYTES % (MANUAL) 7 % (0-11.0); NEUTROPHILS % (MANUAL) 80 (42-76)
[2018-03-28] MEDS: DOCUSATE SODIUM LIQ 100 MG/10 ML UDC GT SCH ×2 (08:19→16:37)
[2018-03-28] MEDS: GABAPENTIN 100 MG CAPSULE GT SCH ×3 (08:19→16:37)
[2018-03-28] MEDS: FERROUS SULFATE UDC 300 MG/5 ML UDC GT SCH ×2 (08:19→16:37)
[2018-03-28] MEDS: LEVETIRACETAM SOL (5 ML) 100 MG/ML UDC GT SCH ×2 (08:19→16:37)
[2018-03-28] MEDS: ASCORBIC ACID 500 MG TABLET GT SCH (08:23)
[2018-03-28] MEDS: MULTIVITAMINS,THERAGRAN 1 UDTAB TABLET GT SCH (08:23)
[2018-03-28] MEDS ORDERED: diphenhydrAMINE HCL 50 MG/ML VIAL IV ONE (08:30)
[2018-03-28] MEDS ORDERED: PANTOPRAZOLE 40 MG VIAL IV SCH (09:00)
[2018-03-28] MEDS: POTASSIUM CL. PREMIX PERIPHER. 50 ML IV SCH ×2 (11:06→12:06)
[2018-03-28 13:53] LABS: IRON, SERUM 12 ug/dl (50-175); TOTAL IRON BINDING CAPACITY 114 ug/dl (250-450)
[2018-03-28 14:06] LABS: FERRITIN 522 ng/mL (8-388)
[2018-03-28] MEDS: PANTOPRAZOLE 40 MG VIAL IV SCH (16:42)
[2018-03-28] MEDS: GABAPENTIN 300 MG CAPSULE GT SCH (21:58)
[2018-03-28] MEDS: MIRTAZAPINE 15 MG TABLET GT SCH (21:58)
[2018-03-29] VITALS (7 sets, daily range): BP systolic 101–129; BP diastolic 52–76
[2018-03-29] MEDS: MORPHINE SULFATE INJ 4 MG/ML DISP.SYRIN IV PRN ×5 (04:17→20:16)
[2018-03-29] MEDS: MEROPENEM 500 MG in IV NS 0.9% 50 ML IV SCH ×3 (04:42→20:17)
[2018-03-29] MEDS: IV NS 0.9% 1,000 ML IV PRN (04:50)
[2018-03-29] MEDS: HYDROCODONE/APAP 5/325MG 1 EACH TABLET GT SCH ×4 (05:14→23:11)
[2018-03-29 07:11] LABS: BASOPHILS # (AUTO) 0.1 /CMM (0.0-0.2); BASOPHILS % (AUTO) 0.8 % (0.0-2.0); EOSINOPHILS % (AUTO) 2.5 % (0.0-6.0); HEMATOCRIT 25 % (39-51); HEMOGLOBIN 8.3 g/dL (13.5-17.5); LYMPHOCYTES # (AUTO) 1.1 /CMM (0.8-4.8); LYMPHOCYTES % (AUTO) 12.7 % (20.0-44.0); MEAN CORPUSCULAR HEMOGLOBIN 30 PG (26.0-33.0); MEAN CORPUSCULAR HGB CONC 33 g/dl (31.0-36.0); MEAN CORPUSCULAR VOLUME 90 fL (80-96); MONOCYTES # (AUTO) 0.6 /CMM (0.1-1.30); NEUTROPHILS # (AUTO) 6.4 /CMM (1.8-8.9); PLATELET COUNT (AUTO) 359 /CMM (150-450); RDW COEFFICIENT OF VARIATION 15.3 (11.5-15.0); RED BLOOD CELL COUNT(AUTO) 2.79 MIL/uL (4.5-6.0); WHITE BLOOD COUNT (AUTO) 8.3 K/uL (4.3-11.0)
[2018-03-29 07:25] LABS: CALCIUM, SERUM 8.5 mg/dL (8.5-10.1); CREATININE 0.3 mg/dL (0.6-1.3); POTASSIUM 3.6 mmol/L (3.5-5.1)
[2018-03-29] MEDS: LEVETIRACETAM SOL (5 ML) 100 MG/ML UDC GT SCH ×2 (08:21→17:19)
[2018-03-29] MEDS: MULTIVITAMINS,THERAGRAN 1 UDTAB TABLET GT SCH (08:21)
[2018-03-29] MEDS: DOCUSATE SODIUM LIQ 100 MG/10 ML UDC GT SCH ×2 (08:21→17:19)
[2018-03-29] MEDS: FERROUS SULFATE UDC 300 MG/5 ML UDC GT SCH ×2 (08:21→17:19)
[2018-03-29] MEDS: VANCOMYCIN 1 GM in IV D5W 250 ML IV SCH ×3 (08:21→23:13)
[2018-03-29] MEDS: GABAPENTIN 100 MG CAPSULE GT SCH ×3 (08:21→17:19)
[2018-03-29] MEDS: PANTOPRAZOLE 40 MG VIAL IV SCH ×2 (08:22→17:19)
[2018-03-29] MEDS: ASCORBIC ACID 500 MG TABLET GT SCH (08:22)
[2018-03-29] MEDS ORDERED: Z GUARD REMEDY 2 OZ OINT TP PRN (11:00)
[2018-03-29] MEDS: DAKINS QUARTER STRENGTH (0.125%) 480 ML BOTTLE TOP SCH ×2 (11:08→21:15)
[2018-03-29] MEDS: MIRTAZAPINE 15 MG TABLET GT SCH (21:14)
[2018-03-29] MEDS: GABAPENTIN 300 MG CAPSULE GT SCH (21:14)
[2018-03-29] MEDS: ACETAMINOPHEN 650 MG/20.3 ML UDC GT PRN (22:07)
[2018-03-30] VITALS (7 sets, daily range): BP systolic 91–118; BP diastolic 45–68
[2018-03-30] MEDS: IV NS 0.9% 1,000 ML IV PRN ×2 (00:09→18:01)
[2018-03-30] MEDS: MORPHINE SULFATE INJ 4 MG/ML DISP.SYRIN IV PRN ×5 (00:16→19:34)
[2018-03-30] MEDS: MEROPENEM 500 MG in IV NS 0.9% 50 ML IV SCH ×2 (04:18→12:25)
[2018-03-30] MEDS: HYDROCODONE/APAP 5/325MG 1 EACH TABLET GT SCH ×4 (05:26→23:37)
[2018-03-30 06:28] LABS: BASOPHILS # (AUTO) 0.1 /CMM (0.0-0.2); BASOPHILS % (AUTO) 0.6 % (0.0-2.0); HEMATOCRIT 25 % (39-51); HEMOGLOBIN 8.3 g/dL (13.5-17.5); LYMPHOCYTES % (AUTO) 11.9 % (20.0-44.0); MEAN CORPUSCULAR HEMOGLOBIN 29 PG (26.0-33.0); MEAN CORPUSCULAR HGB CONC 33 g/dl (31.0-36.0); MEAN CORPUSCULAR VOLUME 89 fL (80-96); MONOCYTES # (AUTO) 0.6 /CMM (0.1-1.30); MONOCYTES % (AUTO) 6.9 % (2.0-12.0); NEUTROPHILS # (AUTO) 6.8 /CMM (1.8-8.9); NEUTROPHILS % (AUTO) 78.6 % (43.0-81.0); PLATELET COUNT (AUTO) 419 /CMM (150-450); RDW COEFFICIENT OF VARIATION 14.8 (11.5-15.0); RED BLOOD CELL COUNT(AUTO) 2.83 MIL/uL (4.5-6.0); WHITE BLOOD COUNT (AUTO) 8.6 K/uL (4.3-11.0)
[2018-03-30 06:55] LABS: CALCIUM, SERUM 8.5 mg/dL (8.5-10.1); CREATININE 0.3 mg/dL (0.6-1.3); MAGNESIUM 1.9 mg/dL (1.8-2.4); POTASSIUM 3.5 mmol/L (3.5-5.1)
[2018-03-30] MEDS: FERROUS SULFATE UDC 300 MG/5 ML UDC GT SCH ×2 (08:18→17:35)
[2018-03-30] MEDS: PANTOPRAZOLE 40 MG VIAL IV SCH ×2 (08:18→17:35)
[2018-03-30] MEDS: DOCUSATE SODIUM LIQ 100 MG/10 ML UDC GT SCH ×2 (08:18→17:34)
[2018-03-30] MEDS: LEVETIRACETAM SOL (5 ML) 100 MG/ML UDC GT SCH ×2 (08:18→17:34)
[2018-03-30] MEDS: ASCORBIC ACID 500 MG TABLET GT SCH (08:19)
[2018-03-30] MEDS: GABAPENTIN 100 MG CAPSULE GT SCH ×3 (08:19→17:35)
[2018-03-30] MEDS: MULTIVITAMINS,THERAGRAN 1 UDTAB TABLET GT SCH (08:19)
[2018-03-30] MEDS: ACETAMINOPHEN 650 MG/20.3 ML UDC GT PRN (08:19)
[2018-03-30] MEDS: VANCOMYCIN 1 GM in IV D5W 250 ML IV SCH ×3 (09:07→23:35)
[2018-03-30] MEDS: DAKINS QUARTER STRENGTH (0.125%) 480 ML BOTTLE TOP SCH ×2 (09:24→21:19)
[2018-03-30] MEDS: Z GUARD REMEDY 2 OZ OINT TP SCH (09:25)
[2018-03-30] MEDS ORDERED: PEG 3350/NA SULF,BICARB,CL/KCL 4,000 ML BOTTLE PO ONE (15:00)
[2018-03-30] MEDS: CEFEPIME 2 GM in IV D5W 100 ML IV SCH ×2 (20:24→21:00)
[2018-03-30] MEDS: MIRTAZAPINE 15 MG TABLET GT SCH (22:09)
[2018-03-30] MEDS: GABAPENTIN 300 MG CAPSULE GT SCH (22:09)
[2018-03-31] VITALS: BP 134/68
[2018-03-31] MEDS: MORPHINE SULFATE INJ 4 MG/ML DISP.SYRIN IV PRN ×6 (00:01→21:08)
[2018-03-31 04:00] VITALS: BP 125/68
[2018-03-31] MEDS: CEFEPIME 2 GM in IV D5W 100 ML IV SCH ×3 (05:02→21:07)
[2018-03-31] MEDS: HYDROCODONE/APAP 5/325MG 1 EACH TABLET GT SCH ×4 (05:34→23:58)
[2018-03-31 06:48] LABS: CALCIUM, SERUM 8.3 mg/dL (8.5-10.1); CREATININE 0.3 mg/dL (0.6-1.3); POTASSIUM 3.4 mmol/L (3.5-5.1)
[2018-03-31 06:50] LABS: BASOPHILS % (AUTO) 0.6 % (0.0-2.0); EOSINOPHILS % (AUTO) 2.5 % (0.0-6.0); HEMATOCRIT 25 % (39-51); LYMPHOCYTES # (AUTO) 1.1 /CMM (0.8-4.8); LYMPHOCYTES % (AUTO) 13.2 % (20.0-44.0); MEAN CORPUSCULAR HEMOGLOBIN 29 PG (26.0-33.0); MEAN CORPUSCULAR HGB CONC 32 g/dl (31.0-36.0); MEAN CORPUSCULAR VOLUME 90 fL (80-96); MONOCYTES # (AUTO) 0.5 /CMM (0.1-1.30); MONOCYTES % (AUTO) 6.3 % (2.0-12.0); NEUTROPHILS # (AUTO) 6.3 /CMM (1.8-8.9); NEUTROPHILS % (AUTO) 77.4 % (43.0-81.0); PLATELET COUNT (AUTO) 416 /CMM (150-450); RDW COEFFICIENT OF VARIATION 14.7 (11.5-15.0); RED BLOOD CELL COUNT(AUTO) 2.78 MIL/uL (4.5-6.0); WHITE BLOOD COUNT (AUTO) 8.1 K/uL (4.3-11.0)
[2018-03-31 08:00] VITALS: BP 101/54
[2018-03-31] MEDS: VANCOMYCIN 1 GM in IV D5W 250 ML IV SCH (08:45)
[2018-03-31] MEDS: DOCUSATE SODIUM LIQ 100 MG/10 ML UDC GT SCH ×2 (08:50→16:47)
[2018-03-31] MEDS: GABAPENTIN 100 MG CAPSULE GT SCH ×3 (08:50→16:47)
[2018-03-31] MEDS: FERROUS SULFATE UDC 300 MG/5 ML UDC GT SCH ×2 (08:50→16:47)
[2018-03-31] MEDS: LEVETIRACETAM SOL (5 ML) 100 MG/ML UDC GT SCH ×2 (08:50→16:47)
[2018-03-31] MEDS: ASCORBIC ACID 500 MG TABLET GT SCH (08:50)
[2018-03-31] MEDS: Z GUARD REMEDY 2 OZ OINT TP SCH (08:51)
[2018-03-31] MEDS: DAKINS QUARTER STRENGTH (0.125%) 480 ML BOTTLE TOP SCH ×2 (08:51→21:20)
[2018-03-31] MEDS: PANTOPRAZOLE 40 MG VIAL IV SCH ×2 (08:51→16:47)
[2018-03-31] MEDS: MULTIVITAMINS,THERAGRAN 1 UDTAB TABLET GT SCH (08:51)
[2018-03-31] MEDS ORDERED: POTASSIUM CHLORIDE 20 MEQ POWDER PACKET PO SCH (10:30)
[2018-03-31 12:00] VITALS: BP 123/74
[2018-03-31] MEDS ORDERED: ANESTHESIA TRAY IN PYXIS 1 EA TRAY MC ONE (12:27)
[2018-03-31] MEDS ORDERED: POTASSIUM CHLORIDE 20 MEQ POWDER PACKET GT ONE (12:30)
[2018-03-31] MEDS: IV NS 0.9% 1,000 ML IV PRN (15:56)
[2018-03-31 16:00] VITALS: BP 99/60
[2018-03-31 20:00] VITALS: BP 97/56
[2018-03-31] MEDS: MIRTAZAPINE 15 MG TABLET GT SCH (21:07)
[2018-03-31] MEDS: GABAPENTIN 300 MG CAPSULE GT SCH (21:07)
[2018-04-01] VITALS: BP 89/44
[2018-04-01] MEDS: MORPHINE SULFATE INJ 4 MG/ML DISP.SYRIN IV PRN ×4 (01:02→13:56)
[2018-04-01] MEDS: ACETAMINOPHEN 650 MG/20.3 ML UDC GT PRN ×2 (03:36→08:41)
[2018-04-01 04:00] VITALS: BP 99/67
[2018-04-01] MEDS: CEFEPIME 2 GM in IV D5W 100 ML IV SCH ×2 (05:14→12:13)
[2018-04-01] MEDS: HYDROCODONE/APAP 5/325MG 1 EACH TABLET GT SCH ×3 (05:15→17:25)
[2018-04-01] MEDS: IV NS 0.9% 1,000 ML IV PRN (05:50)
[2018-04-01 07:17] LABS: BASOPHILS % (AUTO) 0.6 % (0.0-2.0); CALCIUM, SERUM 8.6 mg/dL (8.5-10.1); CREATININE 0.3 mg/dL (0.6-1.3); EOSINOPHILS % (AUTO) 2.4 % (0.0-6.0); HEMATOCRIT 25 % (39-51); HEMOGLOBIN 8.1 g/dL (13.5-17.5); LYMPHOCYTES # (AUTO) 1.2 /CMM (0.8-4.8); LYMPHOCYTES % (AUTO) 15.8 % (20.0-44.0); MEAN CORPUSCULAR HEMOGLOBIN 29 PG (26.0-33.0); MEAN CORPUSCULAR HGB CONC 33 g/dl (31.0-36.0); MEAN CORPUSCULAR VOLUME 90 fL (80-96); MONOCYTES # (AUTO) 0.5 /CMM (0.1-1.30); MONOCYTES % (AUTO) 6.8 % (2.0-12.0); NEUTROPHILS # (AUTO) 5.6 /CMM (1.8-8.9); NEUTROPHILS % (AUTO) 74.4 % (43.0-81.0); PLATELET COUNT (AUTO) 439 /CMM (150-450); POTASSIUM 3.6 mmol/L (3.5-5.1); RDW COEFFICIENT OF VARIATION 15.4 (11.5-15.0); RED BLOOD CELL COUNT(AUTO) 2.76 MIL/uL (4.5-6.0); WHITE BLOOD COUNT (AUTO) 7.6 K/uL (4.3-11.0)
[2018-04-01 08:00] VITALS: BP 129/65
[2018-04-01] MEDS: FERROUS SULFATE UDC 300 MG/5 ML UDC GT SCH ×2 (08:29→17:25)
[2018-04-01] MEDS: GABAPENTIN 100 MG CAPSULE GT SCH ×3 (08:29→17:25)
[2018-04-01] MEDS: ASCORBIC ACID 500 MG TABLET GT SCH (08:29)
[2018-04-01] MEDS: DOCUSATE SODIUM LIQ 100 MG/10 ML UDC GT SCH ×2 (08:29→17:25)
[2018-04-01] MEDS: MULTIVITAMINS,THERAGRAN 1 UDTAB TABLET GT SCH (08:29)
[2018-04-01] MEDS: LEVETIRACETAM SOL (5 ML) 100 MG/ML UDC GT SCH ×2 (08:29→17:24)
[2018-04-01] MEDS: PANTOPRAZOLE 40 MG VIAL IV SCH ×2 (08:29→17:24)
[2018-04-01] MEDS: DAKINS QUARTER STRENGTH (0.125%) 480 ML BOTTLE TOP SCH (08:30)
[2018-04-01] MEDS: Z GUARD REMEDY 2 OZ OINT TP SCH (08:31)
[2018-04-01 12:00] VITALS: BP 120/61
[2018-04-01 16:00] VITALS: BP 130/68
[2018-04-01] MEDS ORDERED: LEVOFLOXACIN (500MG) 500 MG TABLET PO SCH (16:00)
== END 2018-04-01 17:19 | DRG 951 ==
LOC: ER 10:39 → TELE-TD 12:19 → TELE1 03-31 17:28
PROVIDERS: ADMIT Nurse Practitioner Acute Care; ATTEND Nurse Practitioner Acute Care
PROC: 5A1945Z Respiratory Ventilation, 24-96 Consecutive Hours (ICD-10-PCS; principal; 2018-03-27)
PROC: 0KBT0ZZ Excision of Left Lower Leg Muscle, Open Approach (ICD-10-PCS; principal; 2018-03-27)
PROC: 0KBS0ZZ Excision of Right Lower Leg Muscle, Open Approach (ICD-10-PCS; principal; 2018-03-27)
PROC: 0QB10ZZ Excision of Sacrum, Open Approach (ICD-10-PCS; 2018-03-29)
PROC: 0DJD8ZZ Inspection of Lower Intestinal Tract, Via Natural or Artificial Opening Endoscopic (ICD-10-PCS; 2018-03-31)
PROC: 0DB68ZX Excision of Stomach, Via Natural or Artificial Opening Endoscopic, Diagnostic (ICD-10-PCS; 2018-03-31)
DX: T17.990A Other foreign object in respiratory tract, part unspecified in causing asphyxiation, initial encounter (principal); A41.9 Sepsis, unspecified organism; E43 Unspecified severe protein-calorie malnutrition; L89.124 Pressure ulcer of left upper back, stage 4; J18.9 Pneumonia, unspecified organism; J90 Pleural effusion, not elsewhere classified; Z99.11 Dependence on respirator [ventilator] status; L89.894 Pressure ulcer of other site, stage 4; L89.134 Pressure ulcer of right lower back, stage 4; L89.154 Pressure ulcer of sacral region, stage 4; R53.2 Functional quadriplegia; N39.0 Urinary tract infection, site not specified; D68.59 Other primary thrombophilia; F32.9 Major depressive disorder, single episode, unspecified; G40.909 Epilepsy, unspecified, not intractable, without status epilepticus; J96.11 Chronic respiratory failure with hypoxia; L21.9 Seborrheic dermatitis, unspecified; S14.109S Unspecified injury at unspecified level of cervical spinal cord, sequela; Z91.19 Patient's noncompliance with other medical treatment and regimen; Z79.899 Other long term (current) drug therapy; Z79.01 Long term (current) use of anticoagulants; W34.00XS Accidental discharge from unspecified firearms or gun, sequela; Z87.440 Personal history of urinary (tract) infections; Z93.0 Tracheostomy status; Z93.1 Gastrostomy status; G89.29 Other chronic pain; I10 Essential (primary) hypertension; B96.89 Other specified bacterial agents as the cause of diseases classified elsewhere; M86.9 Osteomyelitis, unspecified; N48.30 Priapism, unspecified; B96.5 Pseudomonas (aeruginosa) (mallei) (pseudomallei) as the cause of diseases classified elsewhere; D50.9 Iron deficiency anemia, unspecified; X58.XXXA Exposure to other specified factors, initial encounter; Y92.129 Unspecified place in nursing home as the place of occurrence of the external cause; K64.8 Other hemorrhoids; K29.70 Gastritis, unspecified, without bleeding
CPT/HCPCS: 31720; 36415; 71045-TC; 80048-TC; 80076-TC; 80202-TC; 81000-TC; 82728-TC; 83540-TC; 83605-TC; 83735-TC; 84100-TC; 84484-TC; 85025-TC; 85730-TC; 86850-TC; 86921-TC; 87040-TC; 87070-TC; 87081-TC; 87086-TC; 87186-TC; 88305-TC; 88313-TC; 88342; 92611-TC; 94002-TC; 94003-TC; 94640-TC; 94760-TC; 94762-TC; A4216; A4606; A6253; A6402; A6403; C9113; J0692; J1200; J1953; J2185; J2270; J3370; J3480; J7030; J7050; J7060; P9016-BL; Z7610